=== PATIENT | female | born 1955 | race Caucasian/White ===

== ENCOUNTER → 2016-10-26 | Outpatient (CLI) | payer OTHER ==
[~2016-10-26] MED LIST: ESCI1TAB10 PO; SIMV20TA2 PO
[2016-10-26 13:47] LABS: ALB/GLOB RATIO 1.3 (0.9-2); ALKALINE PHOSPHATASE 82 U/L (45-117); ALT/SGPT 29 U/L (12-78); AST/SGOT 13 U/L (15-37); BLOOD UREA NITROGEN 23 mg/dl (7-18); BUN/CREATININE RATIO 22.9 (10-20); CALCIUM 9.2 mg/dl (8.5-10.1); CARBON DIOXIDE 26 mmol/L (21-32); CHLORIDE 105 mmol/L (98-107); CHOLESTEROL 192 mg/dl (0-200); GLUCOSE 91 mg/dl (70-99); POTASSIUM 3.7 mmol/L (3.5-5.1); SODIUM 140 mmol/L (136-145); TRIGLYCERIDES 151 mg/dl (0-150); VERY LOW DENSITY LIPOPROT CALC 30 mg/dl
[2016-10-26 13:55] LABS: CHOLESTEROL/HDL RATIO 3.9; HDL CHOLESTEROL 49 mg/dl; LDL CHOLESTEROL CALCULATED 113 mg/dl
== END | disposition home or self-care (01) ==
LOC: C.LABPVFM 07:54
PROVIDERS: ATTEND Family Medicine
DX: Z13.21 Encounter for screening for nutritional disorder (principal); I10 Essential (primary) hypertension; E87.6 Hypokalemia; E78.00 Pure hypercholesterolemia, unspecified

== ENCOUNTER → 2017-03-31 | Outpatient (CLI) | payer OTHER ==
[2017-03-31 13:43] LABS: ALKALINE PHOSPHATASE 90 U/L (45-117); ALT/SGPT 42 U/L (12-78); AST/SGOT 23 U/L (15-37); BLOOD UREA NITROGEN 18 mg/dl (7-18); BUN/CREATININE RATIO 18.9 (10-20); CALCIUM 9.5 mg/dl (8.5-10.1); CARBON DIOXIDE 28 mmol/L (21-32); CHLORIDE 103 mmol/L (98-107); CHOLESTEROL 182 mg/dl (0-200); CREATININE 0.95 mg/dl (0.60-1.20); GLUCOSE 76 mg/dl (70-99); HDL CHOLESTEROL 45 mg/dl; LDL CHOLESTEROL CALCULATED 110 mg/dl; POTASSIUM 3.7 mmol/L (3.5-5.1); SODIUM 139 mmol/L (136-145); TRIGLYCERIDES 137 mg/dl (0-150); VERY LOW DENSITY LIPOPROT CALC 27 mg/dl
[2017-03-31 13:44] LABS: ALB/GLOB RATIO 1.3 (0.9-2)
== END | disposition home or self-care (01) ==
LOC: C.LABPVFM 13:32
PROVIDERS: ATTEND Nurse Practitioner Family
DX: E78.00 Pure hypercholesterolemia, unspecified (principal); I10 Essential (primary) hypertension; E87.6 Hypokalemia

== ENCOUNTER 2018-03-14 00:49 | Emergency (ER) | payer OTHER ==
[~2018-03-14] VITALS: Ht 170.2 cm; Wt 93.1 kg
[~2018-03-14 00:49] MED LIST changes: +ACET1TAB84 PO; +CALC-354 PO; +CHOL20007 PO; +FLUTICASONE SPRAY NAE; +HYG25 PO; +POTA10CA28 PO; +SIMV10TA2 PO; -SIMV20TA2 PO
--- NOTE | 2018-03-14 01:17 | EMERGENCY ROOM VISIT NOTE ---
History Report prepared by Torri: Malia Mckeon Under the Supervision of: Sobia TrujilloO. First contact with patient: 01:04 Chief Complaint: ABDOMINAL PAIN Stated Complaint: PAIN IN STOMACH History of Present Illness The patient is a 62 year old female who presents to the Emergency Room with complaints of worsening abdominal pain beginning 4 days ago. She describes the pain as excruciating. The patient states that she was here 4 days ago and had 2 CTs done-one with contrast and one without. She states that she was told that she has a small bowel obstruction and states that her white count was also up. She states that she was placed on Flagyl and was taken off of it 3 nights ago. The patient states that she was fed solid foods before she went home and was discharged 2 days ago at 1100. She states that she could feel her pain worsening with every meal she ate. The patient states that she had diarrhea from the contrast. She states that she had a bowel movement today and that it was not black or bloody. She denies a history of bowel obstructions or abdominal surgeries. The patient reports having fevers and chills when she got home. She does report having nausea but denies vomiting today. The patient also reports feeling bloated and distended. The patient states that she had cooked cereal, a hot dog, cauliflower, broccoli, chicken, and a baked potato. She reports drinking a lot of water and states that this was normal food for her to eat. The patient denies a family history of a cholecystectomy. She states that she has had a colonoscopy that was normal but has never had an endoscopy before. Source of History: patient Onset: 4 days ago Position: abdomen Symptom Intensity: excruciating Timing: worsening Associated Symptoms: + fevers, + chills, + nausea, No vomiting Review of Systems See HPI for pertinent positives & negatives. A total of 10 systems reviewed and were otherwise negative. Past Medical & Surgical Medical Problems: (1) SBO (small bowel obstruction) Family History Patient reports no known family medical history. Social History Smoking Status: Never Smoker Drug Use: none Marital Status: Housing Status: lives with significant other Occupation Status: employed Current/Historical Medications Scheduled Acetaminophen (Tylenol Arthritis Ext Rel), 1,300 MG PO Q12 Calcium Carbonate-Cholecalcife (Caltrate 600+D), 1 TAB PO DAILY Chlorthalidone (Chlorthalidone), 25 MG PO DAILY Cholecalciferol (Vitamin D3), 1 TAB PO DAILY Escitalopram Oxalate (Lexapro), 20 MG PO DAILY Potassium Chloride (Micro-K Ext Rel), 10 MEQ PO DAILY Simvastatin (Zocor), 10 MG PO QPM [Fluticasone [place]], 1 SPRAY HAILEY BID Allergies Coded Allergies: Penicillins (Unverified Allergy, Mild, 03/14/18) Physical Exam Vital Signs Date Time Temp Pulse Resp B/P (MAP) Pulse Ox O2 Delivery O2 Flow Rate FiO2 03/14/18 08:15 68 18 120/70 94 Room Air 03/14/18 07:06 74 18 116/75 91 Room Air 03/14/18 06:37 65 16 122/78 92 Room Air 03/14/18 05:28 61 16 135/61 94 Room Air 03/14/18 03:57 36.5 66 14 120/76 96 Room Air 03/14/18 02:28 66 14 145/82 94 Room Air 03/14/18 01:41 74 03/14/18 00:54 36.5 82 18 149/85 96 Room Air Physical Exam GENERAL: alert, appears mildly uncomfortable, well nourished, no distress, non- toxic EYE EXAM: normal conjunctiva, PERRL and EOM's grossly intact OROPHARYNX: no exudate, no erythema, lips, buccal mucosa, and tongue normal and mucous membranes are moist NECK: supple, no nuchal rigidity, no adenopathy, non-tender LUNGS: Clear to auscultation. Normal chest wall mechanics HEART: no murmurs, S1 normal and S2 normal ABDOMEN: abdomen soft, dull to percussion, pain with palpation of the central abdomen, normo-active bowel sounds, no pulsatile masses, no rebound or guarding. BACK: Back is symmetrical on inspection and there is no deformity, no midline tenderness, no CVA tenderness. SKIN: no rashes and no bruising UPPER EXTREMITIES: upper extremities are grossly normal. LOWER EXTREMITIES: No pitting edema. NEURO EXAM: Normal sensorium, cranial nerves II-XII intact, normal speech, no weakness of arms, no weakness of legs. Medical Decision & Procedures ER Provider Diagnostic Interpretation: Radiology results per my review. Chest X-Ray: No cardiomegaly. No effusion. No wide mediastinum. No consolidation. Abdominal X-Ray: No definite small bowel obstruction. Scattered air. No free air. Laboratory Results 03/14/18 01:43 Red Blood Count 5.16, Mean Corpuscular Volume 84.5, Mean Corpuscular Hemoglobin 27.5, Mean Corpuscular Hemoglobin Concent 32.6, Mean Platelet Volume 9.1, Neutrophils (%) (Auto) 75.7, Lymphocytes (%) (Auto) 15.4, Monocytes (%) (Auto) 6.4, Eosinophils (%) (Auto) 1.5, Basophils (%) (Auto) 0.4, Neutrophils # (Auto) 10.86, Lymphocytes # (Auto) 2.21, Monocytes # (Auto) 0.92, Eosinophils # (Auto) 0.21, Basophils # (Auto) 0.06 03/14/18 01:43 Test 03/14/18 01:43 03/14/18 01:47 03/14/18 04:55 White Blood Count 14.34 K/uL (4.8-10.8) Red Blood Count 5.16 M/uL (4.2-5.4) Hemoglobin 14.2 g/dL (12.0-16.0) Hematocrit 43.6 % (37-47) Mean Corpuscular Volume 84.5 fL (80-100) Mean Corpuscular Hemoglobin 27.5 pg (25-34) Mean Corpuscular Hemoglobin Concent 32.6 g/dl (32-36) Platelet Count 412 K/uL (130-400) Mean Platelet Volume 9.1 fL (7.4-10.4) Neutrophils (%) (Auto) 75.7 % Lymphocytes (%) (Auto) 15.4 % Monocytes (%) (Auto) 6.4 % Eosinophils (%) (Auto) 1.5 % Basophils (%) (Auto) 0.4 % Neutrophils # (Auto) 10.86 K/uL (1.4-6.5) Lymphocytes # (Auto) 2.21 K/uL (1.2-3.4) Monocytes # (Auto) 0.92 K/uL (0.11-0.59) Eosinophils # (Auto) 0.21 K/uL (0-0.5) Basophils # (Auto) 0.06 K/uL (0-0.2) RDW Standard Deviation 41.0 fL (36.4-46.3) RDW Coefficient of Variation 13.4 % (11.5-14.5) Immature Granulocyte % (Auto) 0.6 % Immature Granulocyte # (Auto) 0.08 K/uL (0.00-0.02) Anion Gap 8.0 mmol/L (3-11) Est Creatinine Clear Calc Drug Dose 71.5 ml/min Estimated GFR () 72.7 Estimated GFR (Non- 62.7 BUN/Creatinine Ratio 15.9 (10-20) Calcium Level 9.0 mg/dl (8.5-10.1) Total Bilirubin 0.4 mg/dl (0.2-1) Aspartate Amino Transf (AST/SGOT) 16 U/L (15-37) Alanine Aminotransferase (ALT/SGPT) 39 U/L (12-78) Alkaline Phosphatase 91 U/L (45-117) Troponin I < 0.015 ng/ml (0-0.045) Total Protein 7.1 gm/dl (6.4-8.2) Albumin 3.7 gm/dl (3.4-5.0) Globulin 3.4 gm/dl (2.5-4.0) Albumin/Globulin Ratio 1.1 (0.9-2) Lipase 105 U/L (73-393) Bedside Lactic Acid Venous 1.20 mmol/L (0.90-1.70) Urine Color YELLOW Urine Appearance CLEAR (CLEAR) Urine pH 5.0 (4.5-7.5) Urine Specific [place] 1.015 (1.000-1.030) Urine Protein NEG (NEG) Urine Glucose (UA) NEG (NEG) Urine Ketones NEG (NEG) Urine Occult Blood TRACE (NEG) Urine Nitrite NEG (NEG) Urine Bilirubin NEG (NEG) Urine Urobilinogen NEG (NEG) Urine Leukocyte Esterase LARGE (NEG) Urine WBC (Auto) >30 /hpf (0-5) Urine RBC (Auto) 5-10 /hpf (0-4) Urine Hyaline Casts (Auto) 1-5 /lpf (0-5) Urine Epithelial Cells (Auto) 10-20 /lpf (0-5) Urine Bacteria (Auto) NEG (NEG) Laboratory results per my review. Medications Administered Medications (Trade) Dose Ordered Sig/Yessenia Route Start Time Stop Time Status Last Admin Dose Admin Sodium Chloride 500 ml @ 999 mls/hr Q31M STAT IV 03/14/18 01:22 03/14/18 01:52 DC 03/14/18 01:38 999 MLS/HR Ondansetron HCl (Zofran Inj) 4 mg NOW STAT IV 03/14/18 01:22 03/14/18 01:24 DC 03/14/18 01:38 4 MG Morphine Sulfate (MoRPHine SULFATE INJ) 4 mg NOW STAT IV 03/14/18 01:22 03/14/18 01:24 DC 03/14/18 01:38 4 MG Dicyclomine HCl (Bentyl Cap) 20 mg STK-MED ONCE .ROUTE 03/14/18 02:26 03/14/18 02:27 DC 03/14/18 02:27 20 MG Ketorolac Tromethamine (Toradol Inj) 30 mg NOW STAT IV 03/14/18 03:07 03/14/18 03:09 DC 03/14/18 03:13 30 MG Metoclopramide HCl (Reglan Inj) 10 mg NOW STAT IV 03/14/18 03:36 03/14/18 03:37 DC 03/14/18 03:45 10 MG Diphenhydramine HCl (Benadryl Inj) 12.5 mg NOW STAT IV 03/14/18 03:36 03/14/18 03:37 DC 03/14/18 03:45 12.5 MG Sodium Chloride 500 ml @ 999 mls/hr Q31M STAT IV 03/14/18 05:18 03/14/18 05:48 DC 03/14/18 05:25 999 MLS/HR Ceftriaxone Sodium (Rocephin Inj) 1 gm NOW STAT IV 03/14/18 06:23 03/14/18 06:24 DC 03/14/18 06:30 1 GM Sodium Chloride 1,000 ml @ 100 mls/hr Q10H IV 03/14/18 08:30 04/13/18 08:29 03/14/18 19:29 100 MLS/HR ECG Per My Interpretation Indication: abdominal pain Rate (beats per minute): 67 Rhythm: sinus rhythm Findings: no acute ischemic change, no ectopy, other (normal axis, normal intervals ) ED Course 0109: The patient was evaluated in room C11B. A complete history and physical exam was performed. 0122: Ordered Morphine Sulfate 4 mg IV, Zofran Inj 4 mg IV, Sodium Chloride 500 ml @ 999 mls/hr IV. 0127: Review of EMR showed that 2 CTs scans were performed during the patient's last admission. Bowel obstruction noted. No other acute pathology was found. 0226: Ordered Bentyl Cap 20 mg .ROUTE. 0305: I checked on the patient. She says that she still has pain but not as bad. She reports that she is no longer nauseous. 0307: Ordered Toradol Inj 30 mg IV. 0336: Ordered Benadryl Inj 12.5 mg IV, Reglan Inj 10 mg IV. 0355: I checked on the patient. She is resting and states that her pain is better at a 3/10 now. 0438: I checked on the patient. She states that she does not have any pain and that she is not nauseous. 0454: I reassessed the patient. She is still having pain and is not passing gas. 0517: Per nursing staff, the patient declined the morphine and stated that she does not have any pain. 0518: Ordered Sodium Chloride 500 ml @ 999 mls/hr IV. 0535: I reviewed the patient's case with Rory Atwood PA-C-[facility] who will evaluate the patient. 0615: Rory Atwood PA-C has seen and examined the patient. He discussed the patient's case with Dr. Prajapati. They would like the patient admitted to medicine for conservative management and close observation. Dr. Prajapati will be down to see and examine the patient himself. We agree that the patient does not need an NG tube at this time. 0623: Ordered Rocephin Inj 1 gm IV. Medical Decision Differential diagnosis: Etiologies such as appendicitis, diverticulitis, PUD, biliary pathology, UTI, pancreatitis, obstruction, mesenteric ischemia, aortic pathology, infections, inflammatory bowel disease, renal colic, as well as others were entertained. Patient here presenting with abdominal pain following a recent admission for small bowel obstruction with no prior history of abdominal surgeries. Initially given patient's recent advancement diet thought perhaps symptomatic from initiating high-fiber diet again. Patient's pain was improved but not completely resolved with medications. Nausea improved also although patient with no appetite I do not want to even try ice chips. Patient monitored for several hours as a precaution, allowed to walk around, but again had persistent pain and still denied any flatulence. Patient afebrile. Mild leukocytosis noted again similar to recent admission for small bowel obstruction. Possible UTI noted and patient covered with 1 dose of Rocephin, although patient denies any symptoms. Given patient had 2 CAT scans within the last week, opted for x-rays first and close monitoring and serial abdominal exams. Given patient's description that symptoms and pain were similar to presentation of bowel obstruction patient has not had any flatulence since her bowel movement this morning, I discussed the case with surgery. Patient seen in the emergency room by the surgical PA. I feel patient should be admitted for observation however think she should be admitted to medicine as they do not feel she requires acute surgical intervention. I do not suspect bacteremia/sepsis, or vascular etiology of patient's pain. Patient aware of results and concern given presentation, and is agreeable with plan. Medication Reconcilliation Current Medication List: was personally reviewed by me Blood Pressure Screening Patient's blood pressure: Elevated blood pressure Blood pressure disposition: Elevated BP felt to be situational Consults Time Called: 050 Consulting Physician: Rory Rojas [facility] Returned Call: 05 I reviewed the patient's case with Rory Sutton [facility] who will evaluate the patient. Additional Consults: Time Called: 07 Consulted Physician: [facility] hospitalist Returned Call: 07 Additional Comments: Discussed with Dr. Blanc for additional evaluation and treatment. Impression Primary Impression: Abdominal pain Additional Impressions: Nausea UTI (urinary tract infection) Scribe Attestation The scribe's documentation has been prepared under my direction and personally reviewed by me in its entirety. I confirm that the note above accurately reflects all work, treatment, procedures, and medical decision making performed by me. Departure Information Dispostion Being Evaluated By Hospitalist Referrals Leonela Romo M.D. (PCP) Patient Instructions My [facility] Problem Qualifiers Primary Impression: Abdominal pain Abdominal location: periumbilical Qualified Codes: R10.33 - Periumbilical pain Additional Impressions: UTI (urinary tract infection) Urinary tract infection type: acute cystitis Hematuria presence: without hematuria Qualified Codes: N30.00 - Acute cystitis without hematuria
[2018-03-14] MEDS ORDERED: MoRPHine SULFATE 4 MG/ML 1 ML CARP\\VIAL IV STA ×2 (01:22→05:03)
[2018-03-14] MEDS ORDERED: ONDANSETRON INJ 2 MG/ML 2 ML VIAL IV STA (01:22)
[2018-03-14] MEDS ORDERED: SODIUM CHLORIDE 0.9% 500ML 500 ML IV STA ×2 (01:22→05:18)
[2018-03-14 01:52] LABS: BASO % 0.4 %; BASO ABS # 0.06 K/uL (0-0.2); EOS % 1.5 %; EOS ABS # 0.21 K/uL (0-0.5); HEMATOCRIT 43.6 % (37-47); HEMOGLOBIN 14.2 g/dL (12.0-16.0); IG# 0.08 K/uL (0.00-0.02); LYMPH % 15.4 %; LYMPH ABS # 2.21 K/uL (1.2-3.4); MEAN CELL VOLUME 84.5 fL (80-100); MEAN CORPUSCULAR HEMOGLOBIN 27.5 pg (25-34); MEAN CORPUSCULAR HGB CONC 32.6 g/dl (32-36); MEAN PLATELET VOLUME 9.1 fL (7.4-10.4); MONO % 6.4 %; MONO ABS # 0.92 K/uL (0.11-0.59); NEUT % 75.7 %; NEUT ABS # 10.86 K/uL (1.4-6.5); PLATELET COUNT 412 K/uL (130-400); RED CELL DISTRIBUTION WIDTH CV 13.4 % (11.5-14.5); WHITE BLOOD COUNT 14.34 K/uL (4.8-10.8)
[2018-03-14] MEDS ORDERED: DICYCLOMINE HCL 20 MG TAB PO STA (02:19)
[2018-03-14 02:21] LABS: ALBUMIN 3.7 gm/dl (3.4-5.0); ALKALINE PHOSPHATASE 91 U/L (45-117); ALT/SGPT 39 U/L (12-78); AST/SGOT 16 U/L (15-37); CARBON DIOXIDE 25 mmol/L (21-32); CREATININE 0.98 mg/dl (0.60-1.20); GLUCOSE 105 mg/dl (70-99); LIPASE 105 U/L (73-393); POTASSIUM 3.9 mmol/L (3.5-5.1); SODIUM 140 mmol/L (136-145); TOTAL PROTEIN 7.1 gm/dl (6.4-8.2)
[2018-03-14] MEDS ORDERED: DICYCLOMINE HCL 10 MG CAP ONE (02:26)
[2018-03-14 02:43] LABS: BLOOD UREA NITROGEN 16 mg/dl (7-18)
[2018-03-14] MEDS ORDERED: KETOROLAC TROMETHAMINE 30 MG/ML VIAL IV STA (03:07)
[2018-03-14] MEDS ORDERED: DiphenhydrAMINE HCL 50 MG/ML VIAL IV STA (03:36)
[2018-03-14] MEDS ORDERED: METOCLOPRAMIDE HCL INJ 5 MG/ML 2 ML VIAL IV STA (03:36)
[2018-03-14] MEDS ORDERED: CEFTRIAXONE SOD INJ 1 GM ADDVIAL IV STA (06:23)
--- NOTE | 2018-03-14 06:28 | DIAGNOSTIC IMAGING REPORT ---
ABDOMEN 2VIEW W/PA CHEST RTN CLINICAL HISTORY: abd pain, nausea pain. Nausea. COMPARISON STUDY: None FINDINGS: Several loops of small bowel right flank suggesting a nonspecific ileus. Renal and psoas shows unremarkable. There are no secondary signs of free air. IMPRESSION: Mild ileus. Nonobstructive bowel pattern. Negative chest. The above report was generated using voice recognition software. It may contain grammatical, syntax or spelling errors. Electronically signed by: Nino Neely M.D. 03/14/2018 6:27 AM Dictated Date/Time: 03/14/2018 6:26 AM
--- NOTE | 2018-03-14 06:34 | Surgery Consultation ---
Consultation Date of Consultation: Mar 14, 2018. Attending Physician: Reason for Consultation: abdominal pain History of Present Illness Patient presents to the ED with worsening abdominal pain and nausea x 2 days. She was recently hospitalized for her first SBO and discharged on 03/12/18. She had a repeat CT scan during her previous stay showing resolution of her obstruction. Today she presents with worsening abdominal pain and nausea. Reports her pain is most prominent in the periumbilical region. States "it feels like everytime I eat things dont move through." Reports feeling bloating. Denies any vomiting since her last admission. Last BM yesterday morning which was normal for her. Denies blood in stool. She is urinating without issue. Denies history of previous abdominal surgeries. Patient had a colonoscopy with Dr. Mike in 2013 showing left sided diverticulosis. Denies use of blood thinning or anticoagulant medications. WBC 14.34. Chest and Abdomen X-ray unremarkable. Family History Patient reports no known family medical history. Social History Smoking Status: Never Smoker Drug Use: none Marital Status: Housing Status: lives with significant other Occupation Status: employed Allergies Coded Allergies: Penicillins (Unverified Allergy, Mild, 03/14/18) Home Medications Scheduled Acetaminophen (Tylenol Arthritis Ext Rel), 1,300 MG PO Q12 Calcium Carbonate-Cholecalcife (Caltrate 600+D), 1 TAB PO DAILY Chlorthalidone (Chlorthalidone), 25 MG PO DAILY Cholecalciferol (Vitamin D3), 1 TAB PO DAILY Escitalopram Oxalate (Lexapro), 20 MG PO DAILY Potassium Chloride (Micro-K Ext Rel), 10 MEQ PO DAILY Simvastatin (Zocor), 10 MG PO QPM [Fluticasone [place]], 1 SPRAY HAILEY BID Review of Systems Constitutional: No fever, No chills Respiratory: No shortness of breath Cardiovascular: No chest pain Abdomen: + pain (generalized), + nausea, No vomiting, No diarrhea, No constipation Genitourinary - Female: No dysuria, No hematuria Integumentary: No new/changing skin lesions, No color change Physical Exam Date Time Temp Pulse Resp B/P (MAP) Pulse Ox O2 Delivery O2 Flow Rate FiO2 03/14/18 05:28 61 16 135/61 94 Room Air 03/14/18 03:57 36.5 66 14 120/76 96 Room Air 03/14/18 02:28 66 14 145/82 94 Room Air 03/14/18 01:41 74 03/14/18 00:54 36.5 82 18 149/85 96 Room Air General Appearance: no apparent distress, + obese Head: normocephalic, atraumatic ENT: hearing grossly normal Respiratory/Chest: no respiratory distress Abdomen/GI: soft, no organomegaly, no pulsatile mass, + tenderness (TTP generalized, most prominent in periumbilical area.) Neurologic/Psych: alert, normal mood/affect, oriented x 3 Skin: normal color, warm/dry Laboratory Results Last 24 Hours Test 03/14/18 01:43 03/14/18 01:47 03/14/18 04:55 White Blood Count 14.34 K/uL Red Blood Count 5.16 M/uL Hemoglobin 14.2 g/dL Hematocrit 43.6 % Mean Corpuscular Volume 84.5 fL Mean Corpuscular Hemoglobin 27.5 pg Mean Corpuscular Hemoglobin Concent 32.6 g/dl Platelet Count 412 K/uL Mean Platelet Volume 9.1 fL Neutrophils (%) (Auto) 75.7 % Lymphocytes (%) (Auto) 15.4 % Monocytes (%) (Auto) 6.4 % Eosinophils (%) (Auto) 1.5 % Basophils (%) (Auto) 0.4 % Neutrophils # (Auto) 10.86 K/uL Lymphocytes # (Auto) 2.21 K/uL Monocytes # (Auto) 0.92 K/uL Eosinophils # (Auto) 0.21 K/uL Basophils # (Auto) 0.06 K/uL RDW Standard Deviation 41.0 fL RDW Coefficient of Variation 13.4 % Immature Granulocyte % (Auto) 0.6 % Immature Granulocyte # (Auto) 0.08 K/uL Sodium Level 140 mmol/L Potassium Level 3.9 mmol/L Chloride Level 107 mmol/L Carbon Dioxide Level 25 mmol/L Anion Gap 8.0 mmol/L Blood Urea Nitrogen 16 mg/dl Creatinine 0.98 mg/dl Est Creatinine Clear Calc Drug Dose 71.5 ml/min Estimated GFR () 72.7 Estimated GFR (Non- 62.7 BUN/Creatinine Ratio 15.9 Random Glucose 105 mg/dl Calcium Level 9.0 mg/dl Total Bilirubin 0.4 mg/dl Aspartate Amino Transf (AST/SGOT) 16 U/L Alanine Aminotransferase (ALT/SGPT) 39 U/L Alkaline Phosphatase 91 U/L Troponin I < 0.015 ng/ml Total Protein 7.1 gm/dl Albumin 3.7 gm/dl Globulin 3.4 gm/dl Albumin/Globulin Ratio 1.1 Lipase 105 U/L Bedside Lactic Acid Venous 1.20 mmol/L Urine Color YELLOW Urine Appearance CLEAR Urine pH 5.0 Urine Specific [place] 1.015 Urine Protein NEG Urine Glucose (UA) NEG Urine Ketones NEG Urine Occult Blood TRACE Urine Nitrite NEG Urine Bilirubin NEG Urine Urobilinogen NEG Urine Leukocyte Esterase LARGE Urine WBC (Auto) >30 /hpf Urine RBC (Auto) 5-10 /hpf Urine Hyaline Casts (Auto) 1-5 /lpf Urine Epithelial Cells (Auto) 10-20 /lpf Urine Bacteria (Auto) NEG Assessment & Plan Abdominal pain, nausea, SBO? gastroparesis? Abdomen soft, non-distended, generalized TTP. Pain controlled. no N/V at this time. urinating without issue. stable, afebrile. No acute surgical intervention indicated at this time. May need to consider repeat CT despite recent imaging to further evaluate cause. Will consult GI for further evaluation. Conservative management of now. Admit per medicine service, NPO, IVF, pain medication prn, anti-emetics prn. Can hold on NGT at this time but may need to place if she develops persistent N/V. Findings discussed with Dr. Prajapati, will follow. Please contact with questions or concerns.
--- NOTE | 2018-03-14 06:54 | Surgery Progress Note ---
Surgery Progress Note Date of Service Mar 14, 2018. Subjective See note from Rory Atwood I saw pt in ER and reviewed history recent adm w/ nausea, bloating , abd pain- CT showed mildly dilated small bowel with subsequent re CT w/ contrast- sbo resolved c/o belching, bloating, abd pain- upper abd , bandlike- passing gas, bm yesterday Objective Vital Signs: Date Time Temp Pulse Resp B/P (MAP) Pulse Ox O2 Delivery O2 Flow Rate FiO2 03/14/18 06:37 65 16 122/78 92 Room Air 03/14/18 05:28 61 16 135/61 94 Room Air 03/14/18 03:57 36.5 66 14 120/76 96 Room Air 03/14/18 02:28 66 14 145/82 94 Room Air 03/14/18 01:41 74 03/14/18 00:54 36.5 82 18 149/85 96 Room Air General Appearance: no apparent distress Neck: supple Respiratory/Chest: no respiratory distress Abdomen: normal bowel sounds (has vigorous bowel sounds), non tender (min pain to palpation, no peritoneal irritation), + distended Laboratory Results: Results Past 24 Hours Test 03/14/18 01:43 03/14/18 01:47 03/14/18 04:55 Range/Units White Blood Count 14.34 4.8-10.8 K/uL Red Blood Count 5.16 4.2-5.4 M/uL Hemoglobin 14.2 12.0-16.0 g/dL Hematocrit 43.6 37-47 % Mean Corpuscular Volume 84.5 80-100 fL Mean Corpuscular Hemoglobin 27.5 25-34 pg Mean Corpuscular Hemoglobin Concent 32.6 32-36 g/dl Platelet Count 412 130-400 K/uL Mean Platelet Volume 9.1 7.4-10.4 fL Neutrophils (%) (Auto) 75.7 % Lymphocytes (%) (Auto) 15.4 % Monocytes (%) (Auto) 6.4 % Eosinophils (%) (Auto) 1.5 % Basophils (%) (Auto) 0.4 % Neutrophils # (Auto) 10.86 1.4-6.5 K/uL Lymphocytes # (Auto) 2.21 1.2-3.4 K/uL Monocytes # (Auto) 0.92 0.11-0.59 K/uL Eosinophils # (Auto) 0.21 0-0.5 K/uL Basophils # (Auto) 0.06 0-0.2 K/uL RDW Standard Deviation 41.0 36.4-46.3 fL RDW Coefficient of Variation 13.4 11.5-14.5 % Immature Granulocyte % (Auto) 0.6 % Immature Granulocyte # (Auto) 0.08 0.00-0.02 K/uL Sodium Level 140 136-145 mmol/L Potassium Level 3.9 3.5-5.1 mmol/L Chloride Level 107 98-107 mmol/L Carbon Dioxide Level 25 21-32 mmol/L Anion Gap 8.0 3-11 mmol/L Blood Urea Nitrogen 16 7-18 mg/dl Creatinine 0.98 0.60-1.20 mg/dl Est Creatinine Clear Calc Drug Dose 71.5 ml/min Estimated GFR () 72.7 Estimated GFR (Non- 62.7 BUN/Creatinine Ratio 15.9 10-20 Random Glucose 105 70-99 mg/dl Calcium Level 9.0 8.5-10.1 mg/dl Total Bilirubin 0.4 0.2-1 mg/dl Aspartate Amino Transf (AST/SGOT) 16 15-37 U/L Alanine Aminotransferase (ALT/SGPT) 39 12-78 U/L Alkaline Phosphatase 91 45-117 U/L Troponin I < 0.015 0-0.045 ng/ml Total Protein 7.1 6.4-8.2 gm/dl Albumin 3.7 3.4-5.0 gm/dl Globulin 3.4 2.5-4.0 gm/dl Albumin/Globulin Ratio 1.1 0.9-2 Lipase 105 73-393 U/L Bedside Lactic Acid Venous 1.20 0.90-1.70 mmol/L Urine Color YELLOW Urine Appearance CLEAR CLEAR Urine pH 5.0 4.5-7.5 Urine Specific [place] 1.015 1.000-1.030 Urine Protein NEG NEG Urine Glucose (UA) NEG NEG Urine Ketones NEG NEG Urine Occult Blood TRACE NEG Urine Nitrite NEG NEG Urine Bilirubin NEG NEG Urine Urobilinogen NEG NEG Urine Leukocyte Esterase LARGE NEG Urine WBC (Auto) >30 0-5 /hpf Urine RBC (Auto) 5-10 0-4 /hpf Urine Hyaline Casts (Auto) 1-5 0-5 /lpf Urine Epithelial Cells (Auto) 10-20 0-5 /lpf Urine Bacteria (Auto) NEG NEG Microbiology Results 03/14/18 Urine Culture, Received Pending Assessment & Plan 03/14/18- Nausea, belching, bloating, abd pain- active bowel sounds- not typical of mechanical bowel obstruction- ? enteritis . Will consider small bowel follow through study at some point- would have GI see pt. Order u/s gb to be complete Will follow for now.
[2018-03-14] MEDS ORDERED: ACETAMINOPHEN 325 MG TAB PO PRN (08:30)
[2018-03-14] MEDS ORDERED: ONDANSETRON INJ 2 MG/ML 2 ML VIAL IV PRN (08:30)
[2018-03-14] MEDS ORDERED: SOAP SUDS ENEMA PR ONE (08:45)
[2018-03-14] MEDS ORDERED: IV FLUIDS COMPLETED PRN (09:15)
[2018-03-14] MEDS: SODIUM CHLORIDE 0.9% 1000ML 1,000 ML IV SCH ×2 (09:35→19:29)
[2018-03-14 09:39] VITALS: BP 133/79; PULSE 74; TEMP 36.7; O2SAT 96; Ht 170.2 cm; Wt 93.1 kg
--- NOTE | 2018-03-14 09:49 | History and Physical ---
History & Physical Date & Time of Service: Mar 14, 2018 at 09:10 Chief Complaint: Pain In Stomach Primary Care Physician: Leonela Romo M.D. History of Present Illness pt presents with increased abdominal distension and pain, recently was hospitalized for ileus and resolved symtpoms did see surgery at that time and again this am without concern for an acute abdomen. Pt will be agreeable to observation for enema and cathartic agents Past Medical/Surgical History Medical Problems: (1) SBO (small bowel obstruction) Family History Patient reports no known family medical history. Social History Smoking Status: Never Smoker Drug Use: none Marital Status: Housing status: lives with family Occupational Status: employed Allergies Coded Allergies: Penicillins (Unverified Allergy, Mild, 03/14/18) Home Medications Scheduled Acetaminophen (Tylenol Arthritis Ext Rel), 1,300 MG PO Q12 Calcium Carbonate-Cholecalcife (Caltrate 600+D), 1 TAB PO DAILY Chlorthalidone (Chlorthalidone), 25 MG PO DAILY Cholecalciferol (Vitamin D3), 1 TAB PO DAILY Escitalopram Oxalate (Lexapro), 20 MG PO DAILY Potassium Chloride (Micro-K Ext Rel), 10 MEQ PO DAILY Simvastatin (Zocor), 10 MG PO QPM [Fluticasone [place]], 1 SPRAY HAILEY BID Review of Systems ROS: well nourished well developed. No double vision blurry vision No problems with speech or swallowing No palpitations, chest pain or pressure No Wheezing or breathing issues Diffuse abdominal pain with nausea but no vomiting and although small bowel movements no significant bowel movements No burning urine urine frequency or changes in color No focal joint pain or muscle pain No skin rashes or oral lesions No unusual bruising or bleeding No focused back pain or numbness or loss of strength No changes in memory or confusion Physical Exam Vital Signs Date Time Temp Pulse Resp B/P (MAP) Pulse Ox O2 Delivery O2 Flow Rate FiO2 03/14/18 09:05 60 20 118/67 94 Room Air 03/14/18 08:15 68 18 120/70 94 Room Air 03/14/18 07:06 74 18 116/75 91 Room Air 03/14/18 06:37 65 16 122/78 92 Room Air 03/14/18 05:28 61 16 135/61 94 Room Air 03/14/18 03:57 36.5 66 14 120/76 96 Room Air 03/14/18 02:28 66 14 145/82 94 Room Air 03/14/18 01:41 74 03/14/18 00:54 36.5 82 18 149/85 96 Room Air General Appearance: WD/WN, + mild distress Head: normocephalic, atraumatic Eyes: normal inspection, sclerae normal Neck: supple, no JVD Respiratory/Chest: chest non-tender, lungs clear, normal breath sounds Cardiovascular: regular rate, rhythm, no murmur Abdomen/GI: normal bowel sounds, + distended Back: normal inspection, no CVA tenderness, no muscle spasm Extremities/Musculoskelatal: normal inspection, no pedal edema 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, no motor/sensory deficits, alert, oriented x 3 Skin: normal color, warm/dry Diagnostics Laboratory Results Results Past 24 Hours Test 03/14/18 01:43 03/14/18 01:47 03/14/18 04:55 Range/Units White Blood Count 14.34 4.8-10.8 K/uL Red Blood Count 5.16 4.2-5.4 M/uL Hemoglobin 14.2 12.0-16.0 g/dL Hematocrit 43.6 37-47 % Mean Corpuscular Volume 84.5 80-100 fL Mean Corpuscular Hemoglobin 27.5 25-34 pg Mean Corpuscular Hemoglobin Concent 32.6 32-36 g/dl Platelet Count 412 130-400 K/uL Mean Platelet Volume 9.1 7.4-10.4 fL Neutrophils (%) (Auto) 75.7 % Lymphocytes (%) (Auto) 15.4 % Monocytes (%) (Auto) 6.4 % Eosinophils (%) (Auto) 1.5 % Basophils (%) (Auto) 0.4 % Neutrophils # (Auto) 10.86 1.4-6.5 K/uL Lymphocytes # (Auto) 2.21 1.2-3.4 K/uL Monocytes # (Auto) 0.92 0.11-0.59 K/uL Eosinophils # (Auto) 0.21 0-0.5 K/uL Basophils # (Auto) 0.06 0-0.2 K/uL RDW Standard Deviation 41.0 36.4-46.3 fL RDW Coefficient of Variation 13.4 11.5-14.5 % Immature Granulocyte % (Auto) 0.6 % Immature Granulocyte # (Auto) 0.08 0.00-0.02 K/uL Sodium Level 140 136-145 mmol/L Potassium Level 3.9 3.5-5.1 mmol/L Chloride Level 107 98-107 mmol/L Carbon Dioxide Level 25 21-32 mmol/L Anion Gap 8.0 3-11 mmol/L Blood Urea Nitrogen 16 7-18 mg/dl Creatinine 0.98 0.60-1.20 mg/dl Est Creatinine Clear Calc Drug Dose 71.5 ml/min Estimated GFR () 72.7 Estimated GFR (Non- 62.7 BUN/Creatinine Ratio 15.9 10-20 Random Glucose 105 70-99 mg/dl Calcium Level 9.0 8.5-10.1 mg/dl Total Bilirubin 0.4 0.2-1 mg/dl Aspartate Amino Transf (AST/SGOT) 16 15-37 U/L Alanine Aminotransferase (ALT/SGPT) 39 12-78 U/L Alkaline Phosphatase 91 45-117 U/L Troponin I < 0.015 0-0.045 ng/ml Total Protein 7.1 6.4-8.2 gm/dl Albumin 3.7 3.4-5.0 gm/dl Globulin 3.4 2.5-4.0 gm/dl Albumin/Globulin Ratio 1.1 0.9-2 Lipase 105 73-393 U/L Bedside Lactic Acid Venous 1.20 0.90-1.70 mmol/L Urine Color YELLOW Urine Appearance CLEAR CLEAR Urine pH 5.0 4.5-7.5 Urine Specific [place] 1.015 1.000-1.030 Urine Protein NEG NEG Urine Glucose (UA) NEG NEG Urine Ketones NEG NEG Urine Occult Blood TRACE NEG Urine Nitrite NEG NEG Urine Bilirubin NEG NEG Urine Urobilinogen NEG NEG Urine Leukocyte Esterase LARGE NEG Urine WBC (Auto) >30 0-5 /hpf Urine RBC (Auto) 5-10 0-4 /hpf Urine Hyaline Casts (Auto) 1-5 0-5 /lpf Urine Epithelial Cells (Auto) 10-20 0-5 /lpf Urine Bacteria (Auto) NEG NEG Microbiology Results 03/14/18 Urine Culture, Received Pending Diagnostic Radiology abdominal x ray Mild ileus. Nonobstructive bowel pattern. Negative chest. Impression Assessment and Plan 62 F with recurrent presentation for abdominal pain and distension, concern for possible ileus vs constipation. Did have surgical evaluation in the ER Abdominal pain/Ileus, will have enemas and cathartic agents, reportedly did have colo in last few years by Dr Mike and was unremarkable Hydrate and hold diuretic with recent decrease po intake, Parathyroidectomy, did have supplemental calcium ordered Depression will continue Lexapro has refused dvt prevention in the past, agreeable to scd Resuscitation Status VTE Prophylaxis Will order VTE Prophylaxis: Yes
[2018-03-14 10:00] VITALS: O2SAT 96
[2018-03-14] MEDS: POLYETHYLENE (MIRALAX) 17 GM PACK PO SCH ×2 (10:52→21:16)
[2018-03-14] MEDS: CALCIUM 600MG + VIT D 400 IU TAB PO SCH (10:53)
[2018-03-14] MEDS: ESCITALOPRAM OXALATE 20 MG TAB PO SCH (10:53)
--- NOTE | 2018-03-14 13:02 | Gastrointestinal Consultation ---
Gastrointestinal Consultation Date of Consultation: Mar 14, 2018 Attending Physician: Dr. Blanc Consulting Physician: Dr. Mike/ELISE Portillo Reason for Consultation: abdominal pain, bloating History of Present Illness Patient is a 62 year old female with a history of osteoarthritis, depression, hypercholesterolemia, hypokalemia and hypertension admitted to the hospital today with symptoms of abdominal pain and bloating that has been progressively worsening since discharge two days ago after a hospital admission for a small bowel obstruction. During her prior admission, she did undergo an IV enhanced CT scan of the abdomen and pelvis in the ER which demonstrated a mid to distal ileal small bowel obstruction which was resolved on follow up imaging performed two days later. She states she received oral contrast with the second CT scan although reports of enteric contrast within the rectum was noted on the second CT. She has not had any prior abdominal surgeries but does use daily NSAID therapy with Aleve for hand arthralgias. No tobacco or alcohol. Patient describes the abdominal pain as a periumbilical pain that is a burning and cramping sensation that radiates across her mid abdomen. Pain is associated with bloating and nausea without vomiting. No fevers/chills. Rates the pain as 0 /10 at present after administration of opioid analgesia. Pain is not worsened with eating but states the bloating worsens with eating. Abdominal series on arrival demonstrated "mild ileus" without obstruction or free air. Laboratory testing demonstrated a mild leukocytosis of 14.34. No anemia, liver or renal panel abnormalities. Normal lipase. No family history of Celiac disease or IBD. Son with diverticulosis and recurrent diverticulitis. She remains on a clear liquid diet at present. Has been seen by general surgery. No evidence of mechanical obstruction and therefore no surgical indication. Past Medical/Surgical History Medical Problems: (1) Abdominal pain Status: Acute (2) Nausea Status: Acute (3) UTI (urinary tract infection) Status: Acute Past Medical History: 1. Acute sinusitis 2. Acute URI 3. Depression 4. Hypercholesterolemia 5. Hypokalemia 6. HTN 7. Varicella 8. OA 9. Bronchitis Past Surgical History: 1. Parathyroid surgery 2. Complete colonoscopy Family History Patient reports no known family medical history. see HPI Social History Smoking Status: Never Smoker Alcohol Use: none Drug Use: none Marital Status: Housing Status: lives with significant other Occupation Status: employed Allergies Coded Allergies: Penicillins (Unverified Allergy, Mild, 7/10/18) Current Medications Home Meds and Scripts Medications Dose Route/Sig Max Daily Dose Days Date Category [Fluticasone Ponder] 1 Ponder HAILEY BID 03/09/18 Reported Vitamin D3 (Cholecalciferol) 2,000 Unit Tab 1 Tab PO DAILY 03/09/18 Reported Micro-K Ext Rel (Potassium Chloride) 10 Meq Capcr 10 Meq PO DAILY 03/09/18 Reported Chlorthalidone 25 Mg Tab 25 Mg PO DAILY 03/09/18 Reported Caltrate 600+D (Calcium Carbonate-Cholecalcife) 1 Tab Tab 1 Tab PO DAILY 03/09/18 Reported Zocor (Simvastatin) 10 Mg Tab 10 Mg PO QPM 03/09/18 Reported Tylenol Arthritis Ext Rel (Acetaminophen) 650 Mg Cplt 1,300 Mg PO Q12 03/09/18 Reported Lexapro (Escitalopram Oxalate) 20 Mg Tab 20 Mg PO DAILY 11/02/07 Reported Review of Systems Constitutional: + see HPI Eyes: No eye pain, No redness ENT: No problem reported Respiratory: No cough, No shortness of breath Cardiac: No chest pain, No palpitations Abdomen: + see HPI Musculoskeletal: + see HPI Female : No problem reported Neuro: No problem reported Psych: No problem reported Skin: No problem reported Physical Exam Date Time Temp Pulse Resp B/P (MAP) Pulse Ox O2 Delivery O2 Flow Rate FiO2 03/14/18 10:00 96 Room Air 03/14/18 09:39 36.7 74 18 133/79 96 Room Air 03/14/18 09:05 60 20 118/67 94 Room Air 03/14/18 08:15 68 18 120/70 94 Room Air 03/14/18 07:06 74 18 116/75 91 Room Air 03/14/18 06:37 65 16 122/78 92 Room Air 03/14/18 05:28 61 16 135/61 94 Room Air 03/14/18 03:57 36.5 66 14 120/76 96 Room Air 03/14/18 02:28 66 14 145/82 94 Room Air 03/14/18 01:41 74 03/14/18 00:54 36.5 82 18 149/85 96 Room Air General Appearance: no apparent distress Eyes: EOMI ENT: hearing grossly normal Neck: supple Respiratory/Chest: lungs clear, normal breath sounds, no respiratory distress Cardiovascular: regular rate, rhythm, no gallop, no murmur Abdomen: non tender, soft, + pertinent finding (hypoactive) Extremities: normal range of motion, no pedal edema Neurologic/Psych: alert, normal mood/affect, oriented x 3 Skin: warm/dry Laboratory Results Last 24 Hours Test 03/14/18 01:43 03/14/18 01:47 03/14/18 04:55 White Blood Count 14.34 K/uL Red Blood Count 5.16 M/uL Hemoglobin 14.2 g/dL Hematocrit 43.6 % Mean Corpuscular Volume 84.5 fL Mean Corpuscular Hemoglobin 27.5 pg Mean Corpuscular Hemoglobin Concent 32.6 g/dl Platelet Count 412 K/uL Mean Platelet Volume 9.1 fL Neutrophils (%) (Auto) 75.7 % Lymphocytes (%) (Auto) 15.4 % Monocytes (%) (Auto) 6.4 % Eosinophils (%) (Auto) 1.5 % Basophils (%) (Auto) 0.4 % Neutrophils # (Auto) 10.86 K/uL Lymphocytes # (Auto) 2.21 K/uL Monocytes # (Auto) 0.92 K/uL Eosinophils # (Auto) 0.21 K/uL Basophils # (Auto) 0.06 K/uL RDW Standard Deviation 41.0 fL RDW Coefficient of Variation 13.4 % Immature Granulocyte % (Auto) 0.6 % Immature Granulocyte # (Auto) 0.08 K/uL Sodium Level 140 mmol/L Potassium Level 3.9 mmol/L Chloride Level 107 mmol/L Carbon Dioxide Level 25 mmol/L Anion Gap 8.0 mmol/L Blood Urea Nitrogen 16 mg/dl Creatinine 0.98 mg/dl Est Creatinine Clear Calc Drug Dose 71.5 ml/min Estimated GFR () 72.7 Estimated GFR (Non- 62.7 BUN/Creatinine Ratio 15.9 Random Glucose 105 mg/dl Calcium Level 9.0 mg/dl Total Bilirubin 0.4 mg/dl Aspartate Amino Transf (AST/SGOT) 16 U/L Alanine Aminotransferase (ALT/SGPT) 39 U/L Alkaline Phosphatase 91 U/L Troponin I < 0.015 ng/ml Total Protein 7.1 gm/dl Albumin 3.7 gm/dl Globulin 3.4 gm/dl Albumin/Globulin Ratio 1.1 Lipase 105 U/L Bedside Lactic Acid Venous 1.20 mmol/L Urine Color YELLOW Urine Appearance CLEAR Urine pH 5.0 Urine Specific [place] 1.015 Urine Protein NEG Urine Glucose (UA) NEG Urine Ketones NEG Urine Occult Blood TRACE Urine Nitrite NEG Urine Bilirubin NEG Urine Urobilinogen NEG Urine Leukocyte Esterase LARGE Urine WBC (Auto) >30 /hpf Urine RBC (Auto) 5-10 /hpf Urine Hyaline Casts (Auto) 1-5 /lpf Urine Epithelial Cells (Auto) 10-20 /lpf Urine Bacteria (Auto) NEG Impression Patient is a 62 year old female with a history of recent SBO admitted with periumbilical pain, bloating and abnormal x ray imaging suggestive of an ileus. Diff dx: malabsorption vs constipation vs IBD vs NSAID enteritis vs infection vs other. Plan 1. Clear liquid diet today. 2. NPO after midnight. 3. UGI/small bowel follow through in the morning. 4. Celiac profile. 5. Supportive medical management per primary team. 6. Additional recommendations pending results of testing. Thank you for allowing us to participate in the care of this pleasant patient. If you have any questions or concerns, please do not hesitate to contact us. Agree with ELISE Portillo as above Abd: Soft, Tender RLQ, ND, +BS Continue current therapy UGI with SBFT in AM
--- NOTE | 2018-03-14 14:40 | Medical Student: [facility] ---
Med Student History & Physical Date & Time of Service: Mar 14, 2018 at 14:28 Chief Complaint: Abdominal Pain Primary Care Physician: Leonela Romo M.D. History of Present Illness Source: patient, hospital records Pt presents with about 4 day onset of abdominal pain and nausea. She was recently discharged from [facility] on 03/12 for small bowel obstruction. She did not feel that she ever got back to baseline after her hospitalization. At the time of this exam, she had received morphine in ED, and no longer had abdominal pain, but she described the previous pain as "excruciating" 10/10 in severity. She also complained of nausea. Last bowel movement was yesterday morning, and was normal and no blood present. Denies any urinary sx. Notes appetite is ok, just the pain prevents her from eating. Last meal was in the evening last night. Past Medical/Surgical History Medical Problems: (1) Abdominal pain Status: Acute (2) Nausea Status: Acute (3) UTI (urinary tract infection) Status: Acute PMHx: -hyperparathyroidism s/p parathyroid removal and chronic hypocalcemia -diverticulosis -depression -cervical dysplasia -prior hx of elevated ALT and AST -fatty liver -HTN -HLD PSH -parathyroid removal -R shoulder replacement -Colonoscopy several years prior Family History No hx of liver or bowel issues, no IBD/IBS. No hx of kidney disease. Social History Smoking Status: Never Smoker Drug Use: none Marital Status: Housing status: lives with family Occupational Status: employed Allergies Coded Allergies: Penicillins (Unverified Allergy, Mild, 03/14/18) Medications Acetaminophen (Tylenol Arthritis Ext Rel), 1,300 MG PO Q12 Calcium Carbonate-Cholecalcife (Caltrate 600+D), 1 TAB PO DAILY Chlorthalidone (Chlorthalidone), 25 MG PO DAILY Cholecalciferol (Vitamin D3), 1 TAB PO DAILY Escitalopram Oxalate (Lexapro), 20 MG PO DAILY Potassium Chloride (Micro-K Ext Rel), 10 MEQ PO DAILY Simvastatin (Zocor), 10 MG PO QPM [Fluticasone [place]], 1 SPRAY [place] BID Review of Systems Constitutional: No fever, No chills Respiratory: No cough, No shortness of breath Cardiovascular: No chest pain Abdomen: + pain, + nausea, No diarrhea, No constipation Genitourinary - Female: No dysuria, No urinary frequency, No urinary urgency Neurologic: No weakness Integumentary: No rash Physical Exam Vital Signs (24 Hours) Date Time Temp Pulse Resp B/P (MAP) Pulse Ox O2 Delivery O2 Flow Rate FiO2 03/14/18 10:00 96 Room Air 03/14/18 09:39 36.7 74 18 133/79 96 Room Air 03/14/18 09:05 60 20 118/67 94 Room Air 03/14/18 08:15 68 18 120/70 94 Room Air 03/14/18 07:06 74 18 116/75 91 Room Air 03/14/18 06:37 65 16 122/78 92 Room Air 03/14/18 05:28 61 16 135/61 94 Room Air 03/14/18 03:57 36.5 66 14 120/76 96 Room Air 03/14/18 02:28 66 14 145/82 94 Room Air 03/14/18 01:41 74 03/14/18 00:54 36.5 82 18 149/85 96 Room Air General Appearance: WD/WN, no apparent distress Head: normocephalic, atraumatic Eyes: normal inspection, PERRL ENT: normal ENT inspection Neck: supple, no adenopathy, no JVD Respiratory/Chest: chest non-tender, lungs clear, normal breath sounds, no respiratory distress, no accessory muscle use Cardiovascular: regular rate, rhythm, no edema, no gallop, no murmur, normal peripheral pulses Abdomen/GI: + tenderness (mild - most pronounced centrally), + distended Back: no CVA tenderness Extremities/Musculoskelatal: no calf tenderness, normal capillary refill, no pedal edema Neurologic/Psych: alert, normal mood/affect, oriented x 3 Skin: normal color, warm/dry, no rash Diagnostics Laboratory Results Results Past 24 Hours Test 03/14/18 01:43 03/14/18 01:47 03/14/18 04:55 Range/Units White Blood Count 14.34 4.8-10.8 K/uL Red Blood Count 5.16 4.2-5.4 M/uL Hemoglobin 14.2 12.0-16.0 g/dL Hematocrit 43.6 37-47 % Mean Corpuscular Volume 84.5 80-100 fL Mean Corpuscular Hemoglobin 27.5 25-34 pg Mean Corpuscular Hemoglobin Concent 32.6 32-36 g/dl Platelet Count 412 130-400 K/uL Mean Platelet Volume 9.1 7.4-10.4 fL Neutrophils (%) (Auto) 75.7 % Lymphocytes (%) (Auto) 15.4 % Monocytes (%) (Auto) 6.4 % Eosinophils (%) (Auto) 1.5 % Basophils (%) (Auto) 0.4 % Neutrophils # (Auto) 10.86 1.4-6.5 K/uL Lymphocytes # (Auto) 2.21 1.2-3.4 K/uL Monocytes # (Auto) 0.92 0.11-0.59 K/uL Eosinophils # (Auto) 0.21 0-0.5 K/uL Basophils # (Auto) 0.06 0-0.2 K/uL RDW Standard Deviation 41.0 36.4-46.3 fL RDW Coefficient of Variation 13.4 11.5-14.5 % Immature Granulocyte % (Auto) 0.6 % Immature Granulocyte # (Auto) 0.08 0.00-0.02 K/uL Sodium Level 140 136-145 mmol/L Potassium Level 3.9 3.5-5.1 mmol/L Chloride Level 107 98-107 mmol/L Carbon Dioxide Level 25 21-32 mmol/L Anion Gap 8.0 3-11 mmol/L Blood Urea Nitrogen 16 7-18 mg/dl Creatinine 0.98 0.60-1.20 mg/dl Est Creatinine Clear Calc Drug Dose 71.5 ml/min Estimated GFR () 72.7 Estimated GFR (Non- 62.7 BUN/Creatinine Ratio 15.9 10-20 Random Glucose 105 70-99 mg/dl Calcium Level 9.0 8.5-10.1 mg/dl Total Bilirubin 0.4 0.2-1 mg/dl Aspartate Amino Transf (AST/SGOT) 16 15-37 U/L Alanine Aminotransferase (ALT/SGPT) 39 12-78 U/L Alkaline Phosphatase 91 45-117 U/L Troponin I < 0.015 0-0.045 ng/ml Total Protein 7.1 6.4-8.2 gm/dl Albumin 3.7 3.4-5.0 gm/dl Globulin 3.4 2.5-4.0 gm/dl Albumin/Globulin Ratio 1.1 0.9-2 Lipase 105 73-393 U/L Bedside Lactic Acid Venous 1.20 0.90-1.70 mmol/L Urine Color YELLOW Urine Appearance CLEAR CLEAR Urine pH 5.0 4.5-7.5 Urine Specific [place] 1.015 1.000-1.030 Urine Protein NEG NEG Urine Glucose (UA) NEG NEG Urine Ketones NEG NEG Urine Occult Blood TRACE NEG Urine Nitrite NEG NEG Urine Bilirubin NEG NEG Urine Urobilinogen NEG NEG Urine Leukocyte Esterase LARGE NEG Urine WBC (Auto) >30 0-5 /hpf Urine RBC (Auto) 5-10 0-4 /hpf Urine Hyaline Casts (Auto) 1-5 0-5 /lpf Urine Epithelial Cells (Auto) 10-20 0-5 /lpf Urine Bacteria (Auto) NEG NEG Microbiology Results 03/14/18 Urine Culture, Received Pending Impression Assessment and Plan Pt is a 62F with recent SBO discharged on 03/12/18 who presents with severe abdominal pain and bloating. PMHx significant for diverticulitis. Abdominal Pain - DDx: constipation, IBD, malabsorption, celiac disease -abdominal XR showed mild ileus with nonobstructive bowel pattern. Appears to have fair amount of stool throughout the large and small intestines -surgery consult -do not feel surgery is indicated at this time -GI consult -plan to do UGI/small bowel follow in morning - pt to be NPO after midnight -celiac profile Abnormal UA -pt denies any urinary sx -UCx currently pending Depression - continue Escitalopram 20 mg PO qd Hyperparathyroidism s/p parathyroid removal and chronic hypocalcemia -Calcium 9.0 (03/14) -continue oral Ca supplement Hx of elevated ALT and AST - stable - AST 16, ALT 39 HTN - mildly elevated at admission, but stable since -continue home chlorthalidone 25 mg qd HLD - per outpatient notes stable -continue simvastatin 10 mg qd Level of Care Med/Surg Advanced Directives Existing Living Will: No Existing Power of Workgroup Leader: No DVT Prophylaxis SCDs, other (early ambulation) Note Total Time: Critical Care 30 - 74 minutes
[2018-03-14 15:27] VITALS: BP 128/73; PULSE 69; TEMP 36.6; O2SAT 95
[2018-03-14 23:15] VITALS: BP 130/69; PULSE 78; TEMP 36.9; O2SAT 97
[2018-03-15] MEDS: SODIUM CHLORIDE 0.9% 1000ML 1,000 ML IV SCH ×2 (05:04→13:57)
--- NOTE | 2018-03-15 06:26 | Surgery Progress Note ---
Surgery Progress Note Date of Service Mar 15, 2018. Subjective seems to have rested well- min pain- no N/V Objective Vital Signs: Date Time Temp Pulse Resp B/P (MAP) Pulse Ox O2 Delivery O2 Flow Rate FiO2 03/14/18 23:15 36.9 78 18 130/69 (89) 97 Room Air 03/14/18 23:15 Room Air 03/14/18 19:30 Room Air 03/14/18 15:27 36.6 69 18 128/73 (91) 95 Room Air 03/14/18 10:00 96 Room Air 03/14/18 09:39 36.7 74 18 133/79 96 Room Air 03/14/18 09:05 60 20 118/67 94 Room Air 03/14/18 08:15 68 18 120/70 94 Room Air 03/14/18 07:06 74 18 116/75 91 Room Air 03/14/18 06:37 65 16 122/78 92 Room Air General Appearance: no apparent distress (sleeping, awakened) Respiratory/Chest: no respiratory distress Abdomen: normal bowel sounds, non tender, soft Laboratory Results: Results Past 24 Hours Test 03/15/18 04:44 Range/Units Assessment & Plan 03/15/18- much less distention, abd soft, normal bowel sounds. GI w/u in progress, for UGI/SBF today. overall stable/improved 03/14/18- Nausea, belching, bloating, abd pain- active bowel sounds- not typical of mechanical bowel obstruction- ? enteritis . Will consider small bowel follow through study at some point- would have GI see pt. Order u/s gb to be complete Will follow for now. 03/14/18- Nausea, belching, bloating, abd pain- active bowel sounds- not typical of mechanical bowel obstruction- ? enteritis . Will consider small bowel follow through study at some point- would have GI see pt. Order u/s gb to be complete Will follow for now.
[2018-03-15 06:59] VITALS: BP 145/86; PULSE 68; TEMP 36.6; O2SAT 96
[2018-03-15] MEDS: ESCITALOPRAM OXALATE 20 MG TAB PO SCH (07:05)
[2018-03-15] MEDS: CALCIUM 600MG + VIT D 400 IU TAB PO SCH (07:05)
[2018-03-15] MEDS: POLYETHYLENE (MIRALAX) 17 GM PACK PO SCH (07:06)
[2018-03-15 07:30] LABS: HEMATOCRIT 37.6 % (37-47); HEMOGLOBIN 11.9 g/dL (12.0-16.0); MEAN CELL VOLUME 86.4 fL (80-100); MEAN CORPUSCULAR HEMOGLOBIN 27.4 pg (25-34); MEAN CORPUSCULAR HGB CONC 31.6 g/dl (32-36); MEAN PLATELET VOLUME 9.2 fL (7.4-10.4); PLATELET COUNT 344 K/uL (130-400); RED CELL DISTRIBUTION WIDTH CV 13.4 % (11.5-14.5); RED CELL DISTRIBUTION WIDTH SD 42.5 fL (36.4-46.3); WHITE BLOOD COUNT 7.23 K/uL (4.8-10.8)
--- NOTE | 2018-03-15 08:04 | DIAGNOSTIC IMAGING REPORT ---
GALLBLADDER-ABD LIMITED HISTORY: 62 years-old Female upper abd pain acute right upper quadrant abdominal pain COMPARISON: CT abdomen and pelvis 03/11/2018 TECHNIQUE: Multiple real-time sonographic images of the abdominal right upper quadrant were obtained assessing grayscale appearance and color flow FINDINGS: Increased echogenicity with through transmission of the liver suggests fatty infiltration. No intrahepatic biliary ductal dilation or focal hepatic mass lesion. Pancreas not diagnostically visualized. Gallbladder is unremarkable without wall thickening, shadowing cholelithiasis or pericholecystic fluid. Common bile duct is normal, 4 mm. Right kidney is unremarkable without hydronephrosis. IMPRESSION: 1. No cholelithiasis or sonographic evidence of acute cholecystitis. 2. Hepatic steatosis. 3. No biliary ductal dilation. The above report was generated using voice recognition software. It may contain grammatical, syntax or spelling errors. Electronically signed by: Shabbir Nunn M.D. 03/15/2018 8:02 AM Dictated Date/Time: 03/15/2018 8:00 AM
[2018-03-15 08:08] LABS: CALCIUM 8.1 mg/dl (8.5-10.1); CREATININE 0.82 mg/dl (0.60-1.20); POTASSIUM 3.8 mmol/L (3.5-5.1)
--- NOTE | 2018-03-15 09:02 | DIAGNOSTIC IMAGING REPORT ---
GI SERIES AND SMALL BOWEL CLINICAL HISTORY: hx small bowel obstruction, abdominal pain, bloatingpain. Nausea. COMPARISON STUDY: None FLUOROSCOPY TIME: 3.8 minutes. FINDINGS: Patient initiates swallowing function well. The esophagus is normal in course and caliber. There is a small hiatal hernia. Size and configuration stomach are normal. Duodenal bulb fills well. The duodenal sweep is unremarkable. The mucosal pattern and transit time throughout small bowel are unremarkable. Spot films of the terminal ileum are within normal limits. IMPRESSION: Normal study. Incidental note is made of a very small hiatal hernia. The above report was generated using voice recognition software. It may contain grammatical, syntax or spelling errors. Electronically signed by: Nino Neely M.D. 03/15/2018 9:01 AM Dictated Date/Time: 03/15/2018 8:58 AM
--- NOTE | 2018-03-15 09:54 | Gastroenterology Progress Note ---
Progress Note Date of Service: Mar 15, 2018 Subjective Pt evaluation today including: conversation w/ patient, physical exam, chart review, lab review, review of studies, review of inpatient medication list Patient tolerating diet. No nausea or vomiting. Having some loose stools but not black or bloody stools. Reports minimal pain but states she did have abdominal discomfort after consuming the barium for the small bowel study this morning. Leukocytosis has resolved. UGI with small bowel study was normal. Celiac profile is pending. Review of Systems Constitutional: No fever, No chills Abdomen: + see HPI Medications Current Inpatient Medications Medications (Trade) Dose Ordered Sig/Yessenia Route Start Time Stop Time Status Last Admin Dose Admin Acetaminophen (Tylenol Tab) 650 mg Q4H PRN PO 03/14/18 08:30 04/13/18 08:29 Ondansetron HCl (Zofran Inj) 4 mg Q6H PRN IV 03/14/18 08:30 04/13/18 08:29 Escitalopram Oxalate (Lexapro Tab) 20 mg DAILY PO 03/14/18 10:00 04/13/18 09:59 03/14/18 10:53 20 MG Calcium/Vitamin D (Caltrate Plus Tab) 1 tab DAILY PO 03/14/18 10:00 04/13/18 09:59 03/14/18 10:53 1 TAB Sodium Chloride 1,000 ml @ 100 mls/hr Q10H IV 03/14/18 08:30 04/13/18 08:29 03/15/18 05:04 100 MLS/HR Polyethylene (Miralax Powder Packet) 17 gm BID PO 03/14/18 10:00 04/13/18 09:59 03/14/18 21:16 17 GM Miscellaneous (Iv Fluids Completed) 1 ea PRN PRN N/A 03/14/18 09:15 03/14/19 09:14 Objective Vital Signs Date Time Temp Pulse Resp B/P (MAP) Pulse Ox O2 Delivery O2 Flow Rate FiO2 03/15/18 07:15 Room Air 03/15/18 06:59 36.6 68 18 145/86 (105) 96 Room Air 03/14/18 23:15 36.9 78 18 130/69 (89) 97 Room Air 03/14/18 23:15 Room Air 03/14/18 19:30 Room Air 03/14/18 15:27 36.6 69 18 128/73 (91) 95 Room Air 03/14/18 10:00 96 Room Air Physical Exam General Appearance: no apparent distress Eyes: EOMI ENT: hearing grossly normal Neck: supple Respiratory/Chest: lungs clear, normal breath sounds, no respiratory distress Cardiovascular: regular rate, rhythm Abdomen: normal bowel sounds, soft, + distended, + tenderness (mild periumbilical) Extremities: no pedal edema Neurologic/Psych: alert, normal mood/affect, oriented x 3 Skin: warm/dry Laboratory Results Last 24 Hours Test 03/15/18 06:51 White Blood Count 7.23 K/uL Red Blood Count 4.35 M/uL Hemoglobin 11.9 g/dL Hematocrit 37.6 % Mean Corpuscular Volume 86.4 fL Mean Corpuscular Hemoglobin 27.4 pg Mean Corpuscular Hemoglobin Concent 31.6 g/dl RDW Standard Deviation 42.5 fL RDW Coefficient of Variation 13.4 % Platelet Count 344 K/uL Mean Platelet Volume 9.2 fL Sodium Level 143 mmol/L Potassium Level 3.8 mmol/L Chloride Level 112 mmol/L Carbon Dioxide Level 25 mmol/L Anion Gap 6.0 mmol/L Blood Urea Nitrogen 8 mg/dl Creatinine 0.82 mg/dl Est Creatinine Clear Calc Drug Dose 85.5 ml/min Estimated GFR () 90.1 Estimated GFR (Non- 77.8 BUN/Creatinine Ratio 9.2 Random Glucose 79 mg/dl Calcium Level 8.1 mg/dl Assessment and Plan Patient is a 62 year old female with a history of recent SBO admitted with periumbilical pain, bloating and abnormal x ray imaging suggestive of an ileus with normal small bowel study today. 1. Advance diet to soft, low residue diet as tolerated. 2. Counseled on continued NSAID avoidance. 3. Celiac profile is pending. 4. Recommend outpatient follow up in our office next week. Additional GI work up will be discussed at that time if abdominal pain persists.
--- NOTE | 2018-03-15 14:38 | Medical Student: [facility] ---
Med Student Progress Note Date of Service Mar 15, 2018. Subjective Pt evaluation today including: conversation w/ patient, physical exam, chart review, lab review, review of studies Pain: minor abdominal pain PO Intake: NPO this morning for UGI Voiding: no voiding problems Pt is feeling better with abdominal pain. Continues to have stools (diarrhea). Abdominal pain is less now that she hasn't been eating, but noted increased pain with drinking the barium solution for her UGI. No fever overnight. Still some concern over tolerating solid foods. Review of Systems Constitutional: No fever, No chills Respiratory: No cough, No sputum, No wheezing, No shortness of breath, No dyspnea on exertion Cardiac: No chest pain Abdomen: + pain, + diarrhea, No nausea, No vomiting, No constipation Female : No dysuria Neurologic: No weakness, No numbness/tingling Objective Vital Signs Date Time Temp Pulse Resp B/P (MAP) Pulse Ox O2 Delivery O2 Flow Rate FiO2 03/15/18 07:15 Room Air 03/15/18 06:59 36.6 68 18 145/86 (105) 96 Room Air 03/14/18 23:15 36.9 78 18 130/69 (89) 97 Room Air 03/14/18 23:15 Room Air 03/14/18 19:30 Room Air 03/14/18 15:27 36.6 69 18 128/73 (91) 95 Room Air Physical Exam General Appearance: WD/WN, no apparent distress Eyes: bilateral eyes normal inspection ENT: normal ENT inspection Neck: supple, no adenopathy, no JVD Respiratory/Chest: chest non-tender, lungs clear, normal breath sounds, no respiratory distress, no accessory muscle use Cardiovascular: regular rate, rhythm, no edema, no gallop, no murmur Abdomen: normal bowel sounds, soft, + distended, + tenderness (very mild), + pertinent finding (percussion = tympanic) Extremities: no pedal edema, no calf tenderness Neurologic/Psychiatric: alert, normal mood/affect, oriented x 3 Skin: normal color, warm/dry, no rash Laboratory Results Last 24 Hours Test 03/15/18 06:51 White Blood Count 7.23 K/uL Red Blood Count 4.35 M/uL Hemoglobin 11.9 g/dL Hematocrit 37.6 % Mean Corpuscular Volume 86.4 fL Mean Corpuscular Hemoglobin 27.4 pg Mean Corpuscular Hemoglobin Concent 31.6 g/dl RDW Standard Deviation 42.5 fL RDW Coefficient of Variation 13.4 % Platelet Count 344 K/uL Mean Platelet Volume 9.2 fL Sodium Level 143 mmol/L Potassium Level 3.8 mmol/L Chloride Level 112 mmol/L Carbon Dioxide Level 25 mmol/L Anion Gap 6.0 mmol/L Blood Urea Nitrogen 8 mg/dl Creatinine 0.82 mg/dl Est Creatinine Clear Calc Drug Dose 85.5 ml/min Estimated GFR () 90.1 Estimated GFR (Non- 77.8 BUN/Creatinine Ratio 9.2 Random Glucose 79 mg/dl Calcium Level 8.1 mg/dl Assessment and Plan Assessment and Plan: Pt is a 62F with recent SBO discharged on 03/12/18 who presents with severe abdominal pain and bloating. PMHx significant for diverticulitis. Abdominal Pain - improving - DDx: constipation, IBD, malabsorption, celiac disease -abdominal XR showed mild ileus with nonobstructive bowel pattern. Appears to have fair amount of stool throughout the large and small intestines -GB u/s (03/15) - no cholelithiasis/acute cholecystics. ' -consider HIDA scan outpatient -WBCs WNL from 14.3 -surgery consult -do not feel surgery is indicated at this time -GI consult -UGI (03/15): Normal study. Incidental note is made of a very small hiatal hernia. -celiac profile - pending (03/15) -increase pt's diet to full to see how well the food is tolerated Abnormal UA -pt denies any urinary sx -UCx currently pending (03/15) Depression - stable - continue Escitalopram 20 mg PO qd Hyperparathyroidism s/p parathyroid removal and chronic hypocalcemia - Calcium decreased to 8.1 from 9.0 - likely due to pt being NPO this morning for UGI and not having dose -Continue monitoring -continue oral Ca supplement Hx of elevated ALT and AST - stable - AST 16, ALT 39 HTN - mildly elevated at admission, but stable since -continue home chlorthalidone 25 mg qd HLD - per outpatient notes stable -continue simvastatin 10 mg qd
--- NOTE | 2018-03-15 15:26 | Discharge Instructions ---
Discharge Instructions Date of Service Mar 15, 2018. Admission Reason for Admission: Abdominal Pain Discharge Discharge Diagnosis / Problem: abdominal pain Discharge Goals Goal(s): Diagnostic testing, Therapeutic intervention Activity Recommendations Activity Limitations: as noted below Lifting Limitations: gradually increase as tolerated . Current Hospital Diet Patient's current hospital diet: Regular Diet Discharge Diet Recommended Diet: Gluten Free Diet Pending Studies Studies pending at discharge: no Laboratory Results Hemoglobin A1c Test 03/09/18 09:05 Range/Units Estimated Average Glucose 117 mg/dl Hemoglobin A1c 5.7 H 4.5-5.6 % Medical Emergencies . Who to Call and When: Medical Emergencies: If at any time you feel your situation is an emergency, please call 911 immediately. . Non-Emergent Contact Non-Emergency issues call your: Primary Care Provider Call Non-Emergent contact if: temperature is above 101, your pain is not controlled . . "Provider Documentation" section prepared by Albino Blanc. .
[2018-03-15 15:28] VITALS: BP 155/82; PULSE 76; TEMP 36.8; O2SAT 96
[2018-03-15 16:08] VITALS: BP 155/82; PULSE 76; TEMP 36.8; O2SAT 96
--- NOTE | 2018-03-15 19:16 | Discharge Summary ---
Discharge Summary Date of Service Mar 15, 2018. Discharge Summary Admission Date: Mar 14, 2018 at 08:33 Discharge Date: Mar 15, 2018 Discharge Disposition: Home Principal Diagnosis: abdominal pain, Procedures: small bowel follow thru, negative Discharge Exam Review of Systems: Constitutional: No fever, No chills Respiratory: No cough, No shortness of breath Cardiovascular: No chest pain, No edema Abdomen: + pain (minor), No nausea, No diarrhea Musculoskeletal: + swelling, No joint pain, No muscle pain Physical Exam: General Appearance: WD/WN, no apparent distress Eyes: normal inspection, sclerae normal Neck: supple, no JVD Respiratory/Chest: chest non-tender, lungs clear Cardiovascular: regular rate, rhythm, no murmur Abdomen / GI: normal bowel sounds, soft, + tenderness Neurologic/Psychiatric: alert, oriented x 3 Hospital Course 62 F with recurrent presentation for abdominal pain and distension, concern for possible ileus vs constipation. Did have surgical evaluation in the ER Abdominal pain/Ileus, bowel movements with enemas and cathartic agents, Dr Mike ordered a small bowel follow which was negative and general surgery a GB us which was negative also, recommend gluten free diet as a start to try resume home antihypertensives Parathyroidectomy,supplemental calcium ordered Depression Germaine has refused dvt prevention in the past, agreeable to scd Total Time Spent: Greater than 30 minutes This includes examination of the patient, discharge planning, medication reconciliation, and communication with other providers. Discharge Instructions Please refer to the electronic Patient Visit Report (Discharge Instructions) for additional information.
== END 2018-03-15 16:30 | disposition home or self-care (01) ==
LOC: C.EDB 00:50 → C.MSN 08:33 → ENRESERV 08:57
PROVIDERS: ADMIT Internal Medicine; ATTEND Internal Medicine
DX: R10.9 Unspecified abdominal pain (principal); F32.9 Major depressive disorder, single episode, unspecified; M19.90 Unspecified osteoarthritis, unspecified site; E78.00 Pure hypercholesterolemia, unspecified; I10 Essential (primary) hypertension; E87.6 Hypokalemia; Z88.0 Allergy status to penicillin

== ENCOUNTER → 2018-04-24 | Outpatient (CLI) | payer OTHER ==
--- NOTE | 2018-04-24 12:33 | DIAGNOSTIC IMAGING REPORT ---
THORACIC SPINE 3 VIEWS ROUTINE HISTORY: 62 years-old Female Thoracic spine pain acute upper back pain. COMPARISON: CT abdomen and pelvis 03/11/2018 TECHNIQUE: 3 views of the thoracic spine. FINDINGS: There are 12 rib-bearing thoracic-type vertebral segments present. No acute fracture or subluxation. Multilevel spondylitic spurring with mild intervertebral disc space narrowing. Degenerative changes of the imaged cervical spine. The heart appears mildly enlarged. Imaged lung bowman appear clear. IMPRESSION: Multilevel spondylitic spurring without acute fracture or subluxation. The above report was generated using voice recognition software. It may contain grammatical, syntax or spelling errors. Electronically signed by: Shabbir Nunn M.D. 04/24/2018 12:31 PM Dictated Date/Time: 04/24/2018 12:30 PM
== END | disposition home or self-care (01) ==
LOC: C.RADPV 12:08
PROVIDERS: ATTEND Nurse Practitioner
DX: M54.6 Pain in thoracic spine (principal); M77.9 Enthesopathy, unspecified

== ENCOUNTER 2019-01-19 06:00 | Inpatient (IN) ==
[2019-01-19 06:29] LABS: Basophils # (auto) 0.04 K/uL (0-0.2); Basophils % (auto) 0.3 %; Eosinophils # (auto) 0.05 K/uL (0-0.5); Eosinophils % (auto) 0.4 %; Hematocrit (blood only) 43.1 % (37-47); Hemoglobin 14.7 g/dL (12.0-16.0); Immature Granulocytes # (auto) 0.06 K/uL (0.00-0.02); Immature Granulocytes % (auto) 0.5 %; Lymphocytes # (auto) 2.34 K/uL (1.2-3.4); Lymphocytes % (auto) 17.9 %; Mean Corpuscular Hgb Conc 34.1 g/dL (32-36); Mean Platelet Volume 8.9 fL (7.4-10.4); Monocytes # (auto) 0.67 K/uL (0.11-0.59); Monocytes % (auto) 5.1 %; Neutrophils # (auto) 9.89 K/uL (1.4-6.5); Neutrophils % (auto) 75.8 %; Platelet Count 443 K/uL (130-400); RDW Coefficient of Variation 13.9 % (11.5-14.5); RDW Standard Deviation 40.1 fL (36.4-46.3); Red Blood Count 5.39 M/uL (4.2-5.4); White Blood Count 13.05 K/uL (4.8-10.8)
[2019-01-19 06:49] LABS: Albumin Level 3.8 gm/dl (3.4-5.0); BUN Creatinine Ratio 17.5 (10-20); Calcium 10.1 mg/dl (8.5-10.1); Creatinine Clr Calc Pharmacy 62.9 ml/min; Est GFR (African American) 63.5; Est GFR (Non-African American) 54.7; Potassium 3.3 mmol/L (3.5-5.1)
[2019-01-19 06:51] LABS: Bilirubin,Total 0.6 mg/dl (0.2-1); Globulin 3.9 gm/dl (2.5-4.0); Total Protein 7.7 gm/dl (6.4-8.2)
[2019-01-19] MEDS ORDERED: ONDANSETRON INJ 2 MG/ML 2 ML VIAL IV STA (06:53)
[2019-01-19] MEDS ORDERED: SODIUM CHLORIDE 0.9% 1000ML 1,000 ML IV STA (06:53)
[2019-01-19] MEDS ORDERED: HYDROmorphone INJ 0.5 MG/0.5 ML SYR IV PRN (06:53)
--- NOTE | 2019-01-19 07:14 | Emergency Department Note ---
Entered by Clarissa Beauchamp acting as a scribe for Joe Crabtree MD ED Provider Note CHIEF COMPLAINT: Abdominal pain HISTORY OF PRESENT ILLNESS: The patient is a 63 year old female who presents to the Emergency Room with complaints of a persistent abdominal pain that began yesterday. The patient reports that the pain is located in her upper abdomen and states she has been evaluated twice for this at this hospital in the past. She notes that she did have CT scans of her abdomen during these visits. She also reports that she had a colonoscopy a week ago and was negative. She rates her current pain a 5/10 but states it does get worse at times. She denies any previous abdominal surgeries. She also notes that she has been nauseous and bloated as well. She reports that she does experience chills and cold sweats at times as well as lightheadedness with severe pain. She states that at times the pain does radiate to her back at times. The patient denies LOC, headache, fevers, chest pain, breathing difficulties, vomiting, melena, hematochezia, urinary symptoms, rash, coughs, leg swelling, or other complaints. REVIEW OF SYSTEMS: See HPI for pertinent positives and negatives. A total of ten systems were reviewed and were otherwise negative. PMHx/PSHx: GERD HTN HLD History of a colonoscopy. History of parathyroidectomy. SOCIAL HISTORY: Patient lives at home. . PHYSICAL EXAM: GENERAL: Awake, alert, mildly uncomfortable appearing, in no distress HENT: Normocephalic, atraumatic. Oropharynx unremarkable. EYES: PERRL. Normal conjunctiva. Sclera non-icteric. NECK: Inspection normal. Non-tender. Supple. No nuchal rigidity. FROM. No masses. RESPIRATORY: Clear to auscultation. No wheezes. No rales. Normal respiratory effort. CARDIAC: Normal rate. Normal rhythm. No murmurs. No rubs. Extremities warm and well perfused. Pulses equal. No JVD. GI: Soft, non-distended. Epigastric tenderness to palpation. No rebound or guarding. No masses. RECTAL: Deferred. MUSCULOSKELETAL: Atraumatic. Chest examination reveals no tenderness. The back is symmetrical on inspection without obvious abnormality. There is no CVA tenderness to palpation. No joint edema. LOWER EXTREMITIES: Calves are equal size bilaterally and non-tender. No edema. No discoloration. NEURO: Normal sensorium. No sensory or motor deficits noted. SKIN: No rash or jaundice noted. EMERGENCY DEPARTMENT COURSE: 0648: The patient was evaluated in room A4B, and a complete history and physical examination were performed. 1055: I updated the patient on her lab and imaging results. 1109: I discussed the patients case with Dr. Machado [facility] Hospitalist. She wi ll evaluate the patient for further management. MEDICAL DECISION MAKING: Prior records/ancillary studies reviewed. Imaging previously noted a SBO which subsequently spontaneously resolved. Triage Nursing notes reviewed and agree them. The patient's history was concerning for abdominal pain. Differential diagnosis: Etiologies such as PUD, biliary pathology, UTI, pancreatitis, appendicitis, diverticulitis, obstruction, mesenteric ischemia, aortic pathology, infe ctions, inflammatory bowel disease, renal colic, as well as others were entertained. Physical examination findings: As above. Epigastric tenderness. ER treatment provided: Normal saline hydration IV Zofran IV Dilaudid On reassessment the patient felt better. Diagnostics interpreted by me: The labs revealed a mild leukocytosis on CBC with left shift on differential. The patient had an unremarkable chemistry panel. LFTs and lipase negative. Imaging studies: CT scan of the abdomen pelvis performed. Patient appears to have inflammation of her terminal ileum and resulting partial small bowel obstruction. Etiology of this is not known at this time but she will need further management in the hospital. Patient was educated. She was in agreement for further management. Consultation: A consultation was placed with the hospitalist service. The case was discussed and diagnostics were reviewed. The patient was evaluated in the ER for further treatment. IMPRESSION: Epigastric abdominal pain SBO Leukocytosis PLAN: Being evaluated by hospitalist. The scribe's documentation has been prepared under my direction and personally reviewed by me in its entirety. I confirm that the note above accurately reflects all work, treatment, procedures, and medical decision making performed by me. Impression & Plan Epigastric abdominal pain, SBO (small bowel obstruction), Leukocytosis Past Med/Surg History Medical History Cervical stenosis of spinal canal Hyperlipidemia Hypertension Depression GERD (gastroesophageal reflux disease) Osteoarthritis Cervical radiculopathy Hiatal hernia History of claustrophobia Osteoarthritis Small bowel obstruction Surgical History History of tooth extraction History of parathyroidectomy PARTIAL History of colonoscopy History of repair of rotator cuff RT Fusion of spine CERVICAL Social History Preferred Language: Czech Communication Ability: Effective Inspector [employer] Required: No Beliefs That Will Affect Care: None Current Living Situation: Spouse Other Information That Helps Us Care for You: No Feels Safe at Home: Yes Safety Concerns: Feels Safe At This Time Smoking Status: Never smoker Do You Dip or Chew Tobacco: No Second Hand Exposure: No Tobacco Cessation Education Requested by Patient: No Hx Alcohol Use: No Hx Substance Use: No Results & Data Vital Signs Vital Signs - 24 hr 01/19/19 06:05 01/19/19 07:02 01/19/19 09:25 Temperature 36.6 C Temperature Source Oral Sepsis Recent Fever Within 48 Hours No Sepsis Action Taken by Nursing No Action Required Pulse Rate 91 H 76 Pulse Rate [Right Finger] 77 Respiratory Rate 20 18 20 Blood Pressure 115/76 Blood Pressure [Right Arm] 177/90 H Blood Pressure Mean 89 Blood Pressure Mean [Right Arm] 119 Blood Pressure Position Sitting Blood Pressure Position [Right Arm] Pulse Oximetry 94 94 97 Oxygen Delivery Method Room Air Room Air 01/19/19 10:31 Temperature Temperature Source Sepsis Recent Fever Within 48 Hours Sepsis Action Taken by Nursing Pulse Rate Pulse Rate [Right Finger] Respiratory Rate Blood Pressure Blood Pressure [Right Arm] 138/77 Blood Pressure Mean Blood Pressure Mean [Right Arm] 97 Blood Pressure Position Blood Pressure Position [Right Arm] Lying Pulse Oximetry Oxygen Delivery Method Home Medications Current Medication List: was personally reviewed by me Laboratory Data Attestation: I reviewed the patient's lab results. Result diagrams: 01/19/19 06:16 01/19/19 06:16 Lab Results 01/19/19 01/19/19 01/19/19 Range/Units 06:16 06:16 07:03 WBC 13.05 H (4.8-10.8) K/uL RBC 5.39 (4.2-5.4) M/uL Hgb 14.7 (12.0-16.0) g/dL Hct 43.1 (37-47) % MCV 80.0 (80-100) fL MCH 27.3 (25-34) pg MCHC 34.1 (32-36) g/dL RDW Std Deviation 40.1 (36.4-46.3) fL RDW Coeff of Shaq 13.9 (11.5-14.5) % Plt Count 443 H (130-400) K/uL MPV 8.9 (7.4-10.4) fL Immature Gran % (Auto) 0.5 % Neut % (Auto) 75.8 % Lymph % (Auto) 17.9 % Traverse % (Auto) 5.1 % Eos % (Auto) 0.4 % Baso % (Auto) 0.3 % Immature Gran # (Auto) 0.06 H (0.00-0.02) K/uL Neut # (Auto) 9.89 H (1.4-6.5) K/uL Lymph # (Auto) 2.34 (1.2-3.4) K/uL Traverse # (Auto) 0.67 H (0.11-0.59) K/uL Eos # (Auto) 0.05 (0-0.5) K/uL Baso # (Auto) 0.04 (0-0.2) K/uL Sodium 135 L (136-145) mmol/L Potassium 3.3 L (3.5-5.1) mmol/L Chloride 99 (98-107) mmol/L Carbon Dioxide 27 (21-32) mmol/L Anion Gap 9.0 (3-11) BUN 19 H (7-18) mg/dl Creatinine 1.09 (0.6-1.2) mg/dl Est Cr Clr Drug Dosing 62.9 ml/min Est GFR ( Amer) 63.5 Est GFR (Non-Af Amer) 54.7 BUN/Creatinine Ratio 17.5 (10-20) Glucose 110 H (70-99) mg/dl Calcium 10.1 (8.5-10.1) mg/dl Total Bilirubin 0.6 (0.2-1) mg/dl AST 25 (15-37) U/L ALT 50 (12-78) U/L Alkaline Phosphatase 115 (45-117) U/L Total Protein 7.7 (6.4-8.2) gm/dl Albumin 3.8 (3.4-5.0) gm/dl Globulin 3.9 (2.5-4.0) gm/dl Albumin/Globulin Ratio 1.0 (0.9-2) Lipase 82 (73-393) U/L Urine Color Yellow Urine Appearance Clear (Clear) Urine pH 7.5 (4.5-7.5) Ur Specific Wolcott 1.015 (1.000-1.030) Urine Protein Trace H (Negative) Urine Glucose (UA) Negative (Negative) Urine Ketones Trace H (Negative) Urine Blood Trace H (Negative) Urine Nitrite Negative (Negative) Urine Bilirubin Negative (Negative) Urine Urobilinogen Negative (Negative) Ur Leukocyte Esterase 2+ H (Negative) Urine WBC (Auto) 10-30 H (0-5) /hpf Urine RBC (Auto) 5-10 H (0-4) /hpf U Hyaline Cast (Auto) 1-5 (0-5) /lpf U Epithel Cells (Auto) >30 H (0-5) /lpf Urine Bacteria (Auto) 1+ H (Negative) Urine RBC Not Reportable Urine WBC Not Reportable Ur Epithelial Cells Not Reportable Urine Bacteria Not Reportable Administered Medications Hydromorphone HCl (Dilaudid) 0.5 mg IV Q15M PRN PRN Reason: Pain Stop: 02/02/19 06:52 Last Admin: 01/19/19 07:01 Dose: 0.5 mg Documented by: [id number] Potassium Chloride/Dextrose/Sod Cl (D5w And 1/2nss + 20meq Kcl) 20 meq in 1,000 mls @ 100 mls/hr IV .Q10H SERAFIN Stop: 02/18/19 14:59 Last Infusion: 01/19/19 16:19 Dose: 0 mls/hr Documented by: [id number] Admin: 01/19/19 14:51 Dose: 100 mls/hr Documented by: [id number] Potassium Chloride (K Grzegorz / Wtr) 10 meq in 100 mls @ 100 mls/hr IV Q1H SERAFIN Stop: 01/19/19 16:59 Last Infusion: 01/19/19 16:19 Dose: 0 mls/hr Documented by: [id number] Admin: 01/19/19 15:53 Dose: 50 mls/hr Documented by: [id number] Ioversol (Optiray 320 100ml) 92 ml IV ONCE PRN PRN Reason: Interaction Checking Stop: 05/21/19 09:18 Last Admin: 01/19/19 09:20 Dose: 92 ml Documented by: [id number] Discontinued Medications Sodium Chloride (Nss 1000ml) 1,000 mls @ 125 mls/hr IV .Q8H STA Stop: 01/19/19 14:52 Last Infusion: 01/19/19 14:39 Dose: 0 mls/hr Documented by: [id number] Admin: 01/19/19 07:01 Dose: 125 mls/hr Documented by: [id number] Ondansetron HCl (Zofran) 4 mg IV NOW STA Stop: 01/19/19 06:54 Last Admin: 01/19/19 07:01 Dose: 4 mg Documented by: [id number] Imaging Data Radiologist's Impression: Radiology results as stated below per my review and the radiologist's interpretation: ADDENDUM Please see corrected impression below: CORRECTED IMPRESSION: 1. Abnormally distended and mildly inflamed appearing distal ileum in the right lower quadrant. A partial low-grade bowel obstruction is suspected at this site, presumably from adhesions or an inflammatory stenosis. The etiology of the apparent inflammation is not clear THOUGH MAY POTENTIALLY BE SECONDARY TO IMPRESSION #2. Ischemia AND INFECTION ARE felt to be unlikely. Associated ascites further suggests inflammation. No evidence of perforation. 2. Focally infiltrated fat in the pelvis associated with the sigmoid colon and adjacent small bowel. This may represent an omental infarct. The appearance is not characteristic of an epiploic appendagitis. 3. Hepatic steatosis. 4. Additional chronic findings as above. Electronically signed by: Angel Baeza M.D. 01/19/2019 9:[address] abd pelvis oral and IV con CLINICAL HISTORY: 63 years-old Female presenting with upper abd pain, elevated WBC. TECHNIQUE: Multidetector CT of the abdomen and pelvis was performed after the administration of oral and intravenous contrast. IV contrast: 92 mL of Optiray 320. One or more dose lowering techniques were used consistent with the principles of ALARA (as low as reasonably achievable), including automatic exposure control, mA or kV adjustment to individual patient size, and/or use of iterative reconstruction. COMPARISON: 03/11/2018. CT DOSE (mGy.cm): The estimated cumulative dose is 1059.46 mGy.cm. 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 Lung bases: Normal heart size. Mitral annular calcification. No pericardial or pleural effusion. Extensive dependent bandlike opacities likely atelectasis. Liver: Normal morphology apart from mild enlargement. The liver measures 19.3 cm in maximal sagittal dimension. Density suggestive of hepatic steatosis. Vague lesion may be present at the inferior aspect of the left hepatic lobe in the medial segment (series 3 image 131), possibly hemangioma but unchanged from prior. Patent hepatic vasculature. Biliary: No intrahepatic or extrahepatic biliary ductal dilatation. Normal gallbladder. Pancreas: Mild parenchymal atrophy. Spleen: Normal. Adrenal glands: 1.1 cm nodule in the left adrenal gland unchanged from prior. This is indeterminate though its stability suggests a benign adenoma. Right adrenal gland normal. Kidneys and ureters: Well-defined hypodense lesion at the upper pole the right kidney likely cyst. No nephrolithiasis or hydronephrosis. Ureters nondistended. Bladder: Normal. Pelvic organs: Uterus and ovaries normal. Bowel: Infiltrated inflamed fat along the course of the mid sigmoid colon (series 3 image 355). Adjacent peritoneal thickening and possible adhesions to regional small bowel (series 3 image 350). Mild wall thickening of small bowel in the distal ileum, which is also distended. Oral contrast has not yet transited to the terminal ileum. Abnormal small bowel is located in the right lower quadrant and has a smooth upstream transition to a normal caliber. A focal downstream transition point is suspected in the right lower quadrant (series 3 image 366). Oral contrast transits beyond this point. The appendix is normal. Peritoneal cavity: Trace interloop fluid within the mesentery of the right lower quadrant small bowel. There is also trace free fluid elsewhere in the right lower quadrant and pelvis. No free intraperitoneal gas. Lymph nodes: No enlarged lymph nodes in the abdomen or pelvis. Vasculature: Aorta and IVC patent and normal in caliber. Abdominal wall: Diastasis of the rectus abdominis in the periumbilical region. Musculoskeletal: Degenerative changes of the spine. IMPRESSION: 1. Abnormally distended and mildly inflamed appearing distal ileum in the right lower quadrant. A partial low-grade bowel obstruction is suspected at this site, presumably from adhesions or an inflammatory stenosis. The etiology of the apparent inflammation is not clear. Ischemia is felt to be unlikely. Associated ascites further suggests inflammation. No evidence of perforation. 2. Focally infiltrated fat in the pelvis associated with the sigmoid colon and adjacent small bowel. This may represent an omental infarct. The appearance is not characteristic of an epiploic appendagitis. 3. Hepatic steatosis. 4. Additional chronic findings as above. Electronically signed by: Angel Baeza M.D. 01/19/2019 9:37 AM Blood Pressure Blood Pressure Findings: Normal blood pressure Blood Pressure Disposition: did not require urgent referral Discharge Plan Visit Data *Final* Discharge Date/Time: 01/19/19 13:05 Chief Complaint: Abdominal Pain Stated Complaint: SEVERE STOMACH PAIN ED Provider: Joe Crabtree Discharge Problem: Epigastric abdominal pain, SBO (small bowel obstruction), Leukocytosis Patient Disposition: Admitted As Inpatient Discharge Instructions Interventions: ED Discharge Assessment Last Done: 01/19/19 13:05 Discharge Problem: Leukocytosis Qualifiers: Leukocytosis type: unspecified Qualified Code(s): D72.829 - Elevated white blood cell count, unspecified The scribe's documentation has been prepared under my direction and personally reviewed by me in its entirety. I confirm that the note above accurately reflects all work, treatment, procedures, and medical decision making performed by me.
[2019-01-19 07:20] LABS: Appearance Urine Clear (Clear); Bilirubin Urine Negative (Negative); Blood Urine Trace (Negative); Color Urine Yellow; Glucose Urine UA Negative (Negative); Ketones Urine Trace (Negative); Leukocyte Esterase Urine 2+ (Negative); Nitrite Urine Negative (Negative); Specific Gravity Urine 1.015 (1.000-1.030); Urobilinogen Urine Negative (Negative); pH Urine 7.5 (4.5-7.5)
[2019-01-19 07:28] LABS: Protein Urine Trace (Negative)
[2019-01-19 07:38] LABS: Epithelial Cell Urine Auto >30 /lpf (0-5)
[2019-01-19 07:42] LABS: Bacteria Urine Automated 1+ (Negative)
[2019-01-19] MEDS ORDERED: IOVERSOL 100ml IV PRN (09:19)
--- NOTE | 2019-01-19 09:39 | CT Scan Report ---
CT abd pelvis oral and IV con CLINICAL HISTORY: 63 years-old Female presenting with upper abd pain, elevated WBC. TECHNIQUE: Multidetector CT of the abdomen and pelvis was performed after the administration of oral and intravenous contrast. IV contrast: 92 mL of Optiray 320. One or more dose lowering techniques wer e used consistent with the principles of ALARA (as low as reasonably achievable), including automatic exposure control, mA or kV adjustment to individual patient size, and/or use of iterative reconstruc tion. COMPARISON: 03/11/2018. CT DOSE (mGy.cm): The estimated cumulative dose is 1059.46 mGy.cm. 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 Lung bases: Normal heart size. Mitral annular calcification. No pericardial or pleural effusion. Exte nsive dependent bandlike opacities likely atelectasis. Liver: Normal morphology apart from mild enlargement. The liver measures 19.3 cm in maximal sagittal dimension. Density suggestive of hepatic steatosis. Vague lesion may be present at the inferior aspec t of the left hepatic lobe in the medial segment (series 3 image 131), possibly hemangioma but unchan ged from prior. Patent hepatic vasculature. Biliary: No intrahepatic or extrahepatic biliary ductal dilatation. Normal gallbladder. Pancreas: Mild parenchymal atrophy. Spleen: Normal. Adrenal glands: 1.1 cm nodule in the left adrenal gland unchanged from prior. This is indeterminate t roseanna its stability suggests a benign adenoma. Right adrenal gland normal. Kidneys and ureters: Well-defined hypodense lesion at the upper pole the right kidney likely cyst. No nephrolithiasis or hydronephrosis. Ureters nondistended. Bladder: Normal. Pelvic organs: Uterus and ovaries normal. Bowel: Infiltrated inflamed fat along the course of the mid sigmoid colon (series 3 image 355). Adjac ent peritoneal thickening and possible adhesions to regional small bowel (series 3 image 350). Mild w all thickening of small bowel in the distal ileum, which is also distended. Oral contrast has not yet transited to the terminal ileum. Abnormal small bowel is located in the right lower quadrant and has a smooth upstream transition to a normal caliber. A focal downstream transition point is suspected i n the right lower quadrant (series 3 image 366). Oral contrast transits beyond this point. The append ix is normal. Peritoneal cavity: Trace interloop fluid within the mesentery of the right lower quadrant small bowel . There is also trace free fluid elsewhere in the right lower quadrant and pelvis. No free intraperit fregoso gas. Lymph nodes: No enlarged lymph nodes in the abdomen or pelvis. Vasculature: Aorta and IVC patent and normal in caliber. Abdominal wall: Diastasis of the rectus abdominis in the periumbilical region. Musculoskeletal: Degenerative changes of the spine. IMPRESSION: 1. Abnormally distended and mildly inflamed appearing distal ileum in the right lower quadrant. A pa rtial low-grade bowel obstruction is suspected at this site, presumably from adhesions or an inflamma tory stenosis. The etiology of the apparent inflammation is not clear. Ischemia is felt to be unlikel y. Associated ascites further suggests inflammation. No evidence of perforation. 2. Focally infiltrated fat in the pelvis associated with the sigmoid colon and adjacent small bowel. This may represent an omental infarct. The appearance is not characteristic of an epiploic appendagi tis. 3. Hepatic steatosis. 4. Additional chronic findings as above. Electronically signed by: Angel Baeza M.D. 01/19/2019 9:37 AM
--- NOTE | 2019-01-19 11:58 | History & Physical Report ---
Date of Service January 19, 2019 Assessment & Plan (1) Epigastric abdominal pain: 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 Gen surg, GI c/s pending NPO Morphine, zofran Possibly worsened with GERD sx (2) SBO (small bowel obstruction): Noted on CT AP Monitor Possible adhesion noted, however pt has no hx of OR As above (3) Abnormal urine: + leuk est, neg nitrite No UTI sx Cx pending Monitor off abx for now (4) Hypokalemia: Replace and monitor (5) Hyperlipidemia: Holding home meds (6) Hypertension: PRN vasotec (7) Depression: continue home meds (8) GERD (gastroesophageal reflux disease): Unable to order protonix due to back order Trial of pepcid (9) DVT prophylaxis: SCDs in case of possible OR History of Present Illness Primary Care Provider: Leonela Romo MD 63 y/o F c/o abd pain. Pt states her first episodes of abd pain were last March. She was hospitalized x2 for SBO that resolved spontaneously. She was doing quite well since that time without any pain or other GI sx. About 2-3 weeks ago, this pain returned. She states it was her entire abd. She had nausea w/o emesis. She was bloated. Pt was seen by Dr. Mike who did a c-scope last week. She reports it was neg. He did tell her to start miralax at that time, which she has been doing. Her sx resolved s/p c-scope, however a few days later, she noted that "it was building". Pt was having intermittent nausea and bloating again. He would have occasional epigastric pain, but not the full abd pain that she had been having prior. She states that yesterday her pain and nausea were much worse. She ate throughout the day and it continued to worsen. She states that she felt her worse s/p dinner. Pt has hx of GERD and hiatal hernia. She states that she does not usually have heartburn sx as long as she takes her medication. She states that yesterday and today she had very intense reflux. She tried to "sleep it off" but her sx continued to worsen so she came to the ED for evaluation. Pt was given zofran and dilaudid in the ED. She denies current abd pain. "I feel great, like I could dance a jig right now." By the end of our conversation, pt states she is becoming nauseated again, but not like prior. Pt denies fever, SOB, chest pain, LE pain or swelling. She has continued to have bowel movements and pass gas over the course of this episode. Denies prior surgical hx. Allergies Allergy/AdvReac Type Severity Reaction Status Date / Time Penicillins Allergy Mild REDNESS ON Verified 01/19/19 06:51 ARMS/LEGS lisinopril AdvReac Unknown Cough Verified 01/19/19 06:51 Home Medications Home Medications Medication Instructions Recorded Confirmed Type calcium carbonate-vitamin D3 1 tab PO QAM 06/26/18 01/19/19 History [Calcium 500 + D] chlorthalidone 25 mg PO QAM 06/26/18 01/19/19 History citalopram 20 mg PO QAM 06/26/18 01/19/19 History omeprazole 20 mg PO QAM 06/26/18 01/19/19 History potassium chloride 10 meq PO QPM 06/26/18 01/19/19 History simvastatin 10 mg PO HS 06/26/18 01/19/19 History cholecalciferol (vitamin D3) 5,000 unit PO QAM 01/05/19 01/19/19 History [Vitamin D3] dicyclomine 10 mg PO TID PRN 01/19/19 01/19/19 History Past Med/Surg History Medical History Cervical stenosis of spinal canal Hyperlipidemia Hypertension Depression GERD (gastroesophageal reflux disease) Osteoarthritis Cervical radiculopathy Hiatal hernia History of claustrophobia Osteoarthritis Small bowel obstruction Surgical History History of tooth extraction History of parathyroidectomy PARTIAL History of colonoscopy History of repair of rotator cuff RT Fusion of spine CERVICAL Social History Preferred Language: Lao Communication Ability: Effective Beliefs That Will Affect Care: None Current Living Situation: Spouse and Family Feels Safe at Home: Yes Smoking Status: Never smoker Second Hand Exposure: No Hx Alcohol Use: No Hx Substance Use: No Review of Systems Review of Systems: Pertinent positives and negatives reviewed in HPI--all others negative Physical Exam Constitutional: WD/WN, vitals as above Eyes: normal visual bowman by confrontation and + anicteric sclerae Neck: normal visual inspection and trachea midline Respiratory: normal respiratory effort, lungs clear to auscultation Cardiovascular: Rate/Rhythm: regular rate and regular rhythm Gastrointestinal (Abdomen): Inspection/Auscultation: + abdomen distended Percussion/Palpation: + abdomen tender (epigastric only) and abdomen soft Musculoskeletal: Head/Neck/Chest: normocephalic and head atraumatic negative for edema, peripheral pulses intact Skin: no rashes, warm and dry Neurologic: awake; not confused Speech / Cognition: normal speech Psychiatric: A+Ox3, euthymic affect Results & Data Vital Signs (Past 12 Hours) Vital Signs Temp Pulse Pulse Resp BP BP Pulse Ox 01/19/19 10:31 138/77 01/19/19 09:25 76 20 97 01/19/19 07:02 77 18 177/90 H 94 01/19/19 06:05 36.6 C 91 H 20 115/76 94 Diagnostic Findings CTAP: 1. Abnormally distended and mildly inflamed appearing distal ileum in the right lower quadrant. A partial low-grade bowel obstruction is suspected at this site, presumably from adhesions or an inflammatory stenosis. The etiology of the apparent inflammation is not clear THOUGH MAY POTENTIALLY BE SECONDARY TO IMPRESSION #2. Ischemia AND INFECTION ARE felt to be unlikely. Associated ascites further suggests inflammation. No evidence of perforation. 2. Focally infiltrated fat in the pelvis associated with the sigmoid colon and adjacent small bowel. This may represent an omental infarct. The appearance is not characteristic of an epiploic appendagitis. 3. Hepatic steatosis. Code Status & VTE Plan Code Status Full code VTE Prophylaxis Plan VTE Prophylaxis will be ordered: Yes
[2019-01-19] MEDS ORDERED: MAGNESIUM HYDROXIDE SUSP 30 ML UDC PO PRN (13:53)
[2019-01-19] MEDS ORDERED: MoRPHine SULFATE 2 MG/ML CARP IV PRN (13:53)
[2019-01-19] MEDS ORDERED: ACETAMINOPHEN 325 MG TAB PO PRN (13:53)
[2019-01-19] MEDS ORDERED: POTASSIUM ACETATE 10 MEQ in 0.9 % SODIUM CHLORIDE 100 ML IV STA (13:53)
[2019-01-19] MEDS ORDERED: ONDANSETRON INJ 2 MG/ML 2 ML VIAL IV PRN (13:53)
[2019-01-19] MEDS: D5W AND 1/2NSS + 20MEQ KCL 20 MEQ/1,000 ML BAG IV SCH ×2 (14:51→23:58)
--- NOTE | 2019-01-19 15:14 | Surgery Consultation ---
Date of Consultation January 19, 2019 pt is a 63 year-old female who was admitted to Hospital for abdominal pain, pt has been abdominal pain since last March, She was hospitalized x2 for SBO that resolved spontaneously. She was doing quite well since that time without any pain or other GI sx. About 2-3 weeks ago, this pain returned. She states it was her entire abd. She had nausea w/o emesis. She was bloated. Pt was seen by Dr. Mike who did a c-scope last week. She reports it was neg. He did tell her to start miralax at that time, which she has been doing. Her sx resolved s/p c- scope, however a few days later, she noted that "it was building". Pt was having intermittent nausea and bloating again. He would have occasional epigastric pain, but not the full abd pain that she had been having prior. She states that yesterday her pain and nausea were much worse. She ate throughout the day and it continued to worsen. She states that she felt her worse s/p dinner. Pt has hx of GERD and hiatal hernia. She states that she does not usually have heartburn sx as long as she takes her medication. She states that yesterday and today she had very intense reflux. She tried to "sleep it off" but her sx continued to worsen so she came to the ED for evaluation. Pt denies fever, SOB, chest pain, LE pain or swelling.last BM today, no diarrhea. I reviewed pt's H/P with pt, now pt has no abdominal pain, no nausea, no vomiting, Assessment & Plan (1) Epigastric abdominal pain: pt is a 63 year-old female who was admitted to hospital for abdominal pain, CT scan possible partial SBO, and Focally infiltrated fat in the pelvis associated with the sigmoid colon and adjacent small bowel. This may represent an omental infarct. IMP: partial SBO, focally omental fat infarct pt has no abdominal pain now, Plan, no surgical indication now, conservative treatment NPO, IV fluid, control pain, lovenox 30 mg SQ q24h repeat lab sin am, add on lactate acid will F/U History of Present Illness Attending Physician: Mimi Machado, Allergies Allergy/AdvReac Type Severity Reaction Status Date / Time Penicillins Allergy Mild REDNESS ON Verified 01/19/19 06:51 ARMS/LEGS lisinopril AdvReac Unknown Cough Verified 01/19/19 06:51 Home Medications Home Medications Medication Instructions Recorded Confirmed Type calcium carbonate-vitamin D3 1 tab PO QAM 06/26/18 01/19/19 History [Calcium 500 + D] chlorthalidone 25 mg PO QAM 06/26/18 01/19/19 History citalopram 20 mg PO QAM 06/26/18 01/19/19 History omeprazole 20 mg PO QAM 06/26/18 01/19/19 History potassium chloride 10 meq PO QPM 06/26/18 01/19/19 History simvastatin 10 mg PO HS 06/26/18 01/19/19 History cholecalciferol (vitamin D3) 5,000 unit PO QAM 01/05/19 01/19/19 History [Vitamin D3] dicyclomine 10 mg PO TID PRN 01/19/19 01/19/19 History Patient History Medical History Cervical stenosis of spinal canal Hyperlipidemia Hypertension Depression GERD (gastroesophageal reflux disease) Osteoarthritis Cervical radiculopathy Hiatal hernia History of claustrophobia Osteoarthritis Small bowel obstruction Surgical History History of tooth extraction History of parathyroidectomy PARTIAL History of colonoscopy History of repair of rotator cuff RT Fusion of spine CERVICAL Social History Preferred Language: Kazakh Communication Ability: Effective Histotechnologist Supervisor Required: No Beliefs That Will Affect Care: None Current Living Situation: Spouse Other Information That Helps Us Care for You: No Feels Safe at Home: Yes Safety Concerns: Feels Safe At This Time Smoking Status: Never smoker Do You Dip or Chew Tobacco: No Second Hand Exposure: No Tobacco Cessation Education Requested by Patient: No Hx Alcohol Use: No Hx Substance Use: No Review of Systems Constitutional: as per Subjective / HPI Ear, Nose, Mouth, Throat: as per Subjective / HPI Respiratory: as per Subjective / HPI Cardiovascular: Additional Comments: HTN, hyperlipidemia Gastrointestinal: + abdominal pain, + bloating and + nausea Genitourinary: as per Subjective / HPI Musculoskeletal: as per Subjective / HPI Neurologic: as per Subjective / HPI Psychiatric: as per Subjective / HPI depression Endocrine: history of parathyroidectomy Hematologic / Lymphatic: as per Subjective / HPI Physical Exam Constitutional: WD/WN, vitals as above well developed and well nourished ENMT: external ear and nose normal, oropharynx normal Neck: trachea midline, no thyromegaly Respiratory: normal respiratory effort, lungs clear to auscultation normal respiratory effort Cardiovascular: RRR, no murmur, no edema Rate/Rhythm: regular rate and regular rhythm Heart Sounds: normal S1 and normal S2 Gastrointestinal (Abdomen): Percussion/Palpation: abdomen soft no tenderness, no distend, BS + Neurologic: patellar DTR's 2+ bilat, sensation intact Psychiatric: A+Ox3, euthymic affect Orientation: alert and oriented x 3 Lymphatic: no cervical or axillary lymphadenopathy Results & Data Vital Signs (Past 12 Hours) Vital Signs Temp Pulse Pulse Pulse Resp BP BP 01/19/19 13:30 36.6 C 79 16 150/82 H 01/19/19 13:05 86 H 127/72 01/19/19 10:31 138/77 01/19/19 09:25 76 20 01/19/19 07:02 77 18 177/90 H 01/19/19 06:05 36.6 C 91 H 20 115/76 Pulse Ox 01/19/19 13:30 96 01/19/19 13:05 01/19/19 10:31 01/19/19 09:25 97 01/19/19 07:02 94 01/19/19 06:05 94 Laboratory Results Abnormal lab results 01/19/19 01/19/19 01/19/19 Range/Units 06:16 06:16 07:03 WBC 13.05 H (4.8-10.8) K/uL Plt Count 443 H (130-400) K/uL Immature Gran # (Auto) 0.06 H (0.00-0.02) K/uL Neut # (Auto) 9.89 H (1.4-6.5) K/uL [place] # (Auto) 0.67 H (0.11-0.59) K/uL Sodium 135 L (136-145) mmol/L Potassium 3.3 L (3.5-5.1) mmol/L BUN 19 H (7-18) mg/dl Glucose 110 H (70-99) mg/dl Urine Protein Trace H (Negative) Urine Ketones Trace H (Negative) Urine Blood Trace H (Negative) Ur Leukocyte Esterase 2+ H (Negative) Urine WBC (Auto) 10-30 H (0-5) /hpf Urine RBC (Auto) 5-10 H (0-4) /hpf U Epithel Cells (Auto) >30 H (0-5) /lpf Urine Bacteria (Auto) 1+ H (Negative) Diagnostic Findings CORRECTED IMPRESSION: 1. Abnormally distended and mildly inflamed appearing distal ileum in the right lower quadrant. A partial low-grade bowel obstruction is suspected at this site, presumably from adhesions or an inflammatory stenosis. The etiology of the apparent inflammation is not clear THOUGH MAY POTENTIALLY BE SECONDARY TO IMPRESSION #2. Ischemia AND INFECTION ARE felt to be unlikely. Associated ascites further suggests inflammation. No evidence of perforation. 2. Focally infiltrated fat in the pelvis associated with the sigmoid colon and adjacent small bowel. This may represent an omental infarct. The appearance is not characteristic of an epiploic appendagitis. 3. Hepatic steatosis. 4. Additional chronic findings as above. Electronically signed by: Angel Baeza M.D. 01/19/2019 9:[address] abd pelvis oral and IV con CLINICAL HISTORY: 63 years-old Female presenting with upper abd pain, elevated WBC. TECHNIQUE: Multidetector CT of the abdomen and pelvis was performed after the administration of oral and intravenous contrast. IV contrast: 92 mL of Optiray 320. One or more dose lowering techniques were used consistent with the principles of ALARA (as low as reasonably achievable), including automatic exposure control, mA or kV adjustment to individual patient size, and/or use of iterative reconstruction. COMPARISON: 03/11/2018. CT DOSE (mGy.cm): The estimated cumulative dose is 1059.46 mGy.cm. FINDINGS: Proj Mgr topogram: Unremarkable. Lung bases: Normal heart size. Mitral annular calcification. No pericardial or pleural effusion. Extensive dependent bandlike opacities likely atelectasis. Liver: Normal morphology apart from mild enlargement. The liver measures 19.3 cm in maximal sagittal dimension. Density suggestive of hepatic steatosis. Vague lesion may be present at the inferior aspect of the left hepatic lobe in the medial segment (series 3 image 131), possibly hemangioma but unchanged from prior. Patent hepatic vasculature. Biliary: No intrahepatic or extrahepatic biliary ductal dilatation. Normal gallbladder. Pancreas: Mild parenchymal atrophy. Spleen: Normal. Adrenal glands: 1.1 cm nodule in the left adrenal gland unchanged from prior. This is indeterminate though its stability suggests a benign adenoma. Right adrenal gland normal. Kidneys and ureters: Well-defined hypodense lesion at the upper pole the right kidney likely cyst. No nephrolithiasis or hydronephrosis. Ureters nondistended. Bladder: Normal. Pelvic organs: Uterus and ovaries normal. Bowel: Infiltrated inflamed fat along the course of the mid sigmoid colon (series 3 image 355). Adjacent peritoneal thickening and possible adhesions to regional small bowel (series 3 image 350). Mild wall thickening of small bowel in the distal ileum, which is also distended. Oral contrast has not yet transited to the terminal ileum. Abnormal small bowel is located in the right lower quadrant and has a smooth upstream transition to a normal caliber. A focal downstream transition point is suspected in the right lower quadrant (series 3 image 366). Oral contrast transits beyond this point. The appendix is normal. Peritoneal cavity: Trace interloop fluid within the mesentery of the right lower quadrant small bowel. There is also trace free fluid elsewhere in the right lower quadrant and pelvis. No free intraperitoneal gas. Lymph nodes: No enlarged lymph nodes in the abdomen or pelvis. Vasculature: Aorta and IVC patent and normal in caliber. Abdominal wall: Diastasis of the rectus abdominis in the periumbilical region. Musculoskeletal: Degenerative changes of the spine. IMPRESSION: 1. Abnormally distended and mildly inflamed appearing distal ileum in the right lower quadrant. A partial low-grade bowel obstruction is suspected at this site, presumably from adhesions or an inflammatory stenosis. The etiology of the apparent inflammation is not clear. Ischemia is felt to be unlikely. Associated ascites further suggests inflammation. No evidence of perforation. 2. Focally infiltrated fat in the pelvis associated with the sigmoid colon and adjacent small bowel. This may represent an omental infarct. The appearance is not characteristic of an epiploic appendagitis. 3. Hepatic steatosis. 4. Additional chronic findings as above.
[2019-01-19] MEDS: POTASSIUM CHLORIDE / WTR 10 MEQ/100 ML PLCT IV SCH ×2 (15:53→18:03)
--- NOTE | 2019-01-19 16:26 | Consultation Report ---
DATE OF CONSULTATION: 01/19/2019 GASTROENTEROLOGY CONSULT ATTENDING PHYSICIAN: Dr. Machado. CONSULTING PHYSICIAN: Simone Mike DO REASON FOR CONSULTATION: Abdominal pain. HISTORY OF PRESENT ILLNESS: The patient is a 63-year-old female who underwent a colonoscopy on 01/12/2019 secondary to abdominal pain. The procedure was unremarkable with only finding showing small diverticula in the sigmoid colon and some nonbleeding internal hemorrhoids, though was complete to the terminal ileum without other findings. She was advised to start MiraLax therapy 17 grams daily in 8 ounce glass of water following her discharge from the endoscopy suite secondary to some complaints of constipation. She returned to the Department of Emergency Medicine on crate builder hours of 01/19/2019 with complaints of abdominal pain which initially was approximately 7/10 in intensity. She stated that it occurred following eating and had worsened, prompting evaluation in the ER. She also noted nausea and bloating, and she subsequently underwent laboratory studies including a white blood cell count of 13.05, platelet count of 443. Her liver panel was unremarkable. She did have a sodium of 135, potassium 3.3, chloride 99, bicarbonate 27, BUN 19, creatinine 1.09, and a blood glucose level of 110. CT scan of her abdomen and pelvis was reviewed with radiology, Dr. Beckham, and there was evidence of abnormally distended and mildly inflamed distal ileum in the right lower quadrant with a partial low-grade bowel obstruction. She also had focally infiltrated pelvis associated with sigmoid colon and adjacent small bowel, possibly representing an omental infarct. She did have a UA done as well, which showed 2+ leukocyte esterase, 1+ bacteria, 10-30 whites, and was seen by Dr. Kaur of surgery. At the time that I saw the patient, her pain had greatly improved. She states that it is approximately 2/10 in intensity at this time. It is located in the bilateral upper quadrants. It is worse with eating. It does improve with narcotic analgesia and with bowel rest. She does state that she is still passing brown semi-solid stools and denies any melena, hematochezia, or hematemesis. She further denies any urinary symptoms or atypical vaginal bleeding and states that she has not been seen by TIME STUDY CLERK in many years. She denies any other complaints. PAST MEDICAL HISTORY: Significant for cervical stenosis, hyperlipidemia, hypertension, depression, GERD, osteoarthritis, claustrophobia, hiatal hernia. PAST SURGICAL HISTORY: Parathyroidectomy, rotator cuff repair, tooth extraction. ALLERGIES: PENICILLINS and LISINOPRIL. MEDICATIONS: At present include Celexa 20 mg p.o. q.a.m., Lovenox 30 mg subcutaneous q.a.m., famotidine 20 mg IV daily, hydromorphone 0.5 mg IV q.15 hours p.r.n. pain, Tylenol 650 mg p.o. q.4 hours p.r.n., morphine 0.5 mg IV q.4 hours p.r.n. pain, Zofran 4 mg IV q.6 hours p.r.n. nausea, milk of magnesia 30 mL p.o. q.6 hours p.r.n. SOCIAL HISTORY: She is . She denies any tobacco, alcohol, or illicit drug use. FAMILY HISTORY: Negative for GI malignancy or inflammatory bowel disease. REVIEW OF SYSTEMS: Negative x12 system review other than pertinent positives in HPI. PHYSICAL EXAMINATION: VITAL SIGNS: Temp 36.6, pulse 79, respirations 16, blood pressure 150/82, pulse ox 96% on room air. GENERAL: She is awake, cooperative, no acute distress. HEAD: Normocephalic, atraumatic. EYES: Pupils equal, round. Extraocular muscles are intact. ENT: External evaluation of ears and nose is normal. Oropharynx is clear. NECK: Soft and supple. There is no JVD or lymphadenopathy. CHEST: Clear to auscultation bilaterally. CARDIOVASCULAR SYSTEM: Regular rate and rhythm. ABDOMEN: Soft, tender in the bilateral upper quadrants, nondistended. Positive bowel sounds. There is no hepatosplenomegaly or stigmata of chronic liver disease. EXTREMITIES: No clubbing, cyanosis, or edema. SKIN: Soft and pink. LABORATORY STUDIES AND RADIOGRAPHIC STUDIES: Reviewed in the HPI. IMPRESSION: A 63-year-old female with abdominal pain and abnormal CT imaging. PLAN: I would recommend that the patient have further testing including a lactic acid level as well as a CEA and CA-125 levels. I would recommend that she undergo repeat imaging with worsening symptoms or in approximately 2 weeks to further evaluate her symptomatology with a repeat CT scan if her symptoms are improving. The colonoscopy performed last week showed no evidence of inflammatory bowel disease. Consideration could be given to performing an upper endoscopy in the next few weeks to evaluate for upper GI symptoms. I would continue H2 receptor antagonist therapy at present. I will make further recommendations following above noted testing. Once again, thanks for allowing me to participate in the care of this patient. If you have any further questions, please do not hesitate in contacting me.
[2019-01-20 07:39] LABS: Basophils # (auto) 0.05 K/uL (0-0.2); Basophils % (auto) 0.7 %; Eosinophils # (auto) 0.17 K/uL (0-0.5); Eosinophils % (auto) 2.5 %; Hematocrit (blood only) 39.7 % (37-47); Hemoglobin 12.9 g/dL (12.0-16.0); Immature Granulocytes # (auto) 0.02 K/uL (0.00-0.02); Immature Granulocytes % (auto) 0.3 %; Lymphocytes # (auto) 2.26 K/uL (1.2-3.4); Lymphocytes % (auto) 33.5 %; Mean Corpuscular Hgb Conc 32.5 g/dL (32-36); Mean Corpuscular Volume 82.2 fL (80-100); Mean Platelet Volume 8.6 fL (7.4-10.4); Monocytes # (auto) 0.52 K/uL (0.11-0.59); Monocytes % (auto) 7.7 %; Neutrophils # (auto) 3.72 K/uL (1.4-6.5); Neutrophils % (auto) 55.3 %; Platelet Count 358 K/uL (130-400); RDW Coefficient of Variation 13.9 % (11.5-14.5); RDW Standard Deviation 41.6 fL (36.4-46.3); Red Blood Count 4.83 M/uL (4.2-5.4); White Blood Count 6.74 K/uL (4.8-10.8)
[2019-01-20 07:51] LABS: Partial Thromboplastin Ratio 1.1; Partial Thromboplastin Time 28.8 Seconds (21.0-31.0); Prothrombin Time 10.3 Seconds (9.0-12.0)
[2019-01-20] MEDS: FAMOTIDINE 20 MG in SYRINGE 3 ML IV SCH (07:55)
[2019-01-20] MEDS: CITALOPRAM 20 MG TAB PO SCH (07:55)
[2019-01-20 08:02] LABS: BUN Creatinine Ratio 10.4 (10-20); Calcium 8.8 mg/dl (8.5-10.1); Creatinine Clr Calc Pharmacy 85.7 ml/min; Est GFR (African American) 92.2; Est GFR (Non-African American) 79.6; Phosphorus 3.2 mg/dl (2.5-4.9); Potassium 3.5 mmol/L (3.5-5.1)
--- NOTE | 2019-01-20 09:33 | Surgery Progress Note ---
Date of Service doing better, no nausea, no vomiting, less abdominal pain, the pain is located radha-umbilical area, January 20, 2019 Assessment & Plan (1) Epigastric abdominal pain: pt is a 63 year-old female who was admitted to hospital for abdominal pain, CT scan possible partial SBO, and Focally infiltrated fat in the pelvis associated with the sigmoid colon and adjacent small bowel. This may represent an omental infarct. IMP: partial SBO, focally omental fat infarct pt has no abdominal pain now, Plan, no surgical indication now, conservative treatment NPO, IV fluid, control pain, lovenox 30 mg SQ q24h repeat lab sin am, add on lactate acid will F/U 01/20/2019 9:30am doing fine, no nausea, no vomiting, less abdominal pain, normal WBC clear diet today, possible D/C home today or tomorrow, if pt tolerated the diet, Physical Exam Constitutional: WD/WN, vitals as above well developed and well nourished ENMT: external ear and nose normal, oropharynx normal Neck: trachea midline, no thyromegaly Respiratory: normal respiratory effort, lungs clear to auscultation normal respiratory effort Cardiovascular: RRR, no murmur, no edema Rate/Rhythm: regular rate and regular rhythm Heart Sounds: normal S1 and normal S2 Gastrointestinal (Abdomen): Percussion/Palpation: abdomen soft umbilical hernia+ , no tenderness, no bulging now, Neurologic: patellar DTR's 2+ bilat, sensation intact Psychiatric: A+Ox3, euthymic affect Orientation: alert and oriented x 3 Lymphatic: no cervical or axillary lymphadenopathy Results & Data Vital Signs (Past 12 Hours) Vital Signs Temp Pulse Pulse Resp BP BP Pulse Ox 01/20/19 07:50 36.6 C 66 14 148/86 H 93 01/19/19 23:06 37 C 76 16 113/64 95
[2019-01-20] MEDS: ENOXAPARIN INJ 30 MG/0.3 ML SYR SQ SCH (09:35)
[2019-01-20] MEDS: D5W AND 1/2NSS + 20MEQ KCL 20 MEQ/1,000 ML BAG IV SCH ×2 (10:04→20:09)
--- NOTE | 2019-01-20 11:52 | Hospitalist Progress Note ---
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 Gen surg planning for trial of clears GI recs for f/u CTAP in 2 weeks, possible EGD Morphine, zofran Possibly worsened with GERD sx Lactic acid, CEA WNL CA-125 pending (2) SBO (small bowel obstruction): Noted on CT AP Monitor Possible adhesions noted, however pt has no hx of OR As above (3) Abnormal urine: + leuk est, neg nitrite No UTI sx Cx noted for pinpoint growth, reincubating Monitor off abx for now (4) Hypokalemia: Replace and monitor (5) Hyperlipidemia: Holding home meds (6) Hypertension: PRN vasotec (7) Depression: continue home meds (8) GERD (gastroesophageal reflux disease): Unable to order protonix due to back order Trial of pepcid (9) DVT prophylaxis: SCDs in case of possible OR Subjective Pt still with epigastric/supraumbilical abd pain, but better than yesterday. Also still with nausea, but also better. She has been tolerating ice chips. She did pass stool that was "liquid" only. Pt denies fever, SOB, chest pain, LE pain or swelling. Surgery has advanced her to clears, but she is still awaiting a tray. Review of Systems Review of Systems: Pertinent positives and negatives reviewed in HPI--all others negative Physical Exam Constitutional: WD/WN, vitals as above Eyes: normal visual bowman by confrontation and + anicteric sclerae Neck: normal visual inspection and trachea midline Respiratory: normal respiratory effort, lungs clear to auscultation Cardiovascular: Rate/Rhythm: regular rate and regular rhythm Gastrointestinal (Abdomen): Inspection/Auscultation: + abdomen distended Percussion/Palpation: + abdomen tender (epigastric only and with deep palpation- improved) and abdomen soft Musculoskeletal: Head/Neck/Chest: normocephalic and head atraumatic Skin: no rashes, warm and dry Neurologic: awake; not confused Speech / Cognition: normal speech Psychiatric: A+Ox3, euthymic affect Results & Data Vital Signs (Past 12 Hours) Vital Signs Temp Pulse Resp BP Pulse Ox 01/20/19 07:50 36.6 C 66 14 148/86 H 93
[2019-01-21] MEDS: D5W AND 1/2NSS + 20MEQ KCL 20 MEQ/1,000 ML BAG IV SCH ×3 (05:46→23:54)
[2019-01-21] MEDS: CITALOPRAM 20 MG TAB PO SCH (08:48)
[2019-01-21] MEDS: FAMOTIDINE 20 MG in SYRINGE 3 ML IV SCH (08:48)
[2019-01-21] MEDS: ENOXAPARIN INJ 30 MG/0.3 ML SYR SQ SCH (08:54)
--- NOTE | 2019-01-21 10:09 | Surgery Progress Note ---
Date of Service pt is doing better, less abdominal pain, no nausea, no vomiting, no diarrhea, January 21, 2019 Assessment & Plan (1) Epigastric abdominal pain: pt is a 63 year-old female who was admitted to hospital for abdominal pain, CT scan possible partial SBO, and Focally infiltrated fat in the pelvis associated with the sigmoid colon and adjacent small bowel. This may represent an omental infarct. IMP: partial SBO, focally omental fat infarct pt has no abdominal pain now, Plan, no surgical indication now, conservative treatment NPO, IV fluid, control pain, lovenox 30 mg SQ q24h repeat lab sin am, add on lactate acid will F/U 01/20/2019 9:30am doing fine, no nausea, no vomiting, less abdominal pain, normal WBC clear diet today, possible D/C home today or tomorrow, if pt tolerated the diet, 01/21/2019 10:11am pt is still have some abdominal pain, U/S study to R/O gallbladder disease pt requests to consult Dr. Gardner for further Dx and treatment, Subjective Pt still with epigastric/supraumbilical abd pain, but better than yesterday. Also still with nausea, but also better. She has been tolerating ice chips. She did pass stool that was "liquid" only. Pt denies fever, SOB, chest pain, LE pain or swelling. Surgery has advanced her to clears, but she is still awaiting a tray. Physical Exam Constitutional: WD/WN, vitals as above well developed and well nourished Neck: trachea midline, no thyromegaly Respiratory: normal respiratory effort, lungs clear to auscultation normal respiratory effort Cardiovascular: RRR, no murmur, no edema Rate/Rhythm: regular rate and regular rhythm Gastrointestinal (Abdomen): Percussion/Palpation: abdomen soft slightly tenderness at RUQ, no rebound pain, BS +, no distend Neurologic: patellar DTR's 2+ bilat, sensation intact awake Psychiatric: Orientation: alert and oriented x 3 Results & Data Vital Signs (Past 12 Hours) Vital Signs Temp Pulse Resp BP BP Pulse Ox 01/21/19 07:51 36.8 C 70 18 150/90 H 94 01/20/19 22:53 36.9 C 68 17 138/80 91
--- NOTE | 2019-01-21 15:47 | Ultrasound Report ---
ABDOMINAL ULTRASOUND, RIGHT UPPER QUADRANT HISTORY: abdominal pain, RUQ, to R/O gallbladder disease. COMPARISON: Abdominal ultrasound 03/15/2018. Abdomen and pelvis CT 01/19/2019. FINDINGS: Pancreas: The pancreatic head and tail are obscured by overlying bowel gas. The remaining portions of the pancreas are within normal limits. Liver: The liver is echogenic consistent with fatty change. Gallbladder: No gallbladder wall thickening. No gallstones. CBD: 4 mm. Right kidney: No hydronephrosis. IMPRESSION: 1. Normal gallbladder. No gallstones. 2. Hepatic steatosis. Electronically signed by: Francis Beckham M.D. 01/21/2019 3:45 PM
--- NOTE | 2019-01-21 17:06 | Hospitalist Progress Note ---
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 Gen surg recs for abd US, shows fatty liver and WNL otherwise Tolerating clears GI recs for f/u CTAP in 2 weeks, possible EGD Morphine, zofran Possibly worsened with GERD sx Lactic acid, CEA WNL CA-125 pending (2) SBO (small bowel obstruction): Noted on CT AP Monitor Possible adhesions noted, however pt has no hx of OR As above (3) Abnormal urine: + leuk est, neg nitrite No UTI sx Cx noted for pinpoint growth, reincubating Monitor off abx for now (4) Hypokalemia: Replace and monitor (5) Hyperlipidemia: Holding home meds (6) Hypertension: PRN vasotec (7) Depression: continue home meds (8) GERD (gastroesophageal reflux disease): Unable to order protonix due to back order Trial of pepcid (9) DVT prophylaxis: SCDs and ambulation Requests d/c of lovenox given her ambulation Subjective "I still do not feel right. Something is wrong in my stomach." Pt continues to have abd pain and bloating. Her nausea is better but only with the zofran use. Pt denies fever, SOB, chest pain, v/c/d, LE pain or swelling. Tolerating clears. She has been ambulating often in the halls. Review of Systems Review of Systems: Pertinent positives and negatives reviewed in HPI--all others negative Physical Exam Constitutional: WD/WN, vitals as above Eyes: normal visual bowman by confrontation and + anicteric sclerae Neck: normal visual inspection and trachea midline Respiratory: normal respiratory effort, lungs clear to auscultation Cardiovascular: Rate/Rhythm: regular rate and regular rhythm Gastrointestinal (Abdomen): Inspection/Auscultation: + abdomen distended Percussion/Palpation: + abdomen tender (epigastric only and with deep palpation- improving) and abdomen soft Musculoskeletal: Head/Neck/Chest: normocephalic and head atraumatic Skin: no rashes, warm and dry Neurologic: awake; not confused Speech / Cognition: normal speech Psychiatric: A+Ox3, euthymic affect Results & Data Vital Signs (Past 12 Hours) Vital Signs Temp Pulse Resp BP BP Pulse Ox 01/21/19 16:48 184/93 H 01/21/19 15:15 36.9 C 68 16 167/99 H 94 01/21/19 07:51 36.8 C 70 18 150/90 H 94
[2019-01-22 05:55] LABS: Hematocrit (blood only) 37.3 % (37-47); Hemoglobin 12.4 g/dL (12.0-16.0); Mean Corpuscular Hgb Conc 33.2 g/dL (32-36); Mean Corpuscular Volume 81.4 fL (80-100); Mean Platelet Volume 8.5 fL (7.4-10.4); Platelet Count 325 K/uL (130-400); RDW Coefficient of Variation 13.7 % (11.5-14.5); RDW Standard Deviation 40.9 fL (36.4-46.3); Red Blood Count 4.58 M/uL (4.2-5.4)
[2019-01-22 06:32] LABS: Creatinine Clr Calc Pharmacy 84.6 ml/min; Est GFR (African American) 90.9; Est GFR (Non-African American) 78.4
[2019-01-22] MEDS: FAMOTIDINE 20 MG in SYRINGE 3 ML IV SCH ×2 (08:25→21:11)
[2019-01-22] MEDS: CITALOPRAM 20 MG TAB PO SCH (08:25)
[2019-01-22 10:24] LABS: BUN Creatinine Ratio 6.8 (10-20); Calcium 8.9 mg/dl (8.5-10.1); Creatinine Clr Calc Pharmacy 81.6 ml/min; Est GFR (African American) 86.9; Potassium 3.9 mmol/L (3.5-5.1)
[2019-01-22] MEDS: D5W AND 1/2NSS + 20MEQ KCL 20 MEQ/1,000 ML BAG IV SCH ×3 (10:53→21:02)
--- NOTE | 2019-01-22 11:54 | Surgery Progress Note ---
Date of Service January 22, 2019 Assessment & Plan (1) SBO (small bowel obstruction): Transition zone in RLQ in March 2018, now with abnormal TI on CT. Colonoscopy last week was negative. Will check SBFT but cannot be done until tomorrow since she had breakfast. Subjective 63 y/o female admitted 3 days ago for nausea, vomiting, bloating. Has had intermittent symptoms over the past year, was admitted in 03/22 for the same. Has occasional discomfort RLQ, always tender there. At times has bloating followed by bowel urgency. Bowels have been loose during admission, has been on clear liquids. 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
--- NOTE | 2019-01-22 17:12 | Hospitalist Progress Note ---
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, with partial SBO This is a recurrence of the SBO for her Gen surg recs for abd US, shows fatty liver and WNL otherwise Tolerating clears, moving bowels -plan now for SBFT tomorrow, NPO after midnight GI recs for f/u CTAP in 2 weeks, possible EGD -Morphine, zofran Lactic acid, CEA WNL CA-125 pending but unclear why ovarian CA suspected as no findings to support this on imaging (2) SBO (small bowel obstruction): Partial SBO Noted on CT AP No h/o adhesions -SBFT in the AM as above -jacque clears, passing flatus and stool -Continue IV fluids (3) Abnormal urine: + leuk est, neg nitrite No UTI sx Urine culture with lactobacillus species, asymptomatic bacteriuria, no need for treatment (4) Hypokalemia: Resolved Follow BMP (5) Hyperlipidemia: Holding home simvastatin (6) Hypertension: Blood pressure is elevated, patient's concern -Restart home chlorthalidone (7) Depression: continue home citalopram (8) GERD (gastroesophageal reflux disease): Increase Pepcid to IV twice daily Restart home omeprazole (9) DVT prophylaxis: SCDs and ambulation Requests d/c of lovenox given her ambulation Disposition-remain on medical floor Subjective Feeling a little better. Pain is now located only in periumbilical region and no longer radiating across to the right and left mid abdomen like before. She is moving her bowels and passing flatus. Is belching. Review of Systems Review of Systems: All systems reviewed & are unremarkable except as noted in HPI & below Physical Exam Constitutional: WD/WN, vitals as above Eyes: PERRL, conjunctivae normal, anicteric sclerae ENMT: external ear and nose normal, oropharynx normal Neck: trachea midline, no thyromegaly Respiratory: normal respiratory effort, lungs clear to auscultation Cardiovascular: RRR, no murmur, no edema Gastrointestinal (Abdomen): Inspection/Auscultation: abdomen normal to inspection and normal bowel sounds; abdomen not distended Percussion/Palpation: + abdomen tender (mild in periumbilical region, no guarding) and abdomen soft; no hepatosplenomegaly, no hernia, no abdominal mass and no pulsatile mass Musculoskeletal: Extremities: extremities normal to inspection; no cyanosis and no clubbing Skin: no rashes, warm and dry Neurologic: moves all extremities and awake; no focal motor deficits Psychiatric: A+Ox3, euthymic affect Results & Data Vital Signs (Past 12 Hours) Vital Signs Temp Pulse Pulse Resp BP BP Pulse Ox 01/22/19 15:18 36.8 C 70 16 151/91 H 95 01/22/19 11:29 36.4 C L 69 14 156/92 H 95 01/22/19 07:47 36.5 C 70 13 151/89 H Laboratory Results 01/22/19 01/22/19 01/22/19 Range/Units 05:39 05:36 05:36 WBC 7.40 (4.8-10.8) K/uL RBC 4.58 (4.2-5.4) M/uL Hgb 12.4 (12.0-16.0) g/dL Hct 37.3 (37-47) % MCV 81.4 (80-100) fL MCH 27.1 (25-34) pg MCHC 33.2 (32-36) g/dL RDW Std Deviation 40.9 (36.4-46.3) fL RDW Coeff of Shaq 13.7 (11.5-14.5) % Plt Count 325 (130-400) K/uL MPV 8.5 (7.4-10.4) fL Sodium 142 (136-145) mmol/L Potassium 3.9 (3.5-5.1) mmol/L Chloride 111 H (98-107) mmol/L Carbon Dioxide 26 (21-32) mmol/L Anion Gap 6.0 (3-11) BUN 6 L (7-18) mg/dl Creatinine 0.84 0.81 (0.6-1.2) mg/dl Est Cr Clr Drug Dosing 81.6 84.6 ml/min Est GFR ( Amer) 86.9 90.9 Est GFR (Non-Af Amer) 75.0 78.4 BUN/Creatinine Ratio 6.8 L (10-20) Glucose 87 (70-99) mg/dl Calcium 8.9 (8.5-10.1) mg/dl
[2019-01-22] MEDS ORDERED: POTASSIUM CHLORIDE 10 MEQ TABCR PO SCH (21:00)
[2019-01-22] MEDS ORDERED: SIMVASTATIN 10 MG TAB PO SCH (21:00)
[2019-01-23] MEDS: D5W AND 1/2NSS + 20MEQ KCL 20 MEQ/1,000 ML BAG IV SCH (06:15)
--- NOTE | 2019-01-23 06:45 | Surgery Progress Note ---
Date of Service up and about no abd pain but she states has not eaten anything January 23, 2019 Assessment & Plan (1) SBO (small bowel obstruction): 01/23/19 recurrent sharp abd pain for 2 years not associated with oral intake or activity no previous abd surgery will await UGI SBFT discussed with pt may need laparoscopy Transition zone in RLQ in March 2018, now with abnormal TI on CT. Colonoscopy last week was negative. Will check SBFT but cannot be done until tomorrow since she had breakfast. Subjective Feeling a little better. Pain is now located only in periumbilical region and no longer radiating across to the right and left mid abdomen like before. She is moving her bowels and passing flatus. Is belching. Review of Systems Review of Systems: up and about feels fine today no abd pain no nausea Results & Data Vital Signs (Past 12 Hours) Vital Signs Temp Pulse Resp BP Pulse Ox 01/22/19 23:12 36.7 C 65 16 129/75 96 UGI with SBFT pending
[2019-01-23 07:55] LABS: Basophils # (auto) 0.06 K/uL (0-0.2); Basophils % (auto) 0.8 %; Eosinophils # (auto) 0.18 K/uL (0-0.5); Eosinophils % (auto) 2.5 %; Hematocrit (blood only) 38.7 % (37-47); Hemoglobin 12.9 g/dL (12.0-16.0); Immature Granulocytes # (auto) 0.02 K/uL (0.00-0.02); Immature Granulocytes % (auto) 0.3 %; Lymphocytes # (auto) 2.02 K/uL (1.2-3.4); Lymphocytes % (auto) 28.3 %; Mean Corpuscular Hgb Conc 33.3 g/dL (32-36); Mean Corpuscular Volume 81.1 fL (80-100); Mean Platelet Volume 8.5 fL (7.4-10.4); Monocytes # (auto) 0.57 K/uL (0.11-0.59); Neutrophils # (auto) 4.29 K/uL (1.4-6.5); Neutrophils % (auto) 60.1 %; Platelet Count 330 K/uL (130-400); RDW Coefficient of Variation 13.7 % (11.5-14.5); RDW Standard Deviation 40.8 fL (36.4-46.3); Red Blood Count 4.77 M/uL (4.2-5.4); White Blood Count 7.14 K/uL (4.8-10.8)
[2019-01-23 08:25] LABS: BUN Creatinine Ratio 5.7 (10-20); Calcium 9.5 mg/dl (8.5-10.1); Creatinine Clr Calc Pharmacy 74.5 ml/min; Est GFR (African American) 77.9; Est GFR (Non-African American) 67.2; Potassium 3.8 mmol/L (3.5-5.1)
[2019-01-23] MEDS ORDERED: PANTOprazole 40 MG TAB PO SCH (09:00)
[2019-01-23] MEDS ORDERED: CHLORTHALIDONE 25 MG TAB PO SCH (09:00)
--- NOTE | 2019-01-23 09:10 | Fluoroscopy Report ---
FL small bowel study CLINICAL HISTORY: Small bowel obstruction. Follow-up. COMPARISON STUDY: Abdomen and pelvis CT 01/19/2019. FLUOROSCOPY TIME: 1.3 minutes. FINDINGS: 14 fluoroscopic spot and overhead images were obtained. The patient swallowed barium withou t difficulty. Contrast reached the cecum at 20 minutes. There are few jejunal diverticula. The small bowel is normal in course and caliber. No evidence for bowel obstruction. The terminal ileum is osmin lly distensible. The appendix is normal in caliber. IMPRESSION: 1. No evidence for small bowel obstruction. 2. A few jejunal diverticula. Electronically signed by: Francis Beckham M.D. 01/23/2019 9:08 AM
[2019-01-23] MEDS: CITALOPRAM 20 MG TAB PO SCH (09:46)
[2019-01-23] MEDS: FAMOTIDINE 20 MG in SYRINGE 3 ML IV SCH (09:47)
--- NOTE | 2019-01-23 13:16 | Surgery Progress Note ---
Date of Service January 23, 2019 Assessment & Plan (1) SBO (small bowel obstruction): Patient completely asymptomatic. UGI SBFT reviewed with Radiology. Diverticula as possible source of abdominal pain (?) Recommendations- if patient has this abdominal pain again will consider laparoscopy. Ok for discharge from surgical perspective. Discharge per primary service. Return precautions reviewed with patient. Subjective Patient sitting up at side of bed- denies abdominal pain. No new concerns or complaints. Results & Data Vital Signs (Past 12 Hours) Vital Signs Temp Pulse Resp BP Pulse Ox 01/23/19 07:08 36.8 C 65 20 156/88 H 97
--- NOTE | 2019-01-23 15:20 | Discharge Summary ---
Date of Service January 23, 2019 Admission HPI Per Admitting Provider 63 y/o F c/o abd pain. Pt states her first episodes of abd pain were last March. She was hospitalized x2 for SBO that resolved spontaneously. She was doing quite well since that time without any pain or other GI sx. About 2-3 weeks ago, this pain returned. She states it was her entire abd. She had nausea w/o emesis. She was bloated. Pt was seen by Dr. Mike who did a c-scope last week. She reports it was neg. He did tell her to start miralax at that time, which she has been doing. Her sx resolved s/p c-scope, however a few days later, she noted that "it was building". Pt was having intermittent nausea and bloating again. He would have occasional epigastric pain, but not the full abd pain that she had been having prior. She states that yesterday her pain and nausea were much worse. She ate throughout the day and it continued to worsen. She states that she felt her worse s/p dinner. Pt has hx of GERD and hiatal hernia. She states that she does not usually have heartburn sx as long as she takes her medication. She states that yesterday and today she had very intense reflux. She tried to "sleep it off" but her sx continued to worsen so she came to the ED for evaluation. Pt was given zofran and dilaudid in the ED. She denies current abd pain. "I feel great, like I could dance a jig right now." By the end of our conversation, pt states she is becoming nauseated again, but not like prior. Pt denies fever, SOB, chest pain, LE pain or swelling. She has continued to have bowel movements and pass gas over the course of this episode. Denies prior surgical hx. Principal Diagnosis Partial SBO, Abdominal pain Discharge Exam Constitutional WD/WN, vitals as above Eyes PERRL, conjunctivae normal, anicteric sclerae Neck trachea midline, no thyromegaly Respiratory normal respiratory effort, lungs clear to auscultation Cardiovascular RRR, no murmur, no edema Gastrointestinal (Abdomen) Inspection/Auscultation: abdomen normal to inspection and normal bowel sounds; abdomen not distended Percussion/Palpation: abdomen soft; abdomen nontender, no hepatosplenomegaly, no hernia, no abdominal mass and no pulsatile mass Musculoskeletal Extremities: extremities normal to inspection; no cyanosis and no clubbing Skin no rashes, warm and dry Neurologic moves all extremities and awake; no focal motor deficits Psychiatric A+Ox3, euthymic affect Discharge Data Allergies Allergy/AdvReac Type Severity Reaction Status Date / Time Penicillins Allergy Mild REDNESS ON Verified 01/19/19 06:51 ARMS/LEGS lisinopril AdvReac Unknown Cough Verified 01/19/19 06:51 Consultations Gastroenterology General Surgery Ordered Studies 01/19/19 06:53 CT abd pelvis oral and IV con Stat 01/21/19 10:10 US abdomen limited Routine 01/23/19 08:15 FL small bowel study Routine Hospital Course (1) Epigastric abdominal pain: 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, with partial SBO at terminal ileum with possible inflammatory stricture This is a recurrence of the SBO for her with the last time being in 03/2018, treated conservatively Abd US, shows fatty liver and WNL otherwise Had colonoscopy that was fairly unremarkable on 01/12 SBFT showed jejunal diverticuli but no obstruction and nothing else abnormal Lactic acid, CEA WNL CA-125 pending but unclear why ovarian CA suspected as no findings to support this on imaging Pain resolved and jacque diet with minimal nausea, passing stool at the time of discharge Surgery consulted and think possibility the jejunal diverticuli could be causing the issue but hard to say. Decided no surgery for now but if has another recurrence in the future, would want to perform exploratory laparoscopy with possible small bowel resection. GI consulted and recommended possible EGD as an outpt if symptoms persist , as well as a repeat CT abd/pel in 2 weeks. Advised patient to f/u with GI Only needs to f/u with Surgery prn (2) SBO (small bowel obstruction): Partial SBO Noted on CT AP No h/o adhesions but adhesions were noted between small bowel and left colon on imaging plan as above-now resolved after treatment with bowel rest initially and IVFs, pain control (3) Abnormal urine: + leuk est, neg nitrite No UTI sx Urine culture with lactobacillus species, asymptomatic bacteriuria, no need for treatment (4) Hypokalemia: Resolved (5) Hyperlipidemia: -continue simvastatin (6) Hypertension: -continue chlorthalidone (7) Depression: continue home citalopram (8) GERD (gastroesophageal reflux disease): -continue omeprazole -was also treated with IV Pepcid while inpatient (9) Fatty liver: with mild hepatomegaly on CT -needs healthy diet and weight loss encouraged as outpt -should follow LFTs as outpt (10) History of parathyroidectomy: continues on Vit D and calcium supplementation (11) DVT prophylaxis: SCDs and ambulation Pt refused Lovenox during hospitalization Disposition-stable for dc to home Total Time Total Time Spent Total Time Spent (In Minutes): >30 min Total Time Includes: Examination of the Patient, Discharge Planning, Medication Reconciliation and Communication With Other Providers (Surgery PA) Discharge Plan Discharge Items Patient Disposition: Home - Self-Care Reason For Visit: ABDOMINAL PAIN Discharge Diagnosis: Partial small bowel obstruction, abdominal pain Condition: Good Discharge Goals: Decrease discomfort, Diagnostic testing, Improve disease control, Learn about illness and Therapeutic intervention Activity: Resume your previous activity Lifting: Gradually increase as tolerated Bathing: No limitations Exercise/Sports: Gradually increase as tolerated Driving/Machine Use: No limitations Non-emergency contact: Primary Care Provider and Surgeon Call non-emergency contact if: you have any medication questions, your symptoms worsen, your pain is not controlled, your pain is worsening, your pain is unusual for you, your pain is concerning for you and your temperature is above 100.5 Follow-up/Referrals: Mauri Marquez MD [Surgeon] - (Follow-up with Dr. Marquez as needed. ) Leonela Romo MD [Primary Care Provider] - 01/26/19 10:00 am (Please, follow up at [facility] with Dr. Romo on TuesdayJanuary 26 at 10:00 am. *If you need to change this appointment, call the office at [phone].) Diet: Low Fiber Diet Comment: low fiber x 2 weeks and then gradually add fiber back into your diet Addtl Provider Instructions: You were admitted with abdominal pain and had a partial small bowel obstruction. This may have been due to a diverticulum in your small intestine seen on an xray test. You had nothing else concerning seen though and your symptoms improved. If your symptoms return, it is recommended at that time that you have a surgery to remove a portion of your small bowel to see if that improves your symptoms. Please follow up with your PCP as scheduled for you. Prescriptions: Continued simvastatin 10 mg Tablet 10 mg PO HS RF: 0 potassium chloride 10 mEq Tablet Extended Release 10 meq PO QPM RF: 0 chlorthalidone 25 mg Tablet 25 mg PO QAM RF: 0 calcium carbonate-vitamin D3 [Calcium 500 + D] 500 mg(1,250mg) -200 unit Tablet 1 tab PO QAM RF: 0 omeprazole 20 mg Tablet,Delayed Release (Dr/Ec) 20 mg PO QAM RF: 0 citalopram 20 mg Tablet 20 mg PO QAM RF: 0 cholecalciferol (vitamin D3) [Vitamin D3] 5,000 unit Tablet 5,000 unit PO QAM RF: 0 Discontinued dicyclomine 10 mg capsule 10 mg PO TID PRN (Reason: stomach spasms) RF: 0 Stand-Alone Forms: Call Back Authorization, [facility] Discharge Orders: Discharge Order (Routine); Ordered 01/23/19 Ordered By: Mary Negron Admission Data Admit Date/Time: 01/19/19 11:50 Attending Provider: Mary Negron Admit Provider: Mimi Machado Primary Care Provider: Leonela Romo Other Providers: Mimi Machado ; Simone Mike ; Mauri Marquez Service: Medical Other Interventions: Discharge Summary Assessment (RN) Last Done: 01/23/19 15:02 Pending Studies at Discharge: No
== END 2019-01-23 16:01 | disposition home or self-care (01) | DRG 394 ==
LOC: ED 06:00 → SUATTDRO 11:50 → 3N 11:50

== ENCOUNTER 2023-10-28 10:45 | Inpatient (IN) ==
--- NOTE | 2023-10-28 11:27 | ED Triage Note ---
Date of Service October 28, 2023 Provider in Triage Author: Marielos Munoz History of Present Illness This patient was briefly evaluated while in triage. An abbreviated physical exam was performed. This patient is a 68-year-old Female who presents to the ED for evaluation of "severe stomach pains, vomiting." Symptoms started 2-3am. Also having lightheadedness. Pain in upper abdomen. Ate steak sandwich and jamaican fries for dinner. No history of abdominal surgery. Physical Exam VITALS: Vitals are noted on the nurse's note and reviewed by myself. GENERAL: This is a 68 year old female, in no acute distress, nondiaphoretic, well-developed well-nourished. SKIN: No obvious rashes, edema, erythema HEAD: Normocephalic atraumatic. EYES: Conjunctivae without injection, sclerae without icterus. NECK: No JVD. LUNGS: No retractions or accessory muscle use. MUSCULOSKELETAL: Normal gait. NEURO: Patient was alert and oriented to person place and time. No focal neurological deficits. Initial orders for labs and / or imaging were placed and patient was placed in the waiting area until a bed is available. Please see further documentation for the full ED course.
[2023-10-28] MEDS: ACETAMINOPHEN 1,000 MG/100 ML VIAL IV STA (11:40)
[2023-10-28] MEDS: ONDANSETRON INJ 2 MG/ML 2 ML VIAL IV STA (11:40)
[2023-10-28] MEDS: SODIUM CHLORIDE 0.9% 1,000 ML IV STA (11:44)
[2023-10-28 12:23] LABS: Basophils % (auto) 0.7 %; Eosinophils # (auto) 0.02 K/uL (0.00-0.50); Eosinophils % (auto) 0.1 %; Hematocrit (blood only) 44.8 % (37.0-47.0); Hemoglobin 14.1 g/dl (12.0-16.0); Immature Granulocytes # (auto) 0.07 K/uL (0.01-0.20); Immature Granulocytes % (auto) 0.5 %; Lymphocytes # (auto) 1.26 K/uL (1.20-3.40); Lymphocytes % (auto) 8.5 %; Mean Corpuscular Hemoglobin 23.4 pg (25.0-34.0); Mean Corpuscular Hgb Conc 31.5 g/dL (32.0-36.0); Mean Corpuscular Volume 74.3 fL (80.0-100.0); Mean Platelet Volume 9.1 fL (9.4-12.4); Monocytes # (auto) 0.74 K/uL (0.11-0.59); Neutrophils # (auto) 12.68 K/uL (1.40-6.50); Neutrophils % (auto) 85.2 %; Platelet Count 579 K/uL (130-400); RDW Coefficient of Variation 14.2 % (11.5-14.5); RDW Standard Deviation 37.3 fL (36.4-46.3); Red Blood Count 6.03 M/uL (4.20-5.40); White Blood Count 14.87 K/ul (4.8-10.8)
[2023-10-28 12:48] LABS: Albumin Globulin Ratio 1.4 (0.9-2); Albumin Level 4.6 gm/dl (3.4-5.0); BUN Creatinine Ratio 17.5 (10-20); Bilirubin,Total 0.7 mg/dl (0.2-1.0); Calcium 10.3 mg/dl (8.6-10.3); Creatinine Clr Calc Pharmacy 64.4 ml/min; Est GFR (African American) 65.6 ml/min; Est GFR (Non-African American) 56.6 ml/min; Globulin 3.2 gm/dl (2.5-4.0); Potassium 3.1 mmol/L (3.5-5.1); Total Protein 7.8 gm/dl (6.0-8.3)
[2023-10-28] MEDS: OPTIRAY 320 500ml IV ONE (13:04)
--- NOTE | 2023-10-28 13:35 | CT Scan Report ---
ABDOMEN AND PELVIS CT WITH IV CONTRAST CT DOSE: 1387.67 mGy.cm HISTORY: Acute generalized abdominal pain with nausea and vomiting abdominal pain, N/V TECHNIQUE: Multiaxial CT images of the abdomen and pelvis were performed following the IV administrat ion of 94 cc of Optiray, A dose lowering technique was utilized adhering to the principles of ALARA. COMPARISON STUDY: CT 08/07/2019 FINDINGS: Clear lung bases with minimal bibasilar atelectasis. No free air. Unremarkable spleen, panc reas and right adrenal gland. Slightly enlarged with a 1.8 cm left adrenal lesion previously diagnose d as an adenoma, now measuring 1.8 cm. Hepatic steatosis. Unremarkable gallbladder. There is patency of the hepatic and portal veins. Unremarkable kidneys. 10 mm cyst of the superior pole right kidney. No hydronephrosis. Decompressed u rinary bladder with mild wall thickening. Unremarkable appearance of the uterus and adnexa. Atheroscl erosis of the aorta without aneurysm. No pathologically enlarged lymph nodes identified. Colonic diverticulosis. Trace pelvic ascites. Small bowel obstruction involving loops of ileum within the central and lower abdomen and pelvis with dilated loops measuring up to 3.8 cm on image 277 seri es 3 just proximal to a transition point on image 309 within the right paracentral pelvis. There is a djacent decompressed loop of ileum demonstrating circumferential wall thickening on image 300. Normal appendix. Tiny fat filled umbilical hernia. No acute fracture. IMPRESSION: 1. High-grade small bowel obstruction with transition point within the right paracentral lower pelvis , possibly on the basis of adhesions. 2. No pneumoperitoneum. 3. Small volume of ascites with interloop edema. 4. Normal appendix. ACT 112: Negative or not required by law. The above report was generated using voice recognition software. It may contain grammatical, syntax o r spelling errors. Electronically signed by: Toy Nunn M.D. 10/28/2023 1:33 PM
--- NOTE | 2023-10-28 14:17 | Emergency Department Note ---
Impression & Plan Small bowel obstruction, Vomiting ED Provider Note NAME: CB MANLEY AGE: 68 SEX: F : 1955 ARRIVES VIA: Walk-In INFORMANT: Patient, ED PROVIDER(S): Sander Pierson DO CHIEF COMPLAINT: Abdominal pain HPI: The patient is a 68-year-old female who presented to the emergency department for abdominal pain nausea vomiting. The patient was seen in triage and had labs and x-rays ordered prior to my evaluation. The patient has a history of partial small bowel obstruction in 2019. She has never had any problems since. She has no previous surgeries on her abdomen. She denies having any chest pain or difficulty breathing. She had significant abdominal distention as well as pain. She had an episode of emesis as well as another episode in the emergency department. She is feeling much better at this time. ROS: See above HPI for pertinent positives & negatives. A total of 10 systems reviewed and were otherwise negative. PAST MEDICAL HISTORY: See Below PAST SURGICAL HISTORY: See Below FAMILY HISTORY: See Below SOCIAL HISTORY: See Below HOME MEDICATIONS: See Below ALLERGIES: See Below VITALS: See Below PHYSICAL EXAMINATION: GENERAL: Patient is awake alert in no acute distress patient is resting comfortably and showing no signs of anxiety EYES: The conjunctivae are clear. The pupils are round and reactive. EARS, NOSE, MOUTH AND THROAT: The nose is without any evidence of any deformity. Mucous membranes are moist. Tongue is midline. NECK: The neck is nontender and supple. RESPIRATORY: Normal respiratory effort is noted there is no evidence of wheezing rhonchi or rales CARDIOVASCULAR: Regular rate and rhythm noted there no murmurs rubs or gallops normal S1 normal S2. GASTROINTESTINAL: The abdomen is soft. There is diffuse tenderness to palpation but no guarding or rigidity. MUSCULOSKELETAL/EXTREMITIES: There is no evidence of gross deformity full range of motion is noted in the hips and shoulders. SKIN: There is no obvious evidence of any rash. There are no petechiae, pallor or cyanosis noted. NEUROLOGIC: Patient is awake alert and oriented x3 MEDICAL DECISION MAKING: The patient is a 68-year-old female who presented to the emergency department for an evaluation of nausea and vomiting. The patient has a history of a partial bowel obstruction from 2019. She did have follow-up appointments with GI after that visit and no definite cause for her obstruction could be found. She has no surgical history on her abdomen but her brother has had a similar episode without having previous surgical history and had a bowel obstruction. The patient was treated with IV fluids in the emergency department. She was reevaluated multiple times. I discussed patient's laboratory and radiographic studies with her. Given her findings on CT I discussed her condition with the on-call general surgical group as well as the on-call [facility] hospitalist group. They have agreed to evaluate the patient in the emergency department for further management and disposition Triage Nursing notes reviewed. Prior medical records reviewed Vital Signs: reviewed and remarkable for no significant abnormalities Differential diagnosis: Gastroenteritis, food borne illness, infections, appendicitis, diverticulitis, inflammatory bowel disease, obstruction, GI bleed, biliary pathology, volvulus, as well as other pathologies. ER treatment provided: See below Diagnostics interpreted by me: ECG: none Cardiac Monitoring: An order was placed for continuous cardiac monitoring. The monitor shows a rate of 72 bpm with sinus rhythm. Laboratory studies: As stated above and show below. Imaging studies: See below. Radiographic imaging was reviewed by myself Consultation(s): I discussed this case with Kayli who is on for general surgery. They will evaluate the patient in the emergency department for further management. I [facility] this [facility] the patient in the emergency department Past Med/Surg History Medical History (Updated 10/28/23 @ 17:23 by Sander Pierson DO) Heart murmur COVID-19 virus infection Tear of medial meniscus of right knee Abnormal abdominal CT scan Small bowel obstruction Hiatal hernia History of claustrophobia Cervical stenosis of spinal canal Osteoarthritis Surgical History History of neck surgery Fusion of spine CERVICAL History of repair of rotator cuff RT History of colonoscopy History of parathyroidectomy PARTIAL History of tooth extraction Family History Mother Hypertension Father Hypertension Aunt Cancer Maternal Aunt, Liver CA Other COPD (chronic obstructive pulmonary disease) Coronary heart disease Depression Dyslipidemia Heart disease Denies family history of Ovarian cancer Breast cancer Colorectal cancer Social History Smoking Status: Never smoker Second Hand Exposure: No; Do You Dip or Chew Tobacco: No; Hx Alcohol Use: Yes Hx Substance Use: No Preferred Language: Tamazight Communication Ability: Effective Visual Impairment: Limited Hearing Ability: Normal Call Center Rn Required: No Beliefs That Will Affect Care: None marital status: Current Living Situation: Spouse current occupational status: retired How many Children do You have: 2 Feels Safe at Home: Yes Childhood Exposure to Second-Hand Smoke: Yes Diet: regular caffeine: Yes Dental Care, Regularly: Yes Physical Activity Frequency: Daily Seatbelt Use: always Sunscreen Use: No Assistive Devices: Glasses Allergies Allergies Allergy/AdvReac Type Severity Reaction Status Date / Time lisinopril AdvReac Unknown Cough Verified 10/28/23 14:55 Home Meds Home Medications Medication Instructions Recorded Confirmed cholecalciferol (vitamin D3) 50 2,000 units PO DAILY 03/16/19 10/28/23 mcg (2,000 unit) capsule polyethylene glycol 3350 17 17 gm PO DAILY 06/05/19 10/28/23 gram/dose oral powder (Miralax) omeprazole 40 mg capsule,delayed 40 mg PO QAM 10/28/23 10/28/23 release Previous Rx's Medication Instructions Recorded calcium carbonate 500 mg-vitamin 1 tab PO QAM #90 tabs 05/20/20 D3 5 mcg (200 unit) tablet (Calcium 500 + D) chlorthalidone 25 mg tablet 25 mg PO QAM #90 tabs 07/13/23 citalopram 20 mg tablet 20 mg PO QAM #90 tabs 07/13/23 simvastatin 10 mg tablet 10 mg PO HS #90 tabs 07/13/23 potassium chloride 10 mEq 10 meq PO TID #270 tabs 08/01/23 tablet,extended release Results & Data (ED) Vital Signs Vital Signs - 24 hr 10/28/23 11:27 10/28/23 14:20 Temperature 36.5 C Temperature Source Temporal Artery Scan Pulse Rate 82 Pulse Rate [Left Finger] 73 Respiratory Rate 16 20 Respiratory Effort / Characteristics Non-Labored Spontaneous Respiratory Depth Normal Blood Pressure 150/96 H Blood Pressure [Left Arm] 156/97 H Blood Pressure Mean 114 Blood Pressure Mean [Left Arm] 116 Blood Pressure Position [Left Arm] Sitting Pulse Oximetry 98 98 Oxygen Delivery Method Room Air Sepsis Recent Fever Within 48 Hours No Sepsis New/Unexplained Change in Mental Status No Sepsis Action Taken by Nursing No Action Required Home Medications Current Medication List: was personally reviewed by me Laboratory Data Attestation: I reviewed the patient's lab results. 10/28/23 11:49 10/28/23 11:49 Lab Results 10/28/23 Range/Units 11:49 WBC 14.87 H (4.8-10.8) K/ul RBC 6.03 H (4.20-5.40) M/uL Hgb 14.1 (12.0-16.0) g/dl Hct 44.8 (37.0-47.0) % MCV 74.3 L (80.0-100.0) fL MCH 23.4 L (25.0-34.0) pg MCHC 31.5 L (32.0-36.0) g/dL RDW Std Deviation 37.3 (36.4-46.3) fL RDW Coeff of Shaq 14.2 (11.5-14.5) % Plt Count 579 H (130-400) K/uL MPV 9.1 L (9.4-12.4) fL Immature Gran % (Auto) 0.5 % Neut % (Auto) 85.2 % Lymph % (Auto) 8.5 % [place] % (Auto) 5.0 % Eos % (Auto) 0.1 % Baso % (Auto) 0.7 % Neut # (Auto) 12.68 H (1.40-6.50) K/uL Lymph # (Auto) 1.26 (1.20-3.40) K/uL [place] # (Auto) 0.74 H (0.11-0.59) K/uL Eos # (Auto) 0.02 (0.00-0.50) K/uL Baso # (Auto) 0.10 (0.00-0.20) K/uL Immature Gran # (Auto) 0.07 (0.01-0.20) K/uL Sodium 135 L (136-145) mmol/L Potassium 3.1 L (3.5-5.1) mmol/L Chloride 96 L (98-107) mmol/L Carbon Dioxide 28 (21-32) mmol/L Anion Gap 11 (3-11) BUN 18 (6-23) mg/dl Creatinine 1.03 (0.6-1.2) mg/dl Est Cr Clr Drug Dosing 64.4 ml/min Est GFR ( Amer) 65.6 ml/min Est GFR (Non-Af Amer) 56.6 ml/min BUN/Creatinine Ratio 17.5 (10-20) Glucose 122 H (70-99(Fasting)) mg/dl Calcium 10.3 (8.6-10.3) mg/dl Magnesium 2.0 (1.7-2.4) mg/dl Total Bilirubin 0.7 (0.2-1.0) mg/dl AST 17 (13-39) U/L ALT 19 (7-52) U/L Alkaline Phosphatase 110 H (34-104) U/L Total Protein 7.8 (6.0-8.3) gm/dl Albumin 4.6 (3.4-5.0) gm/dl Globulin 3.2 (2.5-4.0) gm/dl Albumin/Globulin Ratio 1.4 (0.9-2) Lipase 10 L (11-82) U/L Administered Medications Lactated Ringer's (Lr) 1,000 mls @ 100 mls/hr IV .Q10H SERAFIN Stop: 10/29/23 20:44 Last Admin: 10/28/23 15:23 Dose: 100 mls/hr Documented By: ANU Discontinued Medications Sodium Chloride (Nss) 1,000 mls @ 999 mls/hr IV .Q1H1M STA Stop: 10/28/23 12:27 Last Admin: 10/28/23 11:44 Dose: 999 mls/hr Documented By: TANG Acetaminophen (Ofirmev) 1,000 mg in 100 mls @ 400 mls/hr IV NOW STA Stop: 10/28/23 11:41 Last Infusion: 10/28/23 15:15 Dose: Infused Documented By: Admin: 10/28/23 11:40 Dose: 400 mls/hr Documented By: TANG Potassium Chloride (K Grzegorz / Wtr) 10 meq in 100 mls @ 100 mls/hr IV ONE ONE Stop: 10/28/23 14:57 Last Admin: 10/28/23 14:41 Dose: 100 mls/hr Documented By: NORIS Pantoprazole Sodium 40 mg/ (Syringe) 10 mls @ 5 mls/min IV NOW ONE Stop: 10/28/23 15:01 Last Admin: 10/28/23 15:23 Dose: 5 mls/min Documented By: ANU Lorazepam 0.5 mg/ Syringe 0.5 mls @ 2 mls/min IV NOW STA Stop: 10/28/23 15:04 Last Admin: 10/28/23 15:23 Dose: 2 mls/min Documented By: ANU Ioversol (Optiray 320 500ml) 94 ml IV ONCE ONE Stop: 10/28/23 13:04 Last Admin: 10/28/23 13:04 Dose: 94 ml Documented By: MARIO Ondansetron HCl (Ondansetron Inj 2 Mg/Ml 2 Ml Vial) 4 mg IV NOW STA Stop: 10/28/23 11:28 Last Admin: 10/28/23 11:40 Dose: 4 mg Documented By: TANG Imaging Data Attestation: I personally reviewed and interpreted this imaging study as follows: My Impression: CT of the abdomen and pelvis was obtained in the emergency department. My interpretation is dilated loops of bowel, no free air, final report below. Radiologist's Impression: Abdomen/Pelvis CT 10/28/23 11:[address] WITH IV CONTRAST CT DOSE: 1387.67 mGy.cm HISTORY: Acute generalized abdominal pain with nausea and vomiting abdominal pain, N/V TECHNIQUE: Multiaxial CT images of the abdomen and pelvis were performed following the IV administration of 94 cc of Optiray, A dose lowering technique was utilized adhering to the principles of ALARA. COMPARISON STUDY: CT 08/07/2019 FINDINGS: Clear lung bases with minimal bibasilar atelectasis. No free air. Unremarkable spleen, pancreas and right adrenal gland. Slightly enlarged with a 1.8 cm left adrenal lesion previously diagnosed as an adenoma, now measuring 1.8 cm. Hepatic steatosis. Unremarkable gallbladder. There is patency of the hepatic and portal veins. Unremarkable kidneys. 10 mm cyst of the superior pole right kidney. No hydronephrosis. Decompressed urinary bladder with mild wall thickening. Unremarkable appearance of the uterus and adnexa. Atherosclerosis of the aorta without aneurysm. No pathologically enlarged lymph nodes identified. Colonic diverticulosis. Trace pelvic ascites. Small bowel obstruction involving loops of ileum within the central and lower abdomen and pelvis with dilated loops measuring up to 3.8 cm on image 277 series 3 just proximal to a transition point on image 309 within the right paracentral pelvis. There is adjacent decompressed loop of ileum demonstrating circumferential wall thickening on image 300. Normal appendix. Tiny fat filled umbilical hernia. No acute fracture. IMPRESSION: 1. High-grade small bowel obstruction with transition point within the right paracentral lower pelvis, possibly on the basis of adhesions. 2. No pneumoperitoneum. 3. Small volume of ascites with interloop edema. 4. Normal appendix. ACT 112: Negative or not required by law. The above report was generated using voice recognition software. It may contain grammatical, syntax or spelling errors. Electronically signed by: Toy Nunn M.D. 10/28/2023 1:33 PM Discharge Plan Visit Data Chief Complaint: Illness Stated Complaint: severe stomach pain, vomiting, lethargic, weakness ED Provider: Sander Pierson Discharge Problem: Small bowel obstruction, Vomiting Patient Disposition: Admitted As Inpatient Discharge Instructions Interventions: ED Discharge Assessment Last Done: 10/28/23 15:50 Discharge Problem: Vomiting Qualifiers: Vomiting type: unspecified Nausea presence: with nausea Qualified Code(s): R 11.2 - Nausea with vomiting, unspecified
[2023-10-28] MEDS: POTASSIUM CHLORIDE / WTR 10 MEQ/100 ML PLCT IV ONE (14:41)
--- NOTE | 2023-10-28 15:02 | Surgery Consultation ---
Date of Consultation October 28, 2023 Assessment & Plan (1) Small bowel obstruction: Patient currently has no nausea/vomiting/abdominal pain but has been mediated with antiemetics and analgesics. On Exam abdomen is mildly distended, soft , TTP in RLQ with radiating pain to umbilicus, non-rigid. Vital signs are currently stable. She has elevation of wbc at 14 along with electrolyte abnormalities. A CT scan in the ER is readin. High-grade small bowel obstruction with transition point within the right paracentral lower pelvis, possibly on the basis of adhesions. 2. No pneumoperitoneum. 3. Small volume of ascites with interloop edema. 4. Normal appendix. Place NG tube for bowel decompression Keep NPO IV Fluids for hydration Replace electrolytes IV antiemetic PRN IV antibiotics IV analgesic PRN Discussed case with on-call surgeon Dr Marquez and reviewed imaging Admit to hospitalist service and General surgery will continue to follow along closely. Supervising Physician Co-Signing Physician Notes Patient is well-known to the service we have taken care of her least twice in the past for similar presentation of small bowel obstruction on last admission approximately 2 years ago we went on to performed an upper GI with small bowel follow-through which at that time did not reveal any small bowel intraluminal pathology The patient has never had surgery but one of the previous admissions she may have had a slight enteritis and whether or not this contributed to an adhesive band formation is certainly a consideration but at this point we will continue with conservative therapy since this was a treatment that resolved her previous obstruction The patient is alert coherent NG tube in place she would like the NG tube out is draining some dark yellow nonfecal contents The oropharyngeal area is moist The abdomen is slightly distended but no localized tenderness on palpation Extremity without any pedal edema All her questions were answered History of Present Illness Reason for Consultation: High grade small bowel obstruction Attending Physician: Dr. Pierson History of Present Illness Patient is a pleasant 68 yo F with a PMH of depression, heart murmur, hypokalemia, HLD, HTN, GERD, constipation, SBO, Vit D deficiency, that presented to the [facility] ER today with c/o nausea, vomiting, chills, and abdominal pain that began last night and progressively became worse. Reports pain was a 10/10 when she came in but has no pain after medication administration. Currently has no nausea, but has been mediated with antiemetics and reports that she was vomiting prior to arrival and while in the ER. Her last bowel movement was this AM and reports that it was a normal movement for her. Past surgical history includes multiple orthopedic operations on bilateral knees, ACDF, and a parathyroidectomy for which she takes PO potassium daily for chronic hypokalemia. She denies past abdominal surgeries and use of blood thinners. Allergies Allergy/AdvReac Type Severity Reaction Status Date / Time lisinopril AdvReac Unknown Cough Verified 10/28/23 14:55 Home Medications Medication Instructions Recorded Confirmed Type cholecalciferol (vitamin D3) 50 2,000 units PO DAILY 03/16/19 10/28/23 History mcg (2,000 unit) capsule polyethylene glycol 3350 17 17 gm PO DAILY 06/05/19 10/28/23 History gram/dose oral powder (Miralax) calcium carbonate 500 mg-vitamin 1 tab PO QAM #90 tabs 05/20/20 10/28/23 Rx D3 5 mcg (200 unit) tablet (Calcium 500 + D) chlorthalidone 25 mg tablet 25 mg PO QAM #90 tabs 07/13/23 10/28/23 Rx citalopram 20 mg tablet 20 mg PO QAM #90 tabs 07/13/23 10/28/23 Rx simvastatin 10 mg tablet 10 mg PO HS #90 tabs 07/13/23 10/28/23 Rx potassium chloride 10 mEq 10 meq PO TID #270 tabs 08/01/23 10/28/23 Rx tablet,extended release omeprazole 40 mg capsule,delayed 40 mg PO QAM 10/28/23 10/28/23 History release Patient History Medical History (Updated 10/28/23 @ 17:23 by Sander Pierson DO) Heart murmur COVID-19 virus infection Tear of medial meniscus of right knee Abnormal abdominal CT scan Small bowel obstruction Hiatal hernia History of claustrophobia Cervical stenosis of spinal canal Osteoarthritis Surgical History History of neck surgery Fusion of spine CERVICAL History of repair of rotator cuff RT History of colonoscopy History of parathyroidectomy PARTIAL History of tooth extraction Family History Mother Hypertension Father Hypertension Aunt Cancer Maternal Aunt, Liver CA Other COPD (chronic obstructive pulmonary disease) Coronary heart disease Depression Dyslipidemia Heart disease Denies family history of Ovarian cancer Breast cancer Colorectal cancer Social History Smoking Status: Never smoker Second Hand Exposure: No; Do You Dip or Chew Tobacco: No; Hx Alcohol Use: No Hx Substance Use: No Preferred Language: Angolan Communication Ability: Effective Visual Impairment: Limited Hearing Ability: Normal 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 Required: No Beliefs That Will Affect Care: None marital status: Current Living Situation: Spouse and Family current occupational status: retired How many Children do You have: 2 Feels Safe at Home: Yes Childhood Exposure to Second-Hand Smoke: Yes Diet: regular caffeine: Yes Dental Care, Regularly: Yes Physical Activity Frequency: Daily Seatbelt Use: always Sunscreen Use: No Assistive Devices: Glasses Review of Systems Constitutional: + chills; no fever Respiratory: no dyspnea Cardiovascular: no chest pain Gastrointestinal: + abdominal pain, + belching, + nausea a nd + vomiting; no change in bowel habits Musculoskeletal: no muscle weakness Integumentary: no rash Psychiatric: no confusion Physical Exam Physical Exam: alert oriented, pleasant Constitutional: well developed, cooperative and comfortable; no acute distress Respiratory: normal respiratory effort and able to speak in complete sentences; no respiratory distress Cardiovascular: Rate/Rhythm: regular rate Gastrointestinal (Abdomen): Inspection/Auscultation: + abdomen distended Percussion/Palpation: + abdomen tender (TTP RLQ reports pain in umbilical area) and abdomen soft; abdomen not rigid and abdomen not firm Musculoskeletal: no cyanosis or clubbing, extremities motor strength 5/5 Skin: no rashes, warm and dry Psychiatric: A+Ox3, euthymic affect Results & Data Vital Signs (Past 12 Hours) Vital Signs Temp Pulse Resp BP Pulse Ox O2 Del Method 10/28/23 11:27 97.7 F 82 16 150/96 H 98 Room Air Diagnostic Findings [place], [place] [phone] CT Scan Report Patient: CB MANLEY Admit Date: 10/28/23 MR#: [id number] Address1: [address] [place] [address] Acct ID:[id number] Address2: Date: 1955 [facility] Zip: [place] [address] Age: 68 Location: ED Sex: F Room/Bed: Att Phy: Diagnosis: severe stomach pain, vomiting, lethargic, weakness Estella Phy: Diana Webster CRNP Service Date: 10/28/23 Jorge Phy: Interpreting Phy: Toy NunnAdmit Phy: Ordering Phy: Marielos Munoz PA-C cc: ~ ABDOMEN AND PELVIS CT WITH IV CONTRAST CT DOSE: 1387.67 mGy.cm HISTORY: Acute generalized abdominal pain with nausea and vomiting abdominal pain, N/V TECHNIQUE: Multiaxial CT images of the abdomen and pelvis were performed following the IV administration of 94 cc of Optiray, A dose lowering technique was utilized adhering to the principles of ALARA. COMPARISON STUDY: CT 08/07/2019 FINDINGS: Clear lung bases with minimal bibasilar atelectasis. No free air. Unremarkable spleen, pancreas and right adrenal gland. Slightly enlarged with a 1.8 cm left adrenal lesion previously diagnosed as an adenoma, now measuring 1.8 cm. Hepatic steatosis. Unremarkable gallbladder. There is patency of the hepatic and portal veins. Unremarkable kidneys. 10 mm cyst of the superior pole right kidney. No hydronephrosis. Decompressed urinary bladder with mild wall thickening. Unremarkable appearance of the uterus and adnexa. Atherosclerosis of the aorta without aneurysm. No pathologically enlarged lymph nodes identified. Colonic diverticulosis. Trace pelvic ascites. Small bowel obstruction involving loops of ileum within the central and lower abdomen and pelvis with dilated loops measuring up to 3.8 cm on image 277 series 3 just proximal to a transition point on image 309 within the right paracentral pelvis. There is adjacent decompressed loop of ileum demonstrating circumferential wall thickening on image 300. Normal appendix. Tiny fat filled umbilical hernia. No acute fracture. IMPRESSION: 1. High-grade small bowel obstruction with transition point within the right paracentral lower pelvis, possibly on the basis of adhesions. 2. No pneumoperitoneum. 3. Small volume of ascites with interloop edema. 4. Normal appendix. ACT 112: Negative or not required by law. The above report was generated using voice recognition software. It may contain grammatical, syntax or spelling errors. Electronically signed by: Toy Nunn M.D. 10/28/2023 1:33 PM Dictated: 10/28/23 1328 Transcribed: 10/28/23 1328 Results Complete Blood Count Results: RBC 6.03 M/uL (4.20-5.40) H 10/28/23 WBC 14.87 K/ul (4.8-10.8) H 10/28/23 Hgb 14.1 g/dl (12.0-16.0) 10/28/23 Hct 44.8 % (37.0-47.0) 10/28/23 Plt Count 579 K/uL (130-400) H 10/28/23 Results BMP Results: Sodium 135 mmol/L (136-145) L 10/28/23 Potassium 3.1 mmol/L (3.5-5.1) L 10/28/23 Chloride 100 mmol/L (98-107) 10/28/23 Carbon Dioxide 28 mmol/L (21-32) 10/28/23 Anion Gap 7 (3-11) 10/28/23 BUN 15 mg/dl (6-23) 10/28/23 Creatinine 0.90 mg/dl (0.6-1.2) 10/28/23 Glucose 103 mg/dl (70-99(Fasting)) H 10/28/23 PG Care Time/CCT Total # of Minutes Spent Total Time Spent with Patient: Total time spent is greater than 50% in coordination of care (as documented) at patient's floor/unit and/or counseling patient: Coding Level of Care Code 47089 INT INP/OBS CARE 1/40MIN Diagnoses Small bowel obstruction K56.609
--- NOTE | 2023-10-28 15:04 | History & Physical Report ---
Date of Service October 28, 2023 Assessment & Plan (1) Small bowel obstruction: Plan: -Admit ot med/tele -Currently stable with symptoms currently well-controlled -Presented to the ED with acute onset of central abd pain with non-bloody nausea and vomiting -Found to have a high grade SBO -General surgery was consulted and evaluated the patient >Will have NG tube inserted shortly >Strict NPO and bowel rest for now >General Surgery will continue to follow but no urgent needs for OR at this time -Patient has a previous hx of SBO which resolved spontaneously with bowel rest, denies a previous hx of abdominal surgery -S/P 1L NSS in the ED -Will start maintenance LR while NPO -Pain control with IV tylenol and morphine -PRN Zofran for nausea if QTc is WNL on admission ECG -BL LUIS's for DVT PPX -AM CBC, CMP, mag, PT/INR (2) Hypokalemia: Plan: -Noted to be 3.1 on arrival -This is acute on chronic as patient has a hx of hypokalemia and is normally on supplementation at home -Likely exacerbated with recurrent nausea and vomiting -ECG and mag level ordered on admission, will follow when back -S/P 10 meq IV KCL in the ED, will order an additional 3 bags on admission -Will obtain repeat BMP and mag this evening and replete as needed -Continue to monitor on tele (3) Hypertension: Plan: -Stable -Hold antihypertensives for now with NPO status (4) GERD (gastroesophageal reflux disease): Plan: -IV pantoprazole ordered while NPO (5) Depression: Plan: -Resume Citalopram when able Plan The patient was discussed with Dr. Machado at the time of the admission History of Present Illness Chief Complaint: abdominal pain Primary Care Provider: ELISE Esquivel is a 68 year old female with a PMH significant for previous SBO which resolved with bowel rest, HTN, GERD, chronic hypokalemia, and hyperlipidemia who presented to the [facility] ED on 10/28/23 with acute onset of central abdominal pain, nausea, and vomiting. She remained stable in the ED. Labs were significant for a leukocytosis of 14 with neutrophil predominance of 12, MCV of 74, MCHC of 31, platelets of 579, potassium of 3.1. CT of the abd/pelvis w/IV con was read as "1. High-grade small bowel obstruction with transition point within the right paracentral lower pelvis, possibly on the basis of adhesions. 2. No pneumoperitoneum. 3. Small volume of ascites with interloop edema. 4. Normal appendix.". Prior to admission General Surgery evaluated the patient and recommended NG tube placement and bowel rest for now. She was given 1L NSS, 10 meq IV KCL, 4 mg IV zofran, 2 mg IV morphine, and 1gm IV tylenol with improvement in her symptoms prior to admission. At the time of the exam the patient was sitting in bed in no acute distress with her sitting bedside. She was in her normal state of health last night when she went to bed. She had a steak sandwich for dinner and some peanuts for a snack. She was woken from sleep at 0400 with acute onset of central abdominal pain which was described as 10/10, sharp/stabbing. The patient did not radiate anywhere else and was associated with multiple episodes of nausea and non-bloody emesis. She is currently symptom free at the time of my exam. She did not have her am meds prior to ED arrival. She denies recent fever, chills, chest pain, SOB, cough, dysuria, hematuria, melena, diarrhea, LE swelling and recent trauma. He last BM was after ED arrival and was described as normal for her. She is a full code and would want her to make medical decisions for her if she cannot make them herself. Please refer to Dr. Machado's attestation for any changes to the treatment plan Allergies Allergy/AdvReac Type Severity Reaction Status Date / Time lisinopril AdvReac Unknown Cough Verified 10/28/23 14:55 Home Medications Medication Instructions Recorded Confirmed Type cholecalciferol (vitamin D3) 50 2,000 units PO DAILY 03/16/19 10/28/23 History mcg (2,000 unit) capsule polyethylene glycol 3350 17 17 gm PO DAILY 06/05/19 10/28/23 History gram/dose oral powder (Miralax) calcium carbonate 500 mg-vitamin 1 tab PO QAM #90 tabs 05/20/20 10/28/23 Rx D3 5 mcg (200 unit) tablet (Calcium 500 + D) chlorthalidone 25 mg tablet 25 mg PO QAM #90 tabs 07/13/23 10/28/23 Rx citalopram 20 mg tablet 20 mg PO QAM #90 tabs 07/13/23 10/28/23 Rx simvastatin 10 mg tablet 10 mg PO HS #90 tabs 07/13/23 10/28/23 Rx potassium chloride 10 mEq 10 meq PO TID #270 tabs 08/01/23 10/28/23 Rx tablet,extended release omeprazole 40 mg capsule,delayed 40 mg PO QAM 10/28/23 10/28/23 History release Past Med/Surg History Medical History (Updated 10/28/23 @ 14:53 by ELISE Ignacio) Heart murmur COVID-19 virus infection Tear of medial meniscus of right knee Abnormal abdominal CT scan Small bowel obstruction Hiatal hernia History of claustrophobia Cervical stenosis of spinal canal Osteoarthritis Surgical History History of neck surgery Fusion of spine CERVICAL History of repair of rotator cuff RT History of colonoscopy History of parathyroidectomy PARTIAL History of tooth extraction Family History Mother Hypertension Father Hypertension Aunt Cancer Maternal Aunt, Liver CA Other COPD (chronic obstructive pulmonary disease) Coronary heart disease Depression Dyslipidemia Heart disease Denies family history of Ovarian cancer Breast cancer Colorectal cancer Social History Smoking Status: Never smoker Second Hand Exposure: No; Do You Dip or Chew Tobacco: No; Hx Alcohol Use: Yes Hx Substance Use: No Preferred Language: Croatian Communication Ability: Effective Visual Impairment: Limited Hearing Ability: Normal Publicity Person Required: No Beliefs That Will Affect Care: None marital status: Current Living Situation: Spouse current occupational status: retired How many Children do You have: 2 Feels Safe at Home: Yes Childhood Exposure to Second-Hand Smoke: Yes Diet: regular caffeine: Yes Dental Care, Regularly: Yes Physical Activity Frequency: Daily Seatbelt Use: always Sunscreen Use: No Assistive Devices: Glasses Physical Exam Physical Exam: Physical Exam: General: In no acute distress, stated age, well-nourished, good hygiene HEENT: Normocephalic, atraumatic, no scleral icterus, pupils around round, symmetrical, and reactive to light, moist mucus membranes, trachea midline, no thyromegaly Chest/Pulm: No respiratory distress, symmetrical chest expansion, clear breath sounds throughout Cardiac: RRR, no murmurs noted Abdomen: Mildly distended abdomen without signs of bruising, hypoactive bowel sounds, soft, tender to palpation in the epigastric region but otherwise non- tender Musculoskeletal: Symmetrical and without signs of acute trauma, upper and lower extremities with full ROM, no atrophy, spasticity, or flaccidity Extremities: Radial, dorsalis pedis, and posterior tibial pulses are intact and symmetrical, no edema noted in the BL LE's Skin: Warm, dry, no rashes , lesions, or scars noted Neuro: Alert and oriented to person, place, month, year, and president, no focal defects, no tremors noted Psych: No acute distress, calm and cooperative during the exam Results & Data Results & Data Vital Signs (Past 12 Hours) Vital Signs Temp Pulse Resp BP Pulse Ox O2 Del Method 10/28/23 11:27 36.5 C 82 16 150/96 H 98 Room Air Laboratory Results Abnormal lab results 10/28/23 Range/Units 11:49 WBC 14.87 H (4.8-10.8) K/ul RBC 6.03 H (4.20-5.40) M/uL MCV 74.3 L (80.0-100.0) fL MCH 23.4 L (25.0-34.0) pg MCHC 31.5 L (32.0-36.0) g/dL Plt Count 579 H (130-400) K/uL MPV 9.1 L (9.4-12.4) fL Neut # (Auto) 12.68 H (1.40-6.50) K/uL Blair # (Auto) 0.74 H (0.11-0.59) K/uL Sodium 135 L (136-145) mmol/L Potassium 3.1 L (3.5-5.1) mmol/L Chloride 96 L (98-107) mmol/L Glucose 122 H (70-99(Fasting)) mg/dl Alkaline Phosphatase 110 H (34-104) U/L Lipase 10 L (11-82) U/L Diagnostic Findings Abdomen/Pelvis CT 10/28/23 11:[address] WITH IV CONTRAST CT DOSE: 1387.67 mGy.cm HISTORY: Acute generalized abdominal pain with nausea and vomiting abdominal pain, N/V TECHNIQUE: Multiaxial CT images of the abdomen and pelvis were performed following the IV administration of 94 cc of Optiray, A dose lowering technique was utilized adhering to the principles of ALARA. COMPARISON STUDY: CT 08/07/2019 FINDINGS: Clear lung bases with minimal bibasilar atelectasis. No free air. Unremarkable spleen, pancreas and right adrenal gland. Slightly enlarged with a 1.8 cm left adrenal lesion previously diagnosed as an adenoma, now measuring 1.8 cm. Hepatic steatosis. Unremarkable gallbladder. There is patency of the hepatic and portal veins. Unremarkable kidneys. 10 mm cyst of the superior pole right kidney. No hydronephrosis. Decompressed urinary bladder with mild wall thickening. Unremarkable appearance of the uterus and adnexa. Atherosclerosis of the aorta without aneurysm. No pathologically enlarged lymph nodes identified. Colonic diverticulosis. Trace pelvic ascites. Small bowel obstruction involving loops of ileum within the central and lower abdomen and pelvis with dilated loops measuring up to 3.8 cm on image 277 series 3 just proximal to a transition point on image 309 within the right paracentral pelvis. There is adjacent decompressed loop of ileum demonstrating circumferential wall thickening on image 300. Normal appendix. Tiny fat filled umbilical hernia. No acute fracture. IMPRESSION: 1. High-grade small bowel obstruction with transition point within the right paracentral lower pelvis, possibly on the basis of adhesions. 2. No pneumoperitoneum. 3. Small volume of ascites with interloop edema. 4. Normal appendix. ACT 112: Negative or not required by law. The above report was generated using voice recognition software. It may contain grammatical, syntax or spelling errors. Electronically signed by: Toy Nunn M.D. 10/28/2023 1:33 PM ECG Additional Comments: Will obtain at the time of the admission Code Status & VTE Plan Code Status Full code VTE Prophylaxis Plan VTE Prophylaxis will be ordered: Yes Supervising Physician Co-Signing Physician Notes I have personally seen, evaluated and examined the patient. I have also person ally discussed the management of the patient with the resident physician/ALIDA and I agree with the exam findings documented in the history and physical examination and the documented assessment and plan unless otherwise stated below. Brief Exam: In general pleasant 68-year-old female is alert and oriented x 3 at the time my exam. She is in no kannan acute distress but is uncomfortable with her current NG tube in place. HEENT: NG tube placed in the left nares. It is irritating to her oropharynx. She is receiving Ativan at the time my evaluation to try to help calm her. Heart: Regular rate and rhythm no murmur or ectopy or rub. Lungs: Clear bilaterally. Abdomen: Obese it is soft nontender currently I do not appreciate bowel sounds over the low intermittent suction. Extremities: Intact no peripheral cyanosis clubbing or edema. Neurologically: Alert and oriented x 3 with no focal deficit. Assessment/plan: NG tube to low intermittent suction n.p.o. consult surgery etc. all described above. Please refer to orders for further planning. PG Care Time/CCT Total # of Minutes Spent Total Time Spent with Patient: Total time spent is greater than 50% in coordination of care (as documented) at patient's floor/unit and/or counseling patient: Coding [place] [address] INT INP/OBS CARE 3/75MIN Patient Type Established Medical Decision Making High Complexity Diagnoses Small bowel obstruction K56.609 Hypokalemia E87.6 Hypertension I10 GERD (gastroesophageal reflux disease) K21.9 Depression F32.9
[2023-10-28] MEDS: PANTOprazole 40 MG in SYRINGE 0 ML IV ONE (15:23)
[2023-10-28] MEDS: LORazepam 0.5 MG in SYRINGE 0.25 ML IV STA (15:23)
[2023-10-28] MEDS: LACTATED RINGER'S 1,000 ML IV SCH (15:23)
--- NOTE | 2023-10-28 15:36 | XRay Report ---
XR chest 1V portable CLINICAL HISTORY: NG tube placement COMPARISON STUDY: CT of the abdomen and pelvis October 28, 2023. Abdominal series and chest radiogr aph March 14, 2018. FINDINGS: Tip of the nasogastric tube is within the proximal body of the stomach. The tube could be a dvanced an additional 3 cm. Postoperative findings within the spine are incidentally noted. There is no pneumothorax or pleural effusion. Pulmonary vascularity is normal. Cardiac mediastinal silhouette unremarkable. IMPRESSION: 1. Tip of nasogastric tube within the proximal body of the stomach. The tube could be advanced an add itional 3 cm. 2. No acute cardiopulmonary findings. ACT 112: Negative or not required by law. Electronically signed by: Levi Arnold M.D. 10/28/2023 3:35 PM
[2023-10-28] MEDS: ACETAMINOPHEN 1,000 MG/100 ML VIAL IV PRN (17:37)
[2023-10-28] MEDS: POTASSIUM CHLORIDE / WTR 10 MEQ/100 ML PLCT IV SCH (18:02)
[2023-10-28 18:24] LABS: BUN Creatinine Ratio 16.7 (10-20); Calcium 8.9 mg/dl (8.6-10.3); Creatinine Clr Calc Pharmacy 73.6 ml/min; Est GFR (African American) 77.2 ml/min; Est GFR (Non-African American) 66.6 ml/min; Potassium 3.1 mmol/L (3.5-5.1)
[2023-10-29 04:37] LABS: Appearance Urine Clear (Clear); Bilirubin Urine Negative (Negative); Blood Urine Negative (Negative); Color Urine Yellow; Glucose Urine UA Negative (Negative); Ketones Urine Negative (Negative); Leukocyte Esterase Urine Negative (Negative); Nitrite Urine Negative (Negative); Protein Urine Negative (Negative); Specific Gravity Urine 1.012 (1.000-1.030); Urobilinogen Urine Negative (Negative)
[2023-10-29 07:12] LABS: Basophils # (auto) 0.07 K/uL (0.00-0.20); Basophils % (auto) 0.9 %; Eosinophils # (auto) 0.13 K/uL (0.00-0.50); Eosinophils % (auto) 1.6 %; Hematocrit (blood only) 39.5 % (37.0-47.0); Hemoglobin 12.2 g/dl (12.0-16.0); Immature Granulocytes # (auto) 0.04 K/uL (0.01-0.20); Immature Granulocytes % (auto) 0.5 %; Lymphocytes # (auto) 1.69 K/uL (1.20-3.40); Lymphocytes % (auto) 20.7 %; Mean Corpuscular Hemoglobin 23.6 pg (25.0-34.0); Mean Corpuscular Hgb Conc 30.9 g/dL (32.0-36.0); Mean Corpuscular Volume 76.6 fL (80.0-100.0); Mean Platelet Volume 9.1 fL (9.4-12.4); Monocytes # (auto) 0.74 K/uL (0.11-0.59); Neutrophils # (auto) 5.51 K/uL (1.40-6.50); Neutrophils % (auto) 67.3 %; Platelet Count 453 K/uL (130-400); RDW Coefficient of Variation 14.2 % (11.5-14.5); RDW Standard Deviation 38.8 fL (36.4-46.3); Red Blood Count 5.16 M/uL (4.20-5.40); White Blood Count 8.18 K/ul (4.8-10.8)
--- NOTE | 2023-10-29 07:15 | Electrocardiogram Report ---
Test Reason : Blood Pressure : / mmHG Vent. Rate : 076 BPM Atrial Rate : 076 BPM P-R Int : 186 ms QRS Dur : 078 ms QT Int : 362 ms P-R-T Axes : 054 038 075 degrees QTc Int : 407 ms Normal sinus rhythm Nonspecific T wave abnormality Abnormal ECG When compared with ECG of 15-JAN-2022 10:55, No significant change was found Confirmed by Yobani Sorto ([id number]) on 10/29/2023 7:14:51 AM Referred By: REFERRED SELF Confirmed By:Robert Sorto
[2023-10-29 07:27] LABS: Albumin Globulin Ratio 1.4 (0.9-2); Albumin Level 3.7 gm/dl (3.4-5.0); BUN Creatinine Ratio 12.8 (10-20); Bilirubin,Total 0.6 mg/dl (0.2-1.0); Calcium 9.3 mg/dl (8.6-10.3); Creatinine Clr Calc Pharmacy 76.9 ml/min; Est GFR (African American) 81.6 ml/min; Est GFR (Non-African American) 70.4 ml/min; Globulin 2.6 gm/dl (2.5-4.0); Phosphorus 2.9 mg/dl (2.5-4.9); Potassium 2.9 mmol/L (3.5-5.1); Total Protein 6.3 gm/dl (6.0-8.3)
[2023-10-29 07:42] LABS: Prothrombin Time 10.6 Seconds (9.0-12.0)
--- NOTE | 2023-10-29 07:52 | Hospitalist Progress Note ---
Date of Service October 29, 2023 Assessment & Plan (1) Small bowel obstruction: Plan: Currently admitted w/ SBO -- w/ prior admissions for SBO however no prior hx abdominal surgery. Appears SBOs started w/ first episode in February-March 2018 w/ mid-distal ileus SBO at that time. Subsequent admissions for SBO/omental infarct. Does have hx schatzki's rings, has had EGD in past. 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 Reports acute onset central abd pain w/ n&V CTAP w/ high grade SBO w/ transition point within right paracentral lower pelvis. s/p 1L NSS in ER General surgery consulted NGT in place -- to continue for today NPO NO flatus reported, however KUB w/ improvement in SBO findings (notable to advance NGT but draining and ok to continue current placement per discussion w/ surgery) Continue LR @ 100cc/hr Pain control, antiemetics prn WBC now wnl, afebrile --> Had been given IV K replacement in the past, additional ordered on admission however K 2.9 on repeat labs --4 bags KCL ordered, added to IVF as well. Mag wnl. Will repeat labs this afternoon Lactic checked given hx omental infarction, 0.8 Added zofran as needed for nausea/vomiting DVT proph: SCDs ordered Monitor labs on repeat w/ electrolytes for this afternoon and in the morning KUB for f/u in AM ordered (2) Hypokalemia: Plan: Noted to be 3.1 on arrival , acute on chronic issue given 40meq IV on admission, repeat down to 2.9 on am labs --> ordered 4 additional bags IV K replacement, added to IVF and will monitor repeat labs this afternoon/additional replacement if needed Mag wnl 2.0 Of note, is on chlorthalidone at baseline, placed on hold given NPO status HOWEVER suspect NOT best choice for her given low K at baseline/supplementation and significant lows/hypokalemia in the past. -Renin/mynor sent out however if needing medication for diuretic effect would be better served w/ spironolactone/other and avoidance of thiazide/loop diuretics. -If needing for BP control would rec against diuretics unless needed for volume control BMP in AM (3) Hypertension: Plan: Stable at present time, 144/72 Holding home meds (see above under hyperkalemia), can add hydralazine if needed Monitor (4) GERD (gastroesophageal reflux disease): Plan: on omeprazole once daily at baseline --> continues on IV PPI push daily while NPO (5) Depression: Plan: On citalopram at baseline --> holding while npo but would resume as soon as able as patient reports significant issues when without this/crying/etc for over 2 days. currently is stable at present - hopefully if able to take some PO in am can resume (6) Microcytosis: Plan: MCV 76.6, iron panel added to AM labs. Does have elevated plt count as well, ?reactive fecal occult w/ BM for completeness Likely should have further eval of her underlying etiology for recurrent SBOs Plan continued inpatient stay, awaiting return of bowel function continue IVF/pain control/antiemetics/NGT, f/u labs &KUB in AM. appreciate recs'assistance from general surgery given patient w/ recurrent SBOs and no prior abdominal surgery and prior recs for possible ex lap for eval were discussed w/ ALIDA this morning but attempting to manage acute SBO conservatively at this time but will need ongoing f/u care Admission and Anticipated Discharge Date Admission Date: October 28, 2023 Supervising Physician Co-Signing Physician Notes The patient was not seen by me. The chart was reviewed. Case discussed with SEAN Persaud. Agree with assessment and plan Subjective Eval this morning, doing alright. Pain much improved since NGT but having irritation from the NGT and anxious to get this removed. Discussed prior admissions/SBO and no prior abdominal surgery and suspect needing further eval in future given repeated episodes. KUB w/ improvement but noting possible need to advance NGT-- messaged surgery of such given continues w/ drainage from current NGT at present. No fever/chills, chest pain, shortness of breath. No significant LE swelling. Questions/concerns addressed at this time -- of note, she does mention about her depression medication and going without. Can be ok for a day or two but by day three reports she will be crying. Hopeful continued bowel rest w/ improvement/return of bowel function and can resume her citalopram for tomorrow. Physical Exam Physical Exam: General: 68yo female resting in bed, NGT in place/output noted, NAD but uncomfortable from NGT irritation at times HEENT: NGT in place, trachea midline, mmm Resp: even/unlabored, slightly diminished in the bases, no w/c/r, on room air CV: RRR, no significant mrg, no pitting edema/calf tenderness GI: mild distension, +BS/high pitched sounds on RUQ, +BS to L side appreciated but remaining hypoactive. small umbilical hernia w/o strangulation/wamrth, +tenderness umbilical/upper abdominal bowman, no rigidity/guarding MSK/Neuro; nonfocal Psych: AOx3, cooperative with exam m and cooperative during the exam Results & Data Results & Data Vital Signs (Past 12 Hours) Vital Signs Temp Pulse Pulse Resp BP Pulse Ox O2 Del Method 10/29/23 07:33 Room Air 10/29/23 04:21 36.8 C 77 20 129/72 92 Room Air 10/29/23 00:58 Room Air 10/28/23 21:59 85 10/28/23 20:12 36.7 C 74 20 164/89 H 96 Room Air Laboratory Results 10/29/23 10/29/23 10/29/23 Range/Units 08:07 06:35 04:20 WBC 8.18 (4.8-10.8) K/ul RBC 5.16 (4.20-5.40) M/uL Hgb 12.2 (12.0-16.0) g/dl Hct 39.5 (37.0-47.0) % MCV 76.6 L (80.0-100.0) fL MCH 23.6 L (25.0-34.0) pg MCHC 30.9 L (32.0-36.0) g/dL RDW Std Deviation 38.8 (36.4-46.3) fL RDW Coeff of Shaq 14.2 (11.5-14.5) % Plt Count 453 H (130-400) K/uL MPV 9.1 L (9.4-12.4) fL Immature Gran % (Auto) 0.5 % Neut % (Auto) 67.3 % Lymph % (Auto) 20.7 % [place] % (Auto) 9.0 % Eos % (Auto) 1.6 % Baso % (Auto) 0.9 % Neut # (Auto) 5.51 (1.40-6.50) K/uL Lymph # (Auto) 1.69 (1.20-3.40) K/uL [place] # (Auto) 0.74 H (0.11-0.59) K/uL Eos # (Auto) 0.13 (0.00-0.50) K/uL Baso # (Auto) 0.07 (0.00-0.20) K/uL Immature Gran # (Auto) 0.04 (0.01-0.20) K/uL PT 10.6 (9.0-12.0) Seconds INR 1.0 (0.9-1.1) Sodium 140 (136-145) mmol/L Potassium 2.9 L (3.5-5.1) mmol/L Chloride 102 (98-107) mmol/L Carbon Dioxide 32 (21-32) mmol/L Anion Gap 6 (3-11) BUN 11 (6-23) mg/dl Creatinine 0.86 (0.6-1.2) mg/dl Est Cr Clr Drug Dosing 76.9 ml/min Est GFR ( Amer) 81.6 ml/min Est GFR (Non-Af Amer) 70.4 ml/min BUN/Creatinine Ratio 12.8 (10-20) Glucose 91 (70-99(Fasting)) mg/dl Lactate 0.8 (0.4-2.0) mmol/L Calcium 9.3 (8.6-10.3) mg/dl Phosphorus 2.9 (2.5-4.9) mg/dl Magnesium 2.0 (1.7-2.4) mg/dl Iron 39 (35-150) mcg/dl TIBC 327 (250-450) mcg/dl Unsaturated IBC 288 (155-355) mcg/dl Transferrin % Sat 12 L (15-50) % Ferritin 9.0 (8-388) ng/ml Total Bilirubin 0.6 (0.2-1.0) mg/dl AST 13 (13-39) U/L ALT 14 (7-52) U/L Alkaline Phosphatase 82 (34-104) U/L Total Protein 6.3 (6.0-8.3) gm/dl Albumin 3.7 (3.4-5.0) gm/dl Globulin 2.6 (2.5-4.0) gm/dl Albumin/Globulin Ratio 1.4 (0.9-2) Renin Activity Pending Aldosterone Pending 25-OH Vitamin D Total 43.6 (30-100) ng/ml PTH Intact 46.8 (12.0-88.0) pg/ml Urine Color Yellow Urine Appearance Clear (Clear) Urine pH 7.0 (4.5-7.5) Ur Specific [place] 1.012 (1.000-1.030) Urine Protein Negative (Negative) Urine Glucose (UA) Negative (Negative) Urine Ketones Negative (Negative) Urine Blood Negative (Negative) Urine Nitrite Negative (Negative) Urine Bilirubin Negative (Negative) Urine Urobilinogen Negative (Negative) Ur Leukocyte Esterase Negative (Negative) 10/28/23 10/28/23 Range/Units 17:59 11:49 WBC (4.8-10.8) K/ul RBC (4.20-5.40) M/uL Hgb (12.0-16.0) g/dl Hct (37.0-47.0) % MCV (80.0-100.0) fL MCH (25.0-34.0) pg MCHC (32.0-36.0) g/dL RDW Std Deviation (36.4-46.3) fL RDW Coeff of Shaq (11.5-14.5) % Plt Count (130-400) K/uL MPV (9.4-12.4) fL Immature Gran % (Auto) % Neut % (Auto) % Lymph % (Auto) % [place] % (Auto) % Eos % (Auto) % Baso % (Auto) % Neut # (Auto) (1.40-6.50) K/uL Lymph # (Auto) (1.20-3.40) K/uL [place] # (Auto) (0.11-0.59) K/uL Eos # (Auto) (0.00-0.50) K/uL Baso # (Auto) (0.00-0.20) K/uL Immature Gran # (Auto) (0.01-0.20) K/uL PT (9.0-12.0) Seconds INR (0.9-1.1) Sodium 135 L (136-145) mmol/L Potassium 3.1 L (3.5-5.1) mmol/L Chloride 100 (98-107) mmol/L Carbon Dioxide 28 (21-32) mmol/L Anion Gap 7 (3-11) BUN 15 (6-23) mg/dl Creatinine 0.90 (0.6-1.2) mg/dl Est Cr Clr Drug Dosing 73.6 ml/min Est GFR ( Amer) 77.2 ml/min Est GFR (Non-Af Amer) 66.6 ml/min BUN/Creatinine Ratio 16.7 (10-20) Glucose 103 H (70-99(Fasting)) mg/dl Lactate (0.4-2.0) mmol/L Calcium 8.9 (8.6-10.3) mg/dl Phosphorus (2.5-4.9) mg/dl Magnesium 1.8 2.0 (1.7-2.4) mg/dl Iron (35-150) mcg/dl TIBC (250-450) mcg/dl Unsaturated IBC (155-355) mcg/dl Transferrin % Sat (15-50) % Ferritin (8-388) ng/ml Total Bilirubin (0.2-1.0) mg/dl AST (13-39) U/L ALT (7-52) U/L Alkaline Phosphatase (34-104) U/L Total Protein (6.0-8.3) gm/dl Albumin (3.4-5.0) gm/dl Globulin (2.5-4.0) gm/dl Albumin/Globulin Ratio (0.9-2) Renin Activity Aldosterone 25-OH Vitamin D Total (30-100) ng/ml PTH Intact (12.0-88.0) pg/ml Urine Color Urine Appearance (Clear) Urine pH (4.5-7.5) Ur Specific [place] (1.000-1.030) Urine Protein (Negative) Urine Glucose (UA) (Negative) Urine Ketones (Negative) Urine Blood (Negative) Urine Nitrite (Negative) Urine Bilirubin (Negative) Urine Urobilinogen (Negative) Ur Leukocyte Esterase (Negative) Diagnostic Findings Chest X-Ray 10/28/23 14:49 XR chest 1V portable CLINICAL HISTORY: NG tube placement COMPARISON STUDY: CT of the abdomen and pelvis October 28, 2023. Abdominal series and chest radiograph March 14, 2018. FINDINGS: Tip of the nasogastric tube is within the proximal body of the stomach. The tube could be advanced an additional 3 cm. Postoperative findings within the spine are incidentally noted. There is no pneumothorax or pleural effusion. Pulmonary vascularity is normal. Cardiac mediastinal silhouette unremarkable. IMPRESSION: 1. Tip of nasogastric tube within the proximal body of the stomach. The tube could be advanced an additional 3 cm. 2. No acute cardiopulmonary findings. ACT 112: Negative or not required by law. Electronically signed by: Levi Arnold M.D. 10/28/2023 3:35 PM KUB X-Ray 10/29/23 07:00 KUB CLINICAL HISTORY: Small bowel obstruction. FINDINGS: An AP, portable, supine abdominal radiograph is correlated with abdominal CT dated 10/28/2023. An enteric tube is in place. The tip projects at the level of the diaphragm. There is no radiographic evidence of high-grade obstruction. No evidence of intraperitoneal free air is seen on this supine image. There are no abnormal abdominal calcifications. The skeletal structures are osteopenic and appear intact. There is moderate lumbosacral spondylosis. Sclerotic change is noted in the sacroiliac joints. IMPRESSION: 1. An enteric tube is in place. The tip projects at the level of the diaphragm and should be advanced. 2. There is no radiographic evidence of high-grade small bowel obstruction. The obstruction seen by CT is not appreciated on x-ray. Electronically signed by: Perry Bernard M.D. 10/29/2023 9:50 AM PG Care Time/CCT Total # of Minutes Spent Total Time Spent with Patient: Total time spent is greater than 50% in coordination of care (as documented) at patient's floor/unit and/or counseling patient: Coding Level of Care Code 82269 SUB INP/OBS CARE 3/50MIN Diagnoses Small bowel obstruction K56.609 Hypokalemia E87.6 Hypertension I10 GERD (gastroesophageal reflux disease) K21.9 Depression F32.9 Microcytosis R71.8
[2023-10-29] MEDS: POTASSIUM CHLORIDE 20 MEQ in LACTATED RINGER'S 1,000 ML IV SCH (08:50)
[2023-10-29] MEDS: POTASSIUM CHLORIDE / WTR 10 MEQ/100 ML PLCT IV SCH (08:50)
--- NOTE | 2023-10-29 09:49 | Surgery Progress Note ---
Date of Service October 29, 2023 Assessment & Plan (1) Small bowel obstruction: Plan: Jennifer is improved today. Denies nausea. Unfortunately, not passing flatus yet. Recommend that NG tube stays in place for today, will reassess tomorrow. Ambulation was encouraged. No plans for surgical intervention at this time. Admission and Anticipated Discharge Date Admission Date: October 28, 2023 Supervising Physician Co-Signing Physician Notes would like ng tube out no flatus or bm abd softer rec keep ng tube in for today hypokalemia being treated by med service Subjective Patient is sitting up in bed, NG tube in place. She reports that she is feeling better today. Abdominal pain, bloating, nausea are all improved. Review of Systems Constitutional: no fever and no chills Respiratory: no dyspnea Cardiovascular: no chest pain Gastrointestinal: + abdominal pain (improved since admissi on) and + belching; no nausea, no vomiting and no change in bowel habits Musculoskeletal: no muscle weakness Integumentary: no rash Psychiatric: no confusion Physical Exam Physical Exam: alert oriented, pleasant Constitutional: well developed, cooperative and comfortable; no acute distress Respiratory: normal respiratory effort and able to speak in complete sentences; no respiratory distress Cardiovascular: Rate/Rhythm: regular rate Gastrointestinal (Abdomen): Inspection/Auscultation: + abdomen distended Percussion/Palpation: + abdomen tender (TTP RLQ reports pain in umbilical area) and abdomen soft; abdomen not rigid and abdomen not firm Musculoskeletal: no cyanosis or clubbing, extremities motor strength 5/5 Skin: no rashes, warm and dry Psychiatric: A+Ox3, euthymic affect Results & Data Vital Signs (Past 12 Hours) Vital Signs Temp Pulse Pulse Resp BP Pulse Ox O2 Del Method 10/29/23 09:18 77 10/29/23 08:16 36.6 C 90 18 123/74 90 Room Air 10/29/23 07:33 Room Air 10/29/23 04:21 36.8 C 77 20 129/72 92 Room Air 10/29/23 00:58 Room Air 10/28/23 21:59 85 PG Care Time/CCT Total # of Minutes Spent Total Time Spent with Patient: Total time spent is greater than 50% in coordination of care (as documented) at patient's floor/unit and/or counseling patient: Coding Level of Care Code 59646 SUB INP/OBS CARE 1/25MIN Diagnoses Small bowel obstruction K56.606
--- NOTE | 2023-10-29 09:51 | XRay Report ---
KUB CLINICAL HISTORY: Small bowel obstruction. FINDINGS: An AP, portable, supine abdominal radiograph is correlated with abdominal CT dated 4. An enteric tube is in place. The tip projects at the level of the diaphragm. There is no radiograp hic evidence of high-grade obstruction. No evidence of intraperitoneal free air is seen on this supin e image. There are no abnormal abdominal calcifications. The skeletal structures are osteopenic and a ppear intact. There is moderate lumbosacral spondylosis. Sclerotic change is noted in the sacroiliac joints. IMPRESSION: 1. An enteric tube is in place. The tip projects at the level of the diaphragm and should be advanced . 2. There is no radiographic evidence of high-grade small bowel obstruction. The obstruction seen by C T is not appreciated on x-ray. Electronically signed by: Perry Bernard M.D. 10/29/2023 9:50 AM
[2023-10-29] MEDS: PANTOprazole 40 MG in SYRINGE 0 ML IV SCH (12:19)
[2023-10-29] MEDS ORDERED: ONDANSETRON INJ 2 MG/ML 2 ML VIAL IV PRN (14:04)
[2023-10-29] MEDS: MoRPHine SULFATE 2 MG/ML CARP IV PRN (16:28)
[2023-10-29 16:37] LABS: BUN Creatinine Ratio 14.5 (10-20); Calcium 9.5 mg/dl (8.6-10.3); Creatinine Clr Calc Pharmacy 79.7 ml/min; Est GFR (African American) 85.2 ml/min; Est GFR (Non-African American) 73.5 ml/min; Potassium 3.1 mmol/L (3.5-5.1)
[2023-10-29] MEDS: POTASSIUM CHLORIDE CRTAB 20 MEQ TABCR PO STA (22:17)
--- NOTE | 2023-10-30 07:32 | Hospitalist Progress Note ---
Date of Service October 30, 2023 Assessment & Plan (1) Small bowel obstruction: Plan: Currently admitted w/ SBO -- w/ prior admissions for SBO however no prior hx abdominal surgery. Appears SBOs started w/ first episode in February-March 2018 w/ mid-distal ileus SBO at that time. Subsequent admissions for SBO/omental infarct. Does have hx schatzki's rings, has had EGD in past. 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 Her son had ~16inches of bowel resection in his 30s for diverticulitis Her brother w/ SBO/resection w/o prior hx abdominal surgeries as well Reports acute onset central abd pain w/ n&V CTAP w/ high grade SBO w/ transition point within right paracentral lower pelvis. s/p 1L NSS in ER General surgery consulted NGT removed this morning, passing gas. KUB improved/no further obstruction. Ambulation encouraged WBC wnl, afebrile PO K replacement ordered, mag wnl Clear liquid diet ordered for today, ambulation encouraged Antiemetics, pain control as needed DVT proph; SCDs ordered Hopeful for dc tomorrow --> did discuss avoidance of chlorthaidone at dc as outlined below Did message surgery regarding possible ex lap in future given family hx/unclear cause for repeated obstructions Monitor labs in AM 10/30 - NGT removed, KUB improved. Increased BS throughout. Messaging surgery about prior family hx/ex lap in future given such. K replacement PO, mag stable (2) Hypokalemia: Plan: Noted to be 3.1 on arrival , acute on chronic issue given 40meq IV on admission, repeat down to 2.9 on am labs and additional IV ordered but difficulty tolerating and also added to IVF. Mag wnl Notable patient w/ adrenal adenoma on CTAP -> renin/mynor levels sent, pending Of note, is on chlorthalidone at baseline, placed on hold given NPO status HOWEVER suspect NOT best choice for her given low K at baseline/supplementation and significant lows/hypokalemia in the past. --DISCUSSED CHLORTHALIDONE with patient, and she has been taking 3 pills of potassium for supplementation and DOES NOT HAVE LE EDEMA AT BASELINE --> She is wanting to monitor her BPs at home off meds and take log to her PCP rather than starting aldactone in place of her home med while inpatient for HTN but if needing diuretic for BP/edema management would recommend a POTASSIUM SPARING DIURETIC. Otherwise would use alternative class to loop or thiazide if not needing for fluid management Additional 40meq PO x 1 ordered for today, decrease IVF and if keeping up w/ PO intake will discontinued BMP in AM (3) Hypertension: Plan: Stable at present time in hospital setting/pain Holding home meds (see above under hyperkalemia), can add hydralazine if needed but would SWITCH TO ALDACTONE IN F/U IF NEEDING FOR BP and not fluid management as above. No baseline hx CHF Monitor (4) GERD (gastroesophageal reflux disease): Plan: on omeprazole once daily at baseline --> continues on IV PPI push daily while NPO and can convert back to PO in am if continued PO intake/no issues (5) Depression: Plan: Resumed home citalopram now that NGT removed/diet advanced (issues if she misses for >2 days reported) (6) Microcytosis: Plan: MCV 76.6, iron panel added to AM labs. Does have elevated plt count as well, ?reactive -- improving low trans % sat 12%, ferritin of 9 --> will order dose of IV venofer x1 for today, monitor fecal occult w/ next BM Likely should have further eval of her underlying etiology for recurrent SBOs TSH to AM labs for further eval Plan appreciate recs/assistance from general surgery given patient w/ recurrent SBOs and no prior abdominal surgery and prior recs for possible ex lap for eval were discussed w/ ALIDA this morning but attempting to manage acute SBO conservatively at this time but will need ongoing f/u care diet advanced, continued inpatient stay Admission and Anticipated Discharge Date Admission Date: October 28, 2023 Supervising Physician Co-Signing Physician Notes The patient was not seen by me. The chart was reviewed. Case discussed with SEAN Persaud. Agree with assessment and plan Subjective Eval this morning, feeling much better since NGT removed. She notes passing some gas, no BM. KUB w/ improvement and diet ordered by primary and will monitor. Generalized cramping but decreased, tenderness to upper abdominal/central bowman but no guarding/rigidity. Notes faint murmur by PCP, no CP but some SOB w/ exertion reported from being overweight/deconditioned. No lightheaded/dizziness except on occassion at home and possibly from dehydration w/ her chlorthalidone and electrolyte issues. ON potassium 3 tablets daily w/ her chlorthalidone. Discussed NOT best med, does not take for any LE edema. Discussed was had about causes of HTN/salt in diet/etc. She would prefer to monitor salt in diet and avoid starting any meds at present given issues w/ chlorthaidone and monitor and discuss w/ PCP. She notes new PCP Diana Webster in [facility] but possibly wanting to get new PCP. She notes her brother also had hx SBO/resection w/o prior hx and her son w/ diverticulitis in his 30s and required resection ~16cm of small bowel. Physical Exam Physical Exam: General: 68yo female resting in bed, appears MUCH more comfortable since NGT removed HEENT: NGT in place, trachea midline, mm improved Resp: even/unlabored, slightly diminished in the bases, no w/c/r, on room air CV: RRR, faint systolic murmur, no pitting edema/calf tenderness GI: less distended, soft, no overt tenderness but generalized cramping reported to upper abdomen, no ridigity/guarding small umbilical hernia w/o warmth or evidence for strangulation MSK/Neuro; nonfocal Psych: AOx3, cooperative with exam m and cooperative during the exam Results & Data Results & Data Vital Signs (Past 12 Hours) Vital Signs Temp Pulse Pulse Resp BP Pulse Ox O2 Del Method 10/30/23 03:19 36.9 C 76 18 167/84 H 91 Room Air 10/29/23 22:37 36.3 C L 87 20 150/76 H 93 Room Air 10/29/23 22:33 93 H 10/29/23 20:57 Room Air 10/29/23 19:39 37.4 C 82 20 163/84 H 92 Room Air Laboratory Results 10/30/23 10/29/23 Range/Units 07:03 16:05 WBC 10.18 (4.8-10.8) K/ul RBC 4.69 (4.20-5.40) M/uL Hgb 11.2 L (12.0-16.0) g/dl Hct 35.4 L (37.0-47.0) % MCV 75.5 L (80.0-100.0) fL MCH 23.9 L (25.0-34.0) pg MCHC 31.6 L (32.0-36.0) g/dL RDW Std Deviation 38.4 (36.4-46.3) fL RDW Coeff of Shaq 14.3 (11.5-14.5) % Plt Count 409 H (130-400) K/uL MPV 9.1 L (9.4-12.4) fL Immature Gran % (Auto) 0.5 % Neut % (Auto) 64.2 % Lymph % (Auto) 23.7 % [place] % (Auto) 9.2 % Eos % (Auto) 1.6 % Baso % (Auto) 0.8 % Neut # (Auto) 6.54 H (1.40-6.50) K/uL Lymph # (Auto) 2.41 (1.20-3.40) K/uL [place] # (Auto) 0.94 H (0.11-0.59) K/uL Eos # (Auto) 0.16 (0.00-0.50) K/uL Baso # (Auto) 0.08 (0.00-0.20) K/uL Immature Gran # (Auto) 0.05 (0.01-0.20) K/uL Sodium 139 138 (136-145) mmol/L Potassium 3.2 L 3.1 L (3.5-5.1) mmol/L Chloride 101 101 (98-107) mmol/L Carbon Dioxide 33 H 29 (21-32) mmol/L Anion Gap 5 8 (3-11) BUN 13 12 (6-23) mg/dl Creatinine 0.81 0.83 (0.6-1.2) mg/dl Est Cr Clr Drug Dosing 80.9 79.7 ml/min Est GFR ( Amer) 87.7 85.2 ml/min Est GFR (Non-Af Amer) 75.7 73.5 ml/min BUN/Creatinine Ratio 16.0 14.5 (10-20) Glucose 83 90 (70-99(Fasting)) mg/dl Calcium 9.4 9.5 (8.6-10.3) mg/dl Magnesium 1.9 (1.7-2.4) mg/dl Total Bilirubin 0.5 (0.2-1.0) mg/dl AST 11 L (13-39) U/L ALT 12 (7-52) U/L Alkaline Phosphatase 74 (34-104) U/L Total Protein 6.1 (6.0-8.3) gm/dl Albumin 3.6 (3.4-5.0) gm/dl Globulin 2.5 (2.5-4.0) gm/dl Albumin/Globulin Ratio 1.4 (0.9-2) Cortisol AM Sample 10.08 (6.2-22.6) mcg/dl Diagnostic Findings KUB X-Ray 10/30/23 06:30 KUB HISTORY: Follow-up small bowel obstruction. COMPARISON: KUB 10/29/2023. FINDINGS: The bowel gas pattern is unremarkable. There are no dilated loops of small bowel to suggest an obstruction. No renal calculi. No ureteral calculi. No pneumoperitoneum or pneumatosis. Nasogastric tube terminates in the proximal stomach. IMPRESSION: 1. Nonobstructive bowel gas pattern. 2. Nasogastric tube terminates in the proximal stomach. ACT 112: Negative or not required by law. Electronically signed by: Francis Beckham M.D. 10/30/2023 9:15 AM PG Care Time/CCT Total # of Minutes Spent Total Time Spent with Patient: Total time spent is greater than 50% in coordination of care (as documented) at patient's floor/unit and/or counseling patient: Coding Level of Care Code 26967 SUB INP/OBS CARE 3/50MIN Diagnoses Small bowel obstruction K56.609 Hypokalemia E87.6 Hypertension I10 GERD (gastroesophageal reflux disease) K21.9 Depression F32.9 Microcytosis R71.8
[2023-10-30 07:48] LABS: Basophils # (auto) 0.08 K/uL (0.00-0.20); Basophils % (auto) 0.8 %; Eosinophils # (auto) 0.16 K/uL (0.00-0.50); Eosinophils % (auto) 1.6 %; Hematocrit (blood only) 35.4 % (37.0-47.0); Hemoglobin 11.2 g/dl (12.0-16.0); Immature Granulocytes # (auto) 0.05 K/uL (0.01-0.20); Immature Granulocytes % (auto) 0.5 %; Lymphocytes # (auto) 2.41 K/uL (1.20-3.40); Lymphocytes % (auto) 23.7 %; Mean Corpuscular Hemoglobin 23.9 pg (25.0-34.0); Mean Corpuscular Hgb Conc 31.6 g/dL (32.0-36.0); Mean Corpuscular Volume 75.5 fL (80.0-100.0); Mean Platelet Volume 9.1 fL (9.4-12.4); Monocytes # (auto) 0.94 K/uL (0.11-0.59); Monocytes % (auto) 9.2 %; Neutrophils # (auto) 6.54 K/uL (1.40-6.50); Neutrophils % (auto) 64.2 %; Platelet Count 409 K/uL (130-400); RDW Coefficient of Variation 14.3 % (11.5-14.5); RDW Standard Deviation 38.4 fL (36.4-46.3); Red Blood Count 4.69 M/uL (4.20-5.40); White Blood Count 10.18 K/ul (4.8-10.8)
[2023-10-30 08:03] LABS: Albumin Globulin Ratio 1.4 (0.9-2); Albumin Level 3.6 gm/dl (3.4-5.0); Bilirubin,Total 0.5 mg/dl (0.2-1.0); Calcium 9.4 mg/dl (8.6-10.3); Creatinine Clr Calc Pharmacy 80.9 ml/min; Est GFR (African American) 87.7 ml/min; Est GFR (Non-African American) 75.7 ml/min; Globulin 2.5 gm/dl (2.5-4.0); Magnesium 1.9 mg/dl (1.7-2.4); Potassium 3.2 mmol/L (3.5-5.1); Total Protein 6.1 gm/dl (6.0-8.3)
--- NOTE | 2023-10-30 08:38 | Surgery Progress Note ---
Date of Service October 30, 2023 Assessment & Plan (1) Small bowel obstruction: Plan: Jennifer continues to improve. She has now started to pass gas. Order for NG tube placed. Will start on clears, but she was instructed to go slow with her diet. Ambulation was encouraged. Still no plans for surgical intervention at this time. Patient seen and examined with Dr. Marquez. Admission and Anticipated Discharge Date Admission Date: October 28, 2023 Supervising Physician Co-Signing Physician Notes As per Tracey Sosa physician certified physician assistant The patient would like the NG tube out she states she feels little bit better than yesterday passing some flatus but no bowel movement The abdomen is a bit softer but still distended Will obtain a KUB of the abdomen today did mention to the patient that if this persist then she will need exploration although at times past she resolved after a day or 2 of admission with NG decompression Subjective Jennifer is in bed. She states that she is eager to have NG tube removed. She reports that she has been passing gas, but denies BM. She denies nausea and reports that abdomen feels better than yesterday. Review of Systems Constitutional: as per Subjective / HPI; no fever and no chills Gastrointestinal: + abdominal pain (improved); no bloating , no nausea and no vomiting Physical Exam Physical Exam: alert oriented, pleasant Constitutional: well developed, cooperative and comfortable; no acute distress Respiratory: normal respiratory effort and able to speak in complete sentences; no respiratory distress Gastrointestinal (Abdomen): Percussion/Palpation: + abdomen tender (TTP RLQ reports pain in umbilical area, but improved) and abdomen soft; abdomen not rigid and abdomen not firm Musculoskeletal: no cyanosis or clubbing, extremities motor strength 5/5 Skin: no rashes, warm and dry Psychiatric: A+Ox3, euthymic affect Results & Data Vital Signs (Past 12 Hours) Vital Signs Temp Pulse Pulse Resp BP Pulse Ox O2 Del Method 10/30/23 08:05 36.8 C 75 18 146/67 H 90 Room Air 10/30/23 03:19 36.9 C 76 18 167/84 H 91 Room Air 10/29/23 22:37 36.3 C L 87 20 150/76 H 93 Room Air 10/29/23 22:33 93 H 10/29/23 20:57 Room Air PG Care Time/CCT Total # of Minutes Spent Total Time Spent with Patient: Total time spent is greater than 50% in coordination of care (as documented) at patient's floor/unit and/or counseling patient: Coding Level of Care Code 23673 SUB INP/OBS CARE 09/29MIN Diagnoses Small bowel obstruction K56.609
--- NOTE | 2023-10-30 09:17 | XRay Report ---
KUB HISTORY: Follow-up small bowel obstruction. COMPARISON: KUB 10/29/2023. FINDINGS: The bowel gas pattern is unremarkable. There are no dilated loops of small bowel to suggest an obstruction. No renal calculi. No ureteral calculi. No pneumoperitoneum or pneumatosis. Nasogast haresh tube terminates in the proximal stomach. IMPRESSION: 1. Nonobstructive bowel gas pattern. 2. Nasogastric tube terminates in the proximal stomach. ACT 112: Negative or not required by law. Electronically signed by: Francis Beckham M.D. 10/30/2023 9:15 AM
[2023-10-30] MEDS: POTASSIUM CHLORIDE CRTAB 20 MEQ TABCR PO STA (09:23)
[2023-10-30] MEDS: CITALOPRAM 20 MG TAB PO SCH (09:50)
[2023-10-30] MEDS: IRON SUCROSE 300 MG in SODIUM CHLORIDE 0.9% 250 ML IV ONE (13:03)
[2023-10-31 07:17] LABS: Basophils # (auto) 0.09 K/uL (0.00-0.20); Basophils % (auto) 1.1 %; Eosinophils # (auto) 0.39 K/uL (0.00-0.50); Eosinophils % (auto) 4.6 %; Hematocrit (blood only) 36.5 % (37.0-47.0); Hemoglobin 11.4 g/dl (12.0-16.0); Immature Granulocytes # (auto) 0.07 K/uL (0.01-0.20); Immature Granulocytes % (auto) 0.8 %; Lymphocytes # (auto) 2.29 K/uL (1.20-3.40); Lymphocytes % (auto) 27.1 %; Mean Corpuscular Hemoglobin 23.9 pg (25.0-34.0); Mean Corpuscular Hgb Conc 31.2 g/dL (32.0-36.0); Mean Corpuscular Volume 76.5 fL (80.0-100.0); Monocytes # (auto) 0.74 K/uL (0.11-0.59); Monocytes % (auto) 8.7 %; Neutrophils # (auto) 4.88 K/uL (1.40-6.50); Neutrophils % (auto) 57.7 %; Platelet Count 407 K/uL (130-400); RDW Coefficient of Variation 14.2 % (11.5-14.5); RDW Standard Deviation 38.8 fL (36.4-46.3); Red Blood Count 4.77 M/uL (4.20-5.40); White Blood Count 8.46 K/ul (4.8-10.8)
[2023-10-31 07:37] LABS: Albumin Globulin Ratio 1.5 (0.9-2); Albumin Level 3.7 gm/dl (3.4-5.0); BUN Creatinine Ratio 10.8 (10-20); Bilirubin,Total 0.5 mg/dl (0.2-1.0); Calcium 9.6 mg/dl (8.6-10.3); Creatinine Clr Calc Pharmacy 79.8 ml/min; Est GFR (African American) 85.2 ml/min; Est GFR (Non-African American) 73.5 ml/min; Globulin 2.5 gm/dl (2.5-4.0); Magnesium 1.8 mg/dl (1.7-2.4); Potassium 3.7 mmol/L (3.5-5.1); Total Protein 6.2 gm/dl (6.0-8.3)
--- NOTE | 2023-10-31 07:40 | Hospitalist Progress Note ---
Date of Service October 31, 2023 Assessment & Plan (1) Small bowel obstruction: Plan: Currently admitted w/ SBO -- w/ prior admissions for SBO however no prior hx abdominal surgery. Appears SBOs started w/ first episode in February-March 2018 w/ mid-distal ileus SBO at that time. Subsequent admissions for SBO/omental infarct. Does have hx schatzki's rings, has had EGD in past. 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 Her son had ~16inches of bowel resection in his 30s for diverticulitis Her brother w/ SBO/resection w/o prior hx abdominal surgeries as well Reports acute onset central abd pain w/ n&V CTAP w/ high grade SBO w/ transition point within right paracentral lower pelvis. s/p 1L NSS in ER General surgery consulted NGT removed this morning, passing gas. KUB improved/no further obstruction. Ambulation encouraged WBC wnl, afebrile PO K replacement ordered, mag wnl Clear liquid diet ordered for today, ambulation encouraged Antiemetics, pain control as needed DVT proph; SCDs ordered Hopeful for dc tomorrow --> did discuss avoidance of chlorthaidone at dc as outlined below Did message surgery regarding possible ex lap in future given family hx/unclear cause for repeated obstructions Monitor labs in AM 10/30 - NGT removed, KUB improved. Increased BS throughout. Messaging surgery about prior family hx/ex lap in future given such. K replacement PO, mag stable 10/31 - BP elevated, decision to start low dose spironolactone/monitor response (2) Hypokalemia: Plan: Noted to be 3.1 on arrival , acute on chronic issue given 40meq IV on admission, repeat down to 2.9 on am labs and additional IV ordered but difficulty tolerating and also added to IVF. Mag wnl Notable patient w/ adrenal adenoma on CTAP -> renin/mynor levels sent, pending Of note, is on chlorthalidone at baseline, placed on hold given NPO status HOWEVER suspect NOT best choice for her given low K at baseline/supplementation and significant lows/hypokalemia in the past. --DISCUSSED CHLORTHALIDONE with patient, and she has been taking 3 pills of potassium for supplementation and DOES NOT HAVE LE EDEMA AT BASELINE --> She is wanting to monitor her BPs at home off meds and take log to her PCP rather than starting aldactone in place of her home med while inpatient for HTN but if needing diuretic for BP/edema management would recommend a POTASSIUM SPARING DIURETIC. Otherwise would use alternative class to loop or thiazide if not needing for fluid management Additional 40meq PO x 1 ordered for today, decrease IVF and if keeping up w/ PO intake will discontinued BMP in AM (3) Hypertension: Plan: Stable at present time in hospital setting/pain Holding home meds (see above under hyperkalemia), can add hydralazine if needed but would SWITCH TO ALDACTONE IN F/U IF NEEDING FOR BP and not fluid management as above. No baseline hx CHF Monitor (4) GERD (gastroesophageal reflux disease): Plan: on omeprazole once daily at baseline --> continues on IV PPI push daily while NPO and can convert back to PO in am if continued PO intake/no issues (5) Depression: Plan: Resumed home citalopram now that NGT removed/diet advanced (issues if she misses for >2 days reported) (6) Microcytosis: Plan: MCV 76.6, iron panel added to AM labs. Does have elevated plt count as well, ?reactive -- improving. low trans % sat 12%, ferritin of 9. Iron deficiency --> Venofer x 1 on 10/30, repeating dose for today Fecal occult blood NEGATIVE TSH pending Likely should have further eval of her underlying etiology for recurrent SBOs Plan appreciate recs/assistance from general surgery given patient w/ recurrent SBOs and no prior abdominal surgery and prior recs for possible ex lap for eval were discussed w/ ALIDA this morning but attempting to manage acute SBO conservatively at this time but will need ongoing f/u care diet advanced, continued inpatient stay Admission and Anticipated Discharge Date Admission Date: October 28, 2023 Results & Data Results & Data Vital Signs (Past 12 Hours) Vital Signs Temp Pulse Pulse Resp BP BP Pulse Ox 10/31/23 07:35 36.7 C 68 18 191/81 H 94 10/31/23 03:11 36.6 C 78 18 152/90 H 92 10/30/23 23:11 36.5 C 83 18 159/72 H 93 10/30/23 21:58 98 H 10/30/23 19:50 36.7 C 86 20 184/81 H 93 O2 Del Method 10/31/23 07:35 Room Air 10/31/23 03:11 Room Air 10/30/23 23:11 Room Air 10/30/23 21:58 10/30/23 19:50 Room Air PG Care Time/CCT Total # of Minutes Spent Total Time Spent with Patient: Total time spent is greater than 50% in coordination of care (as documented) at patient's floor/unit and/or counseling patient: Coding Diagnoses Small bowel obstruction K56.609 Hypokalemia E87.6 Hypertension I10 GERD (gastroesophageal reflux disease) K21.9 Depression F32.9 Microcytosis R71.8
[2023-10-31 07:51] LABS: Thyroid Stimulating Hormone 4.357 uIu/ml (0.300-4.500)
--- NOTE | 2023-10-31 07:53 | Surgery Progress Note ---
Date of Service October 31, 2023 Assessment & Plan (1) Small bowel obstruction: Plan: Yesterday's KUB showed no evidence of any obstructive pattern Patient clinically is improved suspect the obstruction has resolved at this point we will increase her low fiber diet reevaluate her later today and if she tolerates that without any issues that she can be discharged on a low fiber diet but if the patient has recurrent symptoms that we will, recommend that we p roceed with exploratory laparotomy Plan Increase diet to low fiber tolerates that she can be discharged today on a low fiber diet to follow-up in our office on an as-needed basis but if she should have recurrent symptoms then surgical exploration is warranted Admission and Anticipated Discharge Date Admission Date: October 28, 2023 Subjective Feels much better stating she had a bowel movement this morning Denies any nausea tolerated the liquid diet yesterday Physical Exam Physical Exam: Alert coherent resting comfortably in bed no acute distress The abdomen is benign there is no tenderness no guarding Results & Data Vital Signs (Past 12 Hours) Vital Signs Temp Pulse Pulse Resp BP BP Pulse Ox 10/31/23 07:35 36.7 C 68 18 191/81 H 94 10/31/23 03:11 36.6 C 78 18 152/90 H 92 10/30/23 23:11 36.5 C 83 18 159/72 H 93 10/30/23 21:58 98 H 10/30/23 19:50 36.7 C 86 20 184/81 H 93 O2 Del Method 10/31/23 07:35 Room Air 10/31/23 03:11 Room Air 10/30/23 23:11 Room Air 10/30/23 21:58 10/30/23 19:50 Room Air
[2023-10-31] MEDS: IRON SUCROSE 300 MG in SODIUM CHLORIDE 0.9% 250 ML IV ONE (09:21)
--- NOTE | 2023-10-31 09:34 | XRay Report ---
KUB CLINICAL HISTORY: Follow-up small bowel obstruction. FINDINGS: 2 AP, portable, supine abdominal radiographs are compared to study dated 10/30/2023 and lorena elated with abdominal CT dated 10/28/2023. There is no radiographic evidence of high-grade obstructio n. Mildly distended end gas-filled loops of small bowel in the left mid abdomen measure up to 2.6 cm. No evidence of intraperitoneal free air is seen on these supine images. There are no abnormal abdomi nal calcifications. The skeletal structures are osteopenic and appear intact. There is moderate lumbo sacral spondylosis. Sclerotic change is noted in the sacroiliac joints. IMPRESSION: 1. There is no radiographic evidence of high-grade small bowel obstruction. 2. Mildly distended and gas-filled loops of small bowel in the left mid abdomen may correspond to the bowel obstruction seen by CT. Correlate clinically. Electronically signed by: Perry Bernard M.D. 10/31/2023 9:33 AM
[2023-10-31] MEDS: SPIRONOLACTONE 12.5 MG TAB PO SCH (10:35)
--- NOTE | 2023-10-31 10:56 | Discharge Summary ---
Date of Service October 31, 2023 Admission HPI Per Admitting Provider Jennifer is a 68 year old female with a PMH significant for previous SBO which resolved with bowel rest, HTN, GERD, chronic hypokalemia, and hyperlipidemia who presented to the [facility] ED on 10/28/23 with acute onset of central abdominal pain, nausea, and vomiting. She remained stable in the ED. Labs were significant for a leukocytosis of 14 with neutrophil predominance of 12, MCV of 74, MCHC of 31, platelets of 579, potassium of 3.1. CT of the abd/pelvis w/IV con was read as "1. High-grade small bowel obstruction with transition point within the right paracentral lower pelvis, possibly on the basis of adhesions. 2. No pneumoperitoneum. 3. Small volume of ascites with interloop edema. 4. Normal appendix.". Prior to admission General Surgery evaluated the patient and recommended NG tube placement and bowel rest for now. She was given 1L NSS, 10 meq IV KCL, 4 mg IV zofran, 2 mg IV morphine, and 1gm IV tylenol with improvement in her symptoms prior to admission. At the time of the exam the patient was sitting in bed in no acute distress with her sitting bedside. She was in her normal state of health last night when she went to bed. She had a steak sandwich for dinner and some peanuts for a snack. She was woken from sleep at 0400 with acute onset of central abdominal pain which was described as 10/10, sharp/stabbing. The patient did not radiate anywhere else and was associated with multiple episodes of nausea and non-bloody emesis. She is currently symptom free at the time of my exam. She did not have her am meds prior to ED arrival. She denies recent fever, chills, chest pain, SOB, cough, dysuria, hematuria, melena, diarrhea, LE swelling and recent trauma. He last BM was after ED arrival and was described as normal for her. She is a full code and would want her to make medical decisions for her if she cannot make them herself. Please refer to Dr. Machado's attestation for any changes to the treatment plan Admission Exam Per Admitting Provider Physical Exam: General: In no acute distress, stated age, well-nourished, good hygiene HEENT: Normocephalic, atraumatic, no scleral icterus, pupils around round, symmetrical, and reactive to light, moist mucus membranes, trachea midline, no thyromegaly Chest/Pulm: No respiratory distress, symmetrical chest expansion, clear breath sounds throughout Cardiac: RRR, no murmurs noted Abdomen: Mildly distended abdomen without signs of bruising, hypoactive bowel sounds, soft, tender to palpation in the epigastric region but otherwise non- tender Musculoskeletal: Symmetrical and without signs of acute trauma, upper and lower extremities with full ROM, no atrophy, spasticity, or flaccidity Extremities: Radial, dorsalis pedis, and posterior tibial pulses are intact and symmetrical, no edema noted in the BL LE's Skin: Warm, dry, no rashes , lesions, or scars noted Neuro: Alert and oriented to person, place, month, year, and president, no focal defects, no tremors noted Psych: No acute distress, calm and cooperative during the exam Principal Diagnosis SBO Discharge Exam General: 68yo female resting in bed, appears MUCH more comfortable since NGT removed HEENT: NGT in place, trachea midline, mm improved Resp: even/unlabored, slightly diminished in the bases, no w/c/r, on room air CV: RRR, faint systolic murmur, no pitting edema/calf tenderness GI: less distended, soft, no overt tenderness but generalized cramping reported to upper abdomen, no ridigity/guarding small umbilical hernia w/o warmth or evidence for strangulation MSK/Neuro; nonfocal Psych: AOx3, cooperative with exam m and cooperative during the exam Discharge Data Allergies Allergy/AdvReac Type Severity Reaction Status Date / Time lisinopril AdvReac Unknown Cough Verified 10/28/23 14:55 Consultations 10/28/23 14:16 Consult General Surgery Stat 10/28/23 14:17 ED Decision to Admit Stat Ordered Studies Abdomen/Pelvis CT 10/28/23 11:[address] WITH IV CONTRAST CT DOSE: 1387.67 mGy.cm HISTORY: Acute generalized abdominal pain with nausea and vomiting abdominal pain, N/V TECHNIQUE: Multiaxial CT images of the abdomen and pelvis were performed follow ing the IV administration of 94 cc of Optiray, A dose lowering technique was utilized adhering to the principles of ALARA. COMPARISON STUDY: CT 08/07/2019 FINDINGS: Clear lung bases with minimal bibasilar atelectasis. No free air. Unremarkable spleen, pancreas and right adrenal gland. Slightly enlarged with a 1.8 cm left adrenal lesion previously diagnosed as an adenoma, now measuring 1.8 cm. Hepatic steatosis. Unremarkable gallbladder. There is patency of the hepatic and portal veins. Unremarkable kidneys. 10 mm cyst of the superior pole right kidney. No hydronephrosis. Decompressed urinary bladder with mild wall thickening. Unremarkable appearance of the uterus and adnexa. Atherosclerosis of the aorta without aneurysm. No pathologically enlarged lymph nodes identified. Colonic diverticulosis. Trace pelvic ascites. Small bowel obstruction involving loops of ileum within the central and lower abdomen and pelvis with dilated loops measuring up to 3.8 cm on image 277 series 3 just proximal to a transition point on image 309 within the right paracentral pelvis. There is adjacent decompressed loop of ileum demonstrating circumferential wall thickening on image 300. Normal appendix. Tiny fat filled umbilical hernia. No acute fracture. IMPRESSION: 1. High-grade small bowel obstruction with transition point within the right paracentral lower pelvis, possibly on the basis of adhesions. 2. No pneumoperitoneum. 3. Small volume of ascites with interloop edema. 4. Normal appendix. ACT 112: Negative or not required by law. The above report was generated using voice recognition software. It may contain grammatical, syntax or spelling errors. Electronically signed by: Toy Nunn M.D. 10/28/2023 1:33 PM Chest X-Ray 10/28/23 14:49 XR chest 1V portable CLINICAL HISTORY: NG tube placement COMPARISON STUDY: CT of the abdomen and pelvis October 28, 2023. Abdominal series and chest radiograph March 14, 2018. FINDINGS: Tip of the nasogastric tube is within the proximal body of the stomach. The tube could be advanced an additional 3 cm. Postoperative findings within the spine are incidentally noted. There is no pneumothorax or pleural effusion. Pulmonary vascularity is normal. Cardiac mediastinal silhouette unremarkable. IMPRESSION: 1. Tip of nasogastric tube within the proximal body of the stomach. The tube could be advanced an additional 3 cm. 2. No acute cardiopulmonary findings. ACT 112: Negative or not required by law. Electronically signed by: Levi Arnold M.D. 10/28/2023 3:35 PM KUB X-Ray 10/29/23 07:00 KUB CLINICAL HISTORY: Small bowel obstruction. FINDINGS: An AP, portable, supine abdominal radiograph is correlated with abdominal CT dated 10/28/2023. An enteric tube is in place. The tip projects at the level of the diaphragm. There is no radiographic evidence of high-grade obstruction. No evidence of intraperitoneal free air is seen on this supine image. There are no abnormal abdominal calcifications. The skeletal structures are osteopenic and appear intact. There is moderate lumbosacral spondylosis. Sclerotic change is noted in the sacroiliac joints. IMPRESSION: 1. An enteric tube is in place. The tip projects at the level of the diaphragm and should be advanced. 2. There is no radiographic evidence of high-grade small bowel obstruction. The obstruction seen by CT is not appreciated on x-ray. Electronically signed by: Perry Bernard M.D. 10/29/2023 9:50 AM KUB X-Ray 10/30/23 06:30 KUB HISTORY: Follow-up small bowel obstruction. COMPARISON: KUB 10/29/2023. FINDINGS: The bowel gas pattern is unremarkable. There are no dilated loops of small bowel to suggest an obstruction. No renal calculi. No ureteral calculi. No pneumoperitoneum or pneumatosis. Nasogastric tube terminates in the proximal stomach. IMPRESSION: 1. Nonobstructive bowel gas pattern. 2. Nasogastric tube terminates in the proximal stomach. ACT 112: Negative or not required by law. Electronically signed by: Francis Beckham M.D. 10/30/2023 9:15 AM KUB X-Ray 10/31/23 07:47 KUB CLINICAL HISTORY: Follow-up small bowel obstruction. FINDINGS: 2 AP, portable, supine abdominal radiographs are compared to study dated 10/30/2023 and correlated with abdominal CT dated 10/28/2023. There is no radiographic evidence of high-grade obstruction. Mildly distended end gas-filled loops of small bowel in the left mid abdomen measure up to 2.6 cm. No evidence of intraperitoneal free air is seen on these supine images. There are no abnormal abdominal calcifications. The skeletal structures are osteopenic and appear intact. There is moderate lumbosacral spondylosis. Sclerotic change is noted in the sacroiliac joints. IMPRESSION: 1. There is no radiographic evidence of high-grade small bowel obstruction. 2. Mildly distended and gas-filled loops of small bowel in the left mid abdomen may correspond to the bowel obstruction seen by CT. Correlate clinically. Electronically signed by: Perry Bernard M.D. 10/31/2023 9:33 AM ECHOCARDIOGRAM 10/31/23 LV systolic function is normal. No regional wma. Mild concentric LVH. EF 60-65%. Aortic valve sclerosis mild without significant aortic valvular stenosis. No prior study for comparison. Hospital Course (1) Small bowel obstruction: Admitted w/ SBO Reports acute onset central abd pain w/ n&V CTAP w/ high grade SBO w/ transition point within right paracentral lower pelvis. * w/ prior admissions for SBO however no prior hx abdominal surgery. Appears SBOs started w/ first episode in February-March 2018 w/ mid-distal ileus SBO at that time. Subsequent admissions for SBO/omental infarct. Does have hx schatzki's rings, has had EGD in past. 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 General surgery consulted NGT placed, bowel rest and pain control/antiemetics ordered as needed and patien t w/ +flatus and NGT was removed and ambulation encouraged and continued improvement w/ increase to low fiber diet 10/31 given +BM reported overnight and again this morning despite KUB findings w/ some dilated loops in site of prior SBO site depicted on CTAP on admission however could be lagging behind. Discussed w/ Dr Marquez given patient wanting to go home and +BS throughout, soft abd on exam and ok'd discharge from surgery standpoint however did discuss with patient and general surgery given repeated obstructions w/o clear underlying cause and to continue low fiber diet with daily miralax along with monitoring of any symptoms and if this were to RECUR, STRONGLY SUGGEST PATIENT TO UNDERGO EX LAP for further evaluation given son in 30s w/ resection of bowel for diverticulitis and brother w/ SBO w/ resection without hx of prior abdominal surgeries as well. She did also have iron studies checked which were low and Venofer x 2 provided. Fecal occult negative but should have f/u GI for EGD/c-scope in follow up as well -- asked for [facility] f/u as reports did not want to follow up with Dr Mike/office Ongoing potassium supplementation while inpatient challenging and was in her IVF and additional K riders however further review of home medications w/ chlorthalidone as below w/ chronic lows and did send renin/aldosterone and discussion was had and given elevated BPs (initially she was going to try low salt diet however do suspect needs aspect of volume management at baseline) decision to start low dose spironolactone 12.5mg daily and stop home K supplementation and follow up with labs and PCP later this week to ensure K staying stable. Further monitoring of her BPs at home and titration of medications per PCP in follow up. K 3.7 prior to discharge Also discussed to hold off on her Ca/vitamin d supplementation for now at discharge given borderline Ca on admission and Vit D normal. She is on them for hx parathyroidectomy and should discuss timing/frequency w/ primary care Patient instructed to monitor for any increased abdominal pain/decreased flatus/n/v or concerning symptoms to return to ER. (2) Hypokalemia: CHRONIC ISSUE AT BASELINE, K3.1 on admission down to 2.9 at one point --> HOME MEDS w/ chlorthalidone and supplemental potassium THREE times daily Discussed w/ patient and sent renin/mynor given underlying HTN (concentric LVH on ECHO and BPs in system) decision to SWITCH to spironolactone at discharge as above Incidental adrenal adenoma on CTAP obtained on admission for SBO --> sent renin/mynor given HTN and finding given chronic hypokalemia suspected worsened by such --> will need f/u on such, did mention slightly increased in size Labs for repeat BMP later this week to ensure K staying stable (3) Hypertension: Home meds held as above, hydralazine added prn Further discussion as above regarding chlorthalidone and chronic hypokalemia and decision to switch to spironolactone 12.5mg daily as above which may need further titration outpatient --> Discussed low salt diet at home, monitoring of BPs and keeping log for follow up with PCP but warning signs if/when to return to ER if needed No prior hx CHF, however does have some mild aortic valve sclerosis on echo (checked given murmur on exam/no prior echo in system) (4) GERD (gastroesophageal reflux disease): on omeprazole once daily at baseline --> continued on protonix while inpatient and can resume home meds at dc (5) Depression: Resumed home citalopram now that NGT removed/diet advanced (issues if she misses for >2 days reported) -- mood stable on repeat exam (6) Microcytosis: MCV 76.6, iron panel added to AM labs. Does have elevated plt count as well, ?reactive -- improving. low trans % sat 12%, ferritin of 9 --> Iron deficiency --> Venofer 300mg IV x 2 provided while inpatient. Fecal occult negative TSH borderline 4.357 but wnl Likely should have further eval of her underlying etiology for recurrent SBOs as discussed above (7) Aortic valve sclerosis: + murmur on exam, no prior echo -- completed given LE edema (spironolactone for diuretic effect as above) No significant CHF symptoms however echo noting aortic valve sclerosis without significant aortic valvular stenosis and can f/u with routine monitoring with primary care Plan discharged home on low fiber diet and to return for any worsening symptoms and c onsideration for ex lap in future given no clear underlying etiology. GI/general surgery f/u outpatient Total Time Total Time Spent Total Time Spent (In Minutes): 45 Discharge Plan Discharge Items Patient Disposition: Home - Self-Care Reason For Visit: HIGH GRADE SBO, HYPOKALEMIA Discharge Diagnosis: Small Bowel Obstruction Goals: You have been hospitalized for an acute medical problem. During your stay at [facility], we have made an effort to correct the problem that brought you to the hospital while keeping you as comfortable as possible. Medications were used to bring your condition under control and your discharge instructions will include directions for any medications you should take after leaving the hospital. Please make sure you see your Primary Care Provider as part of your follow up plan. Activity: As commented below Non-emergency contact: Primary Care Provider and Surgeon Call non-emergency contact if: you have any medication questions, your symptoms worsen, your pain is concerning for you and you have a fever Follow-up/Referrals: Mauri Marquez MD, FACS [Surgeon] - Diana Webster CRNP [Primary Care Provider] - 11/10/23 1:30 pm Shyam Chan MD [Physician] - Diet: Low Fiber Diet Comment: low fiber/low residual diet x 2 weeks, then advance as tolerated Ambulatory Orders: Basic Metabolic Panel (Routine) Timeframe: [id number] Location: Determined by Patient Ordered By: Britta Vasqueztl Attending Provider Instructions: You have been hospitalized for a recurrent small bowel obstruction. General surgery was consulted and you were able to be managed conservatively with bowel rest/NG tube and IV fluids. As discussed, you should continue discussions with general surgery in follow up to see about an exploratory laparotomy in the future given recurrance, especially if suspected diverticula are the cause given your family history with your brother and son. Regarding your low potassium, review of your medications shows chlorthalidone which is a common culprit and if making you dehydrated and put you at risk for repeated obstructions however this can also worsen electrolytes and lead to cramping/irregular heart rhythms. We have stopped this on admission and provided IV and oral potassium replacement and have decided to STOP this medication at discharge. As discussed, please continue with a low salt diet at discharge and monitor your blood pressures at home. We have sent out for renin/aldosterone levels given the adrenal adenoma on imaging however this is suspected as benign but should be followed up with the send out labs. We have decided to start low dose spironolactone for blood pressure and volume management to help with potassium levels and this can be increased if needed for better blood pressure control and you should continue to monitor your blood pressures at home and keep a log for follow up with primary care. Please stick with low salt diet to also help. You should hold off your vitamin D/calcium supplementation for now and discuss with primary care about resuming this a couple times a week but your levels were acceptable and we would want to prevent repeat obstructions which can be worsened with elevated calcium levels. You should continue miralax once daily to ensure continuing to move your bowels. Repeat labs this upcoming week to ensure your potassium stays stable. Please continue a low fiber diet at discharge for the next 2 weeks and then advance as tolerated. Please follow up with primary care in the next 7-10 days from discharge to monitor your progress. Please return to the emergency department with any increased pain/nausea/vomiting or inability to keep up with oral intake, or for any other symptoms concerning for you. It has been a pleasure being a part of the medical team providing for you while you have been in the hospital. Take care! Pending Studies at Discharge: Yes (Renin, Aldosterone) Stand-Alone Forms: My [facility], Smoking Cessation Medications and DC Order Prescriptions: New spironolactone 25 mg Tablet 12.5 mg PO DAILY Qty: 30 0RF Continued simvastatin 10 mg tablet 10 mg PO HS Qty: 90 3RF citalopram 20 mg tablet 20 mg PO QAM Qty: 90 3RF polyethylene glycol 3350 [Miralax] 17 gram/dose powder 17 gm PO DAILY omeprazole 40 mg capsule,delayed release(DR/EC) 40 mg PO QAM Rx Instructions: TAKE 1 CAPSULE BY MOUTH DAILY. Held calcium carbonate-vitamin D3 [Calcium 500 + D] 500 mg(1,250mg) -200 unit tablet 1 tab PO QAM Qty: 90 1RF Hold Instructions: Resume on 11/04/23. cholecalciferol (vitamin D3) 2,000 unit capsule 2,000 units PO DAILY Hold Instructions: Resume on 11/04/23. hold until discussed in follow up Discontinued chlorthalidone 25 mg tablet 25 mg PO QAM Qty: 90 3RF potassium chloride 10 mEq tablet extended release 10 meq PO TID Qty: 270 3RF Discharge Orders: Discharge Order (Routine); Ordered 10/31/23 Ordered By: Britta Madrigal/Other Patient Handouts: Low-Fiber Diet Admission Data Admit Date/Time: 10/28/23 14:41 Attending Provider: Harish Bernal Admit Provider: Roger Machado Primary Care Provider: Diana Webster Other Providers: Mauri Marquez; Roger Machado Other Interventions: Discharge Summary Assessment (RN) Last Done: 10/31/23 11:15 Supervising Physician Co-Signing Physician Notes The patient was not seen by me. The chart was reviewed. Case discussed with SEAN Persaud. Agree with assessment and plan. The patient is medically stable for discharge today, October 31 Coding Level of Care Code 69001 INP/OBS DISCH >30 MIN Diagnoses Small bowel obstruction K56.609 Hypokalemia E87.6 Hypertension I10 GERD (gastroesophageal reflux disease) K21.9 Depression F32.9 Microcytosis R71.8 Aortic valve sclerosis I35.8
--- NOTE | 2023-10-31 11:16 | XCELERA ---
[id number]
== END 2023-10-31 15:14 | disposition home or self-care (01) | DRG 390 ==
LOC: ED 10:45 → SUATTDRO 14:41 → EDINP 14:41 → 2N 15:50

== ENCOUNTER 2023-11-16 15:44 | Inpatient (IN) ==
--- NOTE | 2023-11-16 15:52 | History & Physical Report ---
Date of Service November 16, 2023 Assessment & Plan (1) Small bowel obstruction: Plan: This is a 68yF with a PMH of recurring SBO, HTN, HLD, GERD, depression who was referred for admission after evaluation in our outpatient general surgical office this afternoon for abdominal pain. She was recently admitted last month with SBO that was managed conservatively, but she has been dealing with multiple episodes concerning for SBO dating back to 2019. She said since discharge a couple weeks ago she never really felt fully recovered and she's experienced worsening pain and nausea over the last 24 hours. She had an appointment previously scheduled with Dr. Marquez today who is familiar with patient's case. Due to ongoing concern for SBO type picture it was recommended she be directly admitted for management of abdominal pain and consider diagnostic laparoscopy at this point given recurring symptoms. Patient was evaluated in the ER and blood work is ordered and currently pending. On exam patient's abdomen is soft, non distended with discomfort in the central and mid upper abdomen. Vitals are stable outside of some HTN with SBPs in the 160s. Based on her history we will admit patient to the hospital under our service. Keep NPO with IVF and provide prn pain and anti-nausea meds as needed. We will book the patient for the OR tomorrow with Dr. Marquez for a diagnostic laparoscopy, possible ex lap, possible bowel resection, possible ostomy. Patient is agreeable to do what- ever is needed to be done to resolve her pain. History of Present Illness Primary Care Provider: ELISE Esquivel This is a 68yF with a PMH of recurring SBO, HTN, HLD, GERD, depression who was referred for admission after evaluation in our outpatient general surgical office this afternoon. She was recently admitted last month (10/2023)with SBO that was managed conservatively. She said since discharge she never really felt fully recovered. She's been having pain mostly in the mid and upper abdomen that never truly went away. Then last night between the hours of 4p-2am she reports experiencing 10/10 pain that made it difficult for her to get comfortable or sleep. She had an appointment previously scheduled with Dr. Alma rios who is familiar with patient's case. Due to ongoing pain it was recommended she be directly admitted for management of her SBO and consider diagnostic laparoscopy at this point given recurring symptoms. She has been seen by our services back in [address] at that time showed abnormally distended and mildly inflamed appearing distal ileum in the right lower quadrant. A partial low-grade bowel obstruction is suspected at this site, presumably from adhesions or an inflammatory stenosis. Since then she has undergone a colonoscopy that per patient was unremarkable. Between 2019 and last month she said she's experienced many episodes similar to this at home that she should have come in for, but ended up managing on her own. She has not passed much flatus since her discharge a couple weeks ago. She is having small volume BM's, last one was today, but nothing of significance and she has not been regular. She has nausea, but no em esis since last admission. She endorses feeling bloated and burping frequently. Only ate a banana today. She has no abdominal surgical history. Allergies Allergy/AdvReac Type Severity Reaction Status Date / Time lisinopril AdvReac Unknown Cough Verified 11/16/23 15:04 Home Medications Medication Instructions Recorded Confirmed Type cholecalciferol (vitamin D3) 50 2,000 units PO DAILY 03/16/19 11/16/23 History mcg (2,000 unit) capsule polyethylene glycol 3350 17 17 gm PO DAILY 06/05/19 11/16/23 History gram/dose oral powder (Miralax) calcium carbonate 500 mg-vitamin 1 tab PO QAM #90 tabs 05/20/20 11/16/23 Rx D3 5 mcg (200 unit) tablet (Calcium 500 + D) citalopram 20 mg tablet 20 mg PO QAM #90 tabs 07/13/23 11/16/23 Rx simvastatin 10 mg tablet 10 mg PO HS #90 tabs 07/13/23 11/16/23 Rx omeprazole 40 mg capsule,delayed 40 mg PO QAM 10/28/23 11/16/23 History release spironolactone 25 mg tablet 12.5 mg (1/2 x 25 mg) PO DAILY #90 11/01/23 11/16/23 Rx tabs Past Med/Surg History Medical History Heart murmur COVID-19 virus infection Tear of medial meniscus of right knee Abnormal abdominal CT scan Small bowel obstruction Hiatal hernia History of claustrophobia Cervical stenosis of spinal canal Osteoarthritis Surgical History History of neck surgery Fusion of spine CERVICAL History of repair of rotator cuff RT History of colonoscopy History of parathyroidectomy PARTIAL History of tooth extraction Family History Mother Hypertension Father Hypertension Aunt Cancer Maternal Aunt, Liver CA Other COPD (chronic obstructive pulmonary disease) Coronary heart disease Depression Dyslipidemia Heart disease Denies family history of Ovarian cancer Breast cancer Colorectal cancer Social History (Updated 11/16/23 @ 16:37 by Ting Briseno RN) Smoking Status: Never smoker Second Hand Exposure: No; Do You Dip or Chew Tobacco: No; Hx Alcohol Use: No Hx Substance Use: No Preferred Language: Upper Sorbian Communication Ability: Effective Visual Impairment: Limited Hearing Ability: Normal Sales Rep Required: No Beliefs That Will Affect Care: None marital status: Current Living Situation: Spouse and Family current occupational status: retired How many Children do You have: 2 Feels Safe at Home: Yes Childhood Exposure to Second-Hand Smoke: Yes Diet: regular caffeine: Yes during the past year weight has: remained stable Dental Care, Regularly: Yes Physical Activity Frequency: Daily Seatbelt Use: always Sunscreen Use: No Assistive Devices: None Review of Systems Constitutional: no fever and no chills Respiratory: no dyspnea Cardiovascular: no chest pain Gastrointestinal: + abdominal pain, + bloating, + nausea a nd + constipation; no vomiting no flatus Physical Exam Physical Exam: awake/alert, no distress Constitutional: well developed and well nourished; no acute distress Respiratory: normal respiratory effort Gastrointestinal (Abdomen): Inspection/Auscultation: abdomen not distended Percussion/Palpation: + abdomen tender (discomfort to palpation in central abdomen and supra umbilical area) and abdomen soft PG Care Time/CCT Total # of Minutes Spent Total Time Spent with Patient: Total time spent is greater than 50% in coordination of care (as documented) at patient's floor/unit and/or counseling patient: Coding Level of Care Code None Diagnoses Small bowel obstruction K56.609
--- NOTE | 2023-11-16 16:03 | ED Triage Note ---
Date of Service November 16, 2023 Provider in Triage Author: Gliberto Beckford History of Present Illness This patient was briefly evaluated while in triage. An abbreviated physical exam was performed. This patient is a 68-year-old Female who presents to the ED for evaluation of ongoing abdominal pain. The patient was told to come to the emergency department by Dr. Marquez for exploratory surgery, having seen him in the office at approximately 3 PM. The patient rates her discomfort a 3 out of 10. The patient was seen at our facility 3 weeks ago with a diagnosis of small bowel obstruction. The patient does report nausea without vomiting. She currently is not taking any medications for symptomatic relief. Physical Exam CONSTITUTIONAL: Healthy and well nourished. Patient does not appear in any acute distress. HEENT: No scleral icterus or conjunctival injection/pallor. RESPIRATORY: Clear to auscultation bilaterally with no wheezing, crackles, rhonchi or stridor. CARDIOVASCULAR: Regular rate and rhythm with no murmurs, rubs or gallops. GASTROINTESTINAL: Bowel sounds present in all quadrants. Patient has generalized abdominal tenderness to palpation. MUSCULOSKELETAL: Full range of motion of all joints without discomfort. INTEGUMENTARY: No rash or other significant dermatologic conditions noted. HEMATOLOGIC: No ecchymosis or petechiae. PSYCHIATRIC: Positive affect. NEUROLOGIC: No focal neurologic deficits noted. Initial orders for labs and / or imaging were placed and patient was placed in the waiting area until a bed is available. Please see further documentation for the full ED course.
--- NOTE | 2023-11-16 16:12 | Emergency Department Note ---
ED Provider Note History of Present Illness Chief Complaint: GI Assessment Stated Complaint: DOC REF, ADMIT, EXPLORE SURGERY, BOWEL OBSTRUCTION Time Seen by Provider: 11/16/23 16:14 This patient is a 68-year-old Female who presents to the ED for evaluation of ongoing abdominal pain. The patient was told to come to the emergency departm ent by Dr. Marquez for exploratory surgery, having seen him in the office at approximately 3 PM. The patient rates her discomfort a 3 out of 10. The patient was seen at our facility 3 weeks ago with a diagnosis of small bowel obstruction. The patient does report nausea without vomiting. She currently is not taking any medications for symptomatic relief. Home Medications Medication Instructions Recorded Confirmed Type cholecalciferol (vitamin D3) 50 2,000 units PO DAILY 03/16/19 11/16/23 History mcg (2,000 unit) capsule polyethylene glycol 3350 17 17 gm PO DAILY 06/05/19 11/16/23 History gram/dose oral powder (Miralax) calcium carbonate 500 mg-vitamin 1 tab PO QAM #90 tabs 05/20/20 11/16/23 Rx D3 5 mcg (200 unit) tablet (Calcium 500 + D) citalopram 20 mg tablet 20 mg PO QAM #90 tabs 07/13/23 11/16/23 Rx simvastatin 10 mg tablet 10 mg PO HS #90 tabs 07/13/23 11/16/23 Rx omeprazole 40 mg capsule,delayed 40 mg PO QAM 10/28/23 11/16/23 History release spironolactone 25 mg tablet 12.5 mg (1/2 x 25 mg) PO DAILY #90 11/01/23 11/16/23 Rx tabs Allergies Allergy/AdvReac Type Severity Reaction Status Date / Time lisinopril AdvReac Unknown Cough Verified 11/16/23 15:04 Past Med/Surg History Medical History Heart murmur COVID-19 virus infection Tear of medial meniscus of right knee Abnormal abdominal CT scan Small bowel obstruction Hiatal hernia History of claustrophobia Cervical stenosis of spinal canal Osteoarthritis Surgical History History of neck surgery Fusion of spine CERVICAL History of repair of rotator cuff RT History of colonoscopy History of parathyroidectomy PARTIAL History of tooth extraction Family History Mother Hypertension Father Hypertension Aunt Cancer Maternal Aunt, Liver CA Other COPD (chronic obstructive pulmonary disease) Coronary heart disease Depression Dyslipidemia Heart disease Denies family history of Ovarian cancer Breast cancer Colorectal cancer Social History Smoking Status: Never smoker Second Hand Exposure: No; Do You Dip or Chew Tobacco: No; Hx Alcohol Use: No Hx Substance Use: No Preferred Language: Iranian Communication Ability: Effective Visual Impairment: Limited Hearing Ability: Normal Wine And Spirits Clerk Required: No Beliefs That Will Affect Care: None marital status: Current Living Situation: Spouse and Family current occupational status: retired How many Children do You have: 2 Feels Safe at Home: Yes Childhood Exposure to Second-Hand Smoke: Yes Diet: regular caffeine: Yes during the past year weight has: remained stable Dental Care, Regularly: Yes Physical Activity Frequency: Daily Seatbelt Use: always Sunscreen Use: No Assistive Devices: None Physical Exam Vital Signs Vital Signs - 24 hr 11/16/23 15:59 Temperature 36.4 C L Temperature Source Temporal Artery Scan Pulse Rate 85 Respiratory Rate 18 Respiratory Effort / Characteristics Non-Labored Spontaneous Respiratory Depth Normal Respiratory Pattern Regular Blood Pressure 161/87 H Blood Pressure Mean 111 Pulse Oximetry 98 Oxygen Delivery Method Room Air Sepsis Recent Fever Within 48 Hours No Sepsis New/Unexplained Change in Mental Status N/A Sepsis Action Taken by Nursing No Action Required CONSTITUTIONAL: Healthy and well nourished. Patient does not appear in any acute distress. RESPIRATORY: Clear to auscultation bilaterally with no wheezing, crackles, rhonchi or stridor. CARDIOVASCULAR: Regular rate and rhythm with no murmurs, rubs or gallops. GASTROINTESTINAL: Bowel sounds are decreased in all quadrants. Patient has generalized and nonfocal abdominal tenderness to palpation. INTEGUMENTARY: No rash or other significant dermatologic conditions noted. HEMATOLOGIC: No ecchymosis or petechiae. PSYCHIATRIC: Positive affect. NEUROLOGIC: No focal neurologic deficits noted. Course Course Patient history and physical exam were performed. Dr. Marquez's physician guest services assistant did come to the emergency department to evaluate the patient, and indicated that they would be admitting the patient. Please see Dr. Marquez's dictation for further treatment and final disposition. The patient refused any analgesics or antiemetics prior to transfer of care to the surgery service. I did review her labs as well. Medical Decision Making Medical Records Attestation: I reviewed the patient's medical records. Home Medications was personally reviewed by me Laboratory Data Attestation: I reviewed the patient's lab results. MDM Narrative See ED Course section for further details of today's visit. The patient presents for direct admission by Dr. Marquez for exploratory surgery, with recent history of small bowel obstruction. The patient was referred directly from his office. The patient denies any significant discomfort on my exam, and refused any analgesics or antiemetics. Impression Acute generalized abdominal pain, History of small bowel obstruction Discharge Plan Visit Data Chief Complaint: GI Assessment Stated Complaint: DOC REF, ADMIT, EXPLORE SURGERY, BOWEL OBSTRUCTION ED Provider: Mauri Marquez Discharge Problem: Acute generalized abdominal pain, History of small bowel obstruction Forms Stand Alone Forms: My [facility] [place] Prescriptions Prescriptions: No Action calcium carbonate-vitamin D3 [Calcium 500 + D] 500 mg(1,250mg) -200 unit tablet 1 tab PO QAM Qty: 90 1RF Hold Instructions: Resume on 11/04/23. simvastatin 10 mg tablet 10 mg PO HS Qty: 90 3RF citalopram 20 mg tablet 20 mg PO QAM Qty: 90 3RF spironolactone 25 mg tablet 12.5 mg PO DAILY Qty: 90 3RF cholecalciferol (vitamin D3) 2,000 unit capsule 2,000 units PO DAILY Hold Instructions: Resume on 11/04/23. hold until discussed in follow up polyethylene glycol 3350 [Miralax] 17 gram/dose powder 17 gm PO DAILY omeprazole 40 mg capsule,delayed release(DR/EC) 40 mg PO QAM Rx Instructions: TAKE 1 CAPSULE BY MOUTH DAILY. Referrals Referrals: Diana Webster CRNP [Primary Care Provider] -
[2023-11-16] MEDS: SODIUM CHLORIDE 0.9% 1,000 ML IV STA (16:48)
[2023-11-16 16:59] LABS: Basophils # (auto) 0.12 K/uL (0.00-0.20); Basophils % (auto) 1.3 %; Eosinophils # (auto) 0.21 K/uL (0.00-0.50); Eosinophils % (auto) 2.2 %; Hematocrit (blood only) 45.8 % (37.0-47.0); Hemoglobin 14.4 g/dl (12.0-16.0); Immature Granulocytes # (auto) 0.05 K/uL (0.01-0.20); Immature Granulocytes % (auto) 0.5 %; Lymphocytes # (auto) 2.79 K/uL (1.20-3.40); Lymphocytes % (auto) 29.2 %; Mean Corpuscular Hemoglobin 24.3 pg (25.0-34.0); Mean Corpuscular Hgb Conc 31.4 g/dL (32.0-36.0); Mean Corpuscular Volume 77.4 fL (80.0-100.0); Mean Platelet Volume 8.7 fL (9.4-12.4); Monocytes # (auto) 0.76 K/uL (0.11-0.59); Neutrophils # (auto) 5.61 K/uL (1.40-6.50); Neutrophils % (auto) 58.8 %; Platelet Count 479 K/uL (130-400); RDW Coefficient of Variation 17.6 % (11.5-14.5); RDW Standard Deviation 45.5 fL (36.4-46.3); Red Blood Count 5.92 M/uL (4.20-5.40); White Blood Count 9.54 K/ul (4.8-10.8)
[2023-11-16 17:40] LABS: Albumin Globulin Ratio 1.7 (0.9-2); Albumin Level 4.6 gm/dl (3.4-5.0); BUN Creatinine Ratio 14.4 (10-20); Bilirubin,Total 0.7 mg/dl (0.2-1.0); Est GFR (African American) 70.5 ml/min; Est GFR (Non-African American) 60.9 ml/min; Globulin 2.7 gm/dl (2.5-4.0); Potassium 4.1 mmol/L (3.5-5.1); Total Protein 7.3 gm/dl (6.0-8.3)
[2023-11-17] MEDS ORDERED: MoRPHine SULFATE 2 MG/ML CARP IV PRN (01:43)
[2023-11-17] MEDS ORDERED: ONDANSETRON INJ 2 MG/ML 2 ML VIAL IV PRN (01:43)
[2023-11-17] MEDS: SODIUM CHLORIDE 0.9% 1,000 ML IV SCH (01:54)
[2023-11-17 02:08] LABS: Appearance Urine Clear (Clear); Bacteria Urine Automated Negative (Negative); Bilirubin Urine Negative (Negative); Blood Urine Negative (Negative); Cast Urine Automated 0 /lpf (0-5); Color Urine Yellow; Epithelial Cell Urine Auto >30 /lpf (0-5); Glucose Urine UA Negative (Negative); Ketones Urine Negative (Negative); Leukocyte Esterase Urine 1+ (Negative); Nitrite Urine Negative (Negative); Protein Urine Negative (Negative); RBC Urine Automated 0-4 /hpf (0-4); Specific Gravity Urine 1.015 (1.000-1.030); Urobilinogen Urine Negative (Negative); pH Urine 6.5 (4.5-7.5)
--- NOTE | 2023-11-17 06:29 | History & Physical Bridge Note ---
Date of Service November 17, 2023 History & Physical Bridge Note I have examined the patient, reviewed the History & Physical and in the interval since the performance of the History & Physical I have noted the following changes of clinical significance: no changes noted no major issues since last seen no nausea no flatus or bm abd pos guarding no rebound tenderness all question answered will get op permit in preop area
[2023-11-17 07:53] LABS: Basophils % (auto) 1.4 %; Eosinophils % (auto) 2.7 %; Hematocrit (blood only) 39.3 % (37.0-47.0); Hemoglobin 12.5 g/dl (12.0-16.0); Immature Granulocytes # (auto) 0.04 K/uL (0.01-0.20); Immature Granulocytes % (auto) 0.5 %; Lymphocytes # (auto) 2.41 K/uL (1.20-3.40); Lymphocytes % (auto) 32.8 %; Mean Corpuscular Hemoglobin 24.7 pg (25.0-34.0); Mean Corpuscular Hgb Conc 31.8 g/dL (32.0-36.0); Mean Corpuscular Volume 77.5 fL (80.0-100.0); Mean Platelet Volume 8.8 fL (9.4-12.4); Monocytes # (auto) 0.61 K/uL (0.11-0.59); Monocytes % (auto) 8.3 %; Neutrophils # (auto) 3.99 K/uL (1.40-6.50); Neutrophils % (auto) 54.3 %; Platelet Count 392 K/uL (130-400); RDW Coefficient of Variation 16.6 % (11.5-14.5); RDW Standard Deviation 45.9 fL (36.4-46.3); Red Blood Count 5.07 M/uL (4.20-5.40); White Blood Count 7.35 K/ul (4.8-10.8)
[2023-11-17 08:06] LABS: BUN Creatinine Ratio 13.3 (10-20); Creatinine Clr Calc Pharmacy 72.9 ml/min; Est GFR (African American) 77.2 ml/min; Est GFR (Non-African American) 66.6 ml/min; Potassium 3.9 mmol/L (3.5-5.1)
[2023-11-17] MEDS: CITALOPRAM 20 MG TAB PO SCH (08:58)
[2023-11-17 09:31] LABS: Partial Thromboplastin Ratio 1.1; Partial Thromboplastin Time 32 Seconds (21-31); Prothrombin Time 10.7 Seconds (9.0-12.0)
[2023-11-17] MEDS: LACTATED RINGER'S 1,000 ML IV SCH (09:52)
--- NOTE | 2023-11-17 10:01 | Anesthesiology Consultation ---
Date of Service November 17, 2023 Assessment & Plan Chart Review Chart Review: Acceptable Risk for Surgery and Patient NOT seen in Pre Admission Testing Consults Requested none ASA ASA3 Proposed Anesthesia Anesthesia Type: General Risk / Benefits Reviewed With: PT / POA / Parent / Guardian, Accepts Plan and Informed Consent Obtained History Surgery Operation Date: 11/17/23 10:20 Proposed Procedures p Diagnostic Laparoscopy, Possible Bowel Resection, Possible Open - Mauri Marquez MD, FACS Height/Weight Height: 5 ft 7 in Weight: 95.4 kg Allergies Allergy/AdvReac Type Severity Reaction Status Date / Time lisinopril AdvReac Unknown Cough Verified 11/16/23 15:04 Medications Home Medications Medication Instructions Recorded Confirmed Last Taken cholecalciferol (vitamin D3) 50 2,000 units PO DAILY 03/16/19 11/16/23 10/27/23 mcg (2,000 unit) capsule polyethylene glycol 3350 17 17 gm PO DAILY 06/05/19 11/16/23 10/27/23 gram/dose oral powder (Miralax) calcium carbonate 500 mg-vitamin 1 tab PO QAM #90 tabs 05/20/20 11/16/23 10/27/23 D3 5 mcg (200 unit) tablet (Calcium 500 + D) citalopram 20 mg tablet 20 mg PO QAM #90 tabs 07/13/23 11/16/23 10/27/23 simvastatin 10 mg tablet 10 mg PO HS #90 tabs 07/13/23 11/16/23 10/27/23 omeprazole 40 mg capsule,delayed 40 mg PO QAM 10/28/23 11/16/23 10/27/23 release spironolactone 25 mg tablet 12.5 mg (1/2 x 25 mg) PO DAILY #90 11/01/23 11/16/23 Unknown tabs meloxicam 15 mg tablet 15 mg PO DAILY 11/16/23 11/16/23 Unknown Active Medications Generic Name Dose Route Start Last Admin Trade Name Freq PRN Reason Stop Dose Admin Citalopram Hydrobromide 20 mg 11/17/23 09:00 11/17/23 08:58 Citalopram 20 Mg Tab PO 12/17/23 08:59 Not Given QAM SERAFIN Sodium Chloride 1,000 mls @ 100 mls/hr 11/17/23 01:43 11/17/23 01:54 Nss IV 12/17/23 01:42 100 mls/hr .Q10H SERAFIN Administration Lactated Ringer's 1,000 mls @ 15 mls/hr 11/17/23 10:00 11/17/23 09:52 Lr IV 12/17/23 09:59 15 mls/hr .Q24H SERAFIN Administration NPO Date Last Intake of Fluids: 11/16/23 Time Last Intake of Fluids: 11:00 Date Last Intake of Solids: 11/16/23 Time Last Intake of Solids: 11:00 Past Medical History Medical History Heart murmur COVID-19 virus infection Tear of medial meniscus of right knee Abnormal abdominal CT scan Small bowel obstruction Hiatal hernia History of claustrophobia Cervical stenosis of spinal canal Osteoarthritis Exercise / Class Metabolic Activity II 4-5 Yardwork/Stairs/Walk up hill Past Family History Family History Mother Hypertension Father Hypertension Aunt Cancer Maternal Aunt, Liver CA Other COPD (chronic obstructive pulmonary disease) Coronary heart disease Depression Dyslipidemia Heart disease Denies family history of Ovarian cancer Breast cancer Colorectal cancer Past Surgical History Surgical History H/O knee surgery x 2, not replacements History of neck surgery Fusion of spine CERVICAL History of repair of rotator cuff RT History of colonoscopy History of parathyroidectomy PARTIAL History of tooth extraction Past Anesthesia History No Hx of Anesthesia Complications and No Family Hx of Anesthesia Complications History of PONV No Hx of PONV and No Hx of Motion Sickness Social History Smoking Status: Never smoker Do You Dip or Chew Tobacco: No Hx Alcohol Use: No Hx Substance Use: No substance use type: does not use Physical Exam Vital Signs Last Vital Signs Temp 36.8 C 11/17/23 09:39 Pulse 69 11/17/23 09:39 Resp 20 11/17/23 09:39 BP 160/86 H 11/17/23 09:39 Pulse Ox 95 11/17/23 09:39 O2 Del Method Room Air 11/17/23 09:39 Constitutional + obese; no acute distress ENMT Mouth: no dentition abnormality Thyromental Distance: < 3.5 Finger Breadths Mallampati Class: II Neck normal visual inspection and trachea midline; neck extension not limited Respiratory normal respiratory effort Auscultation: lungs clear to auscultation bilaterally Cardiovascular Rate/Rhythm: regular rate and regular rhythm Heart Sounds: no murmur Vessels: no carotid bruit Musculoskeletal Spine: normal cervical ROM and no pain with cervical ROM Extremities: extremities normal to inspection; full ROM of extremities Neurologic moves all extremities Motor/Sensory: no sensory deficit Psychiatric Orientation: alert and oriented x 3 Testing Laboratory Results 11/17/23 07:01 11/17/23 07:01 PT 10.7 Seconds (9.0-12.0) 11/17/23 07:01 INR 1.0 (0.9-1.1) 11/17/23 07:01 APTT 32 Seconds (21-31) H 11/17/23 07:01 Urine Color Yellow 11/17/23 01:50 Urine Appearance Clear (Clear) 11/17/23 01:50 Urine pH 6.5 (4.5-7.5) 11/17/23 01:50 Ur Specific [place] 1.015 (1.000-1.030) 11/17/23 01:50 Urine Protein Negative (Negative) 11/17/23 01:50 Urine Glucose (UA) Negative (Negative) 11/17/23 01:50 Urine Ketones Negative (Negative) 11/17/23 01:50 Urine Nitrite Negative (Negative) 11/17/23 01:50 Ur Leukocyte Esterase 1+ (Negative) H 11/17/23 01:50 Urine WBC (Auto) 1-5 /hpf (0-5) 11/17/23 01:50 Urine RBC (Auto) 0-4 /hpf (0-4) 11/17/23 01:50 U Hyaline Cast (Auto) 0 /lpf (0-5) 11/17/23 01:50 U Epithel Cells (Auto) >30 /lpf (0-5) H 11/17/23 01:50 Urine Bacteria (Auto) Negative (Negative) 11/17/23 01:50 Electrocardiogram Date: 10/28/23 Findings: + NSR @ (@ 73) and + NSST changes Chest X-Ray Date: 10/28/23 Findings: + NAD Echocardiogram Date: 10/31/23 EF: 60% LV Function: normal RWMA: + none Valvular Disease: + no significant valvular disease
[2023-11-17] MEDS ORDERED: FLUMAZENIL 0.1 MG/1 ML 10 ML VIAL IV PRN (10:31)
[2023-11-17] MEDS ORDERED: ePHEDrine sulfate 50 MG/ML AMP IV PRN (10:31)
[2023-11-17] MEDS ORDERED: ATROPINE SULFATE 0.1 MG/ML 10ML SYR IV PRN (10:31)
[2023-11-17] MEDS ORDERED: NALOXONE HCL 0.4 MG/1 ML VIAL/CARP IV PRN (10:31)
[2023-11-17] MEDS ORDERED: LABETALOL HCL IV 5 MG/ML 20ML IV PRN (10:31)
[2023-11-17] MEDS ORDERED: PROMETHAZINE HCL 6.25 MG in SODIUM CHLORIDE 0.9% 50 ML IV PRN (10:31)
[2023-11-17] MEDS ORDERED: PROPOFOL IV EMULSION 10 MG/ML 20 ML VIAL IV ONE (10:36)
[2023-11-17] MEDS ORDERED: fentaNYL citrate PF 100 MCG/2 ML VIAL ONE ×2 (10:38→12:00)
[2023-11-17] MEDS ORDERED: MIDAZOLAM HCL 1 MG/ML 2ML VIAL ONE (10:39)
[2023-11-17] MEDS: cefOXitin 2,000 MG in DEXTROSE 5 % MINI-B 50 ML IV ONE (11:00)
[2023-11-17] MEDS ORDERED: cefOXitin SOD 1,000 MG VIAL ONE (11:02)
[2023-11-17] MEDS ORDERED: CISATRACURIUM BESYLATE IV SOLN 2 MG/ML 10 ML VIAL IV ONE ×2 (11:04→12:34)
[2023-11-17] MEDS ORDERED: SUCCINYLCHOLINE 100MG/5ML SYR IV ONE (11:05)
[2023-11-17] MEDS ORDERED: GLYCOPYRROLATE 0.2 MG/ML VIAL ONE ×2 (11:47→13:24)
[2023-11-17] MEDS ORDERED: NEOSTIGMINE METHYLSULFATE 1 MG/ML 10ML VIAL ONE (11:48)
[2023-11-17] MEDS ORDERED: ePHEDrine sulfate 50 MG/5 ML SYR ONE (12:28)
--- NOTE | 2023-11-17 13:17 | Post Operative Brief Note ---
Immediate Post Op Note v1 Date of Surgery November 17, 2023 Pre & Post Diagnosis Operation Date: 11/17/23 10:20 Pre-Op Diagnosis: Small bowel obstruction I identified the patient and participated in the time-out.: Yes Procedure Operation Date: 11/17/23 10:20 Actual Procedures p Diagnostic Laparoscopy, Converted to Exploratory Laparotomy(Not Applicable) - Mauri Marquez MD, FACS Surgeon Mauri Marquez MD, FACS Developmental Training Counselor Jasmin Sparks Estimated Blood Loss 35 Findings Consistent with Post-Op Diagnosis
[2023-11-17] MEDS: BUPIVACAINE 0.5 % 5 MG/1 ML MPF 30ML VIAL ONE (13:23)
--- NOTE | 2023-11-17 13:33 | Operative Report ---
PG Post Operative Report Pre & Post Diagnosis Operation Date: 11/17/23 10:20 Pre-Op Diagnosis: Small bowel obstruction Post-Op Diagnosis: Small bowel obstruction, Enteritis, possible Crohn's Disease I identified the patient and participated in the time-out.: Yes Procedure Operation Date: 11/17/23 10:20 Actual Procedures p Diagnostic Laparoscopy, Laparotomy, Resection of Terminal Ileum and Cecum(Not Applicable) - Mauri Marquez MD, FACS Indication for surgery recurrent episodes of bowel obstruction since 2019 that was conservatively managed and will recur every couple years with study to her including an upper GI with small bowel follow-through since the patient had not had any previous abdominal surgery and there is seem to be a consistent area in the small bowel towards right lower quadrant that may have been the etiology of the obstruction the patient was here approximately 3 weeks ago treated conservatively again she followed up in our office yesterday complaining of inability to move his bowels nauseated and bloating felt there is drastically something wrong with her therefore we admitted her and recommend that diagnostic laparoscopy possible laparotomy since we had plans in the last admission that if she had any recurrent symptoms we would recommend laparoscopy etc. The patient was brought into the operating theater general trach anesthesia the abdomen was prepped Betadine scrub and solution properly draped systemic antibiotics on board a timeout was had patient identified made a small incision supraumbilically sufficient to accommodate a Veress needle followed by 5 mm trocar point of entry specter no injury identified the previously appreciated and seen the omentum which was pristine there was no evidence of suspicious lesions the peritoneal cavity was free of any fluid there is no fluid appreciated down the pelvis at this point we placed a 5 mm right upper quadrant trocar and a 5 mm left flank trocar to be able to see if we can identify the point of obstruction we started in the right lower quadrant limited alleviating the cecum and working back to terminal ileum appeared free of any distention and as we were continuously backwards with an area of the likely proximal jejunum there was significant hyperemic there was no evidence of any fat engorgement on the antimesenteric surface of the terminal ileum suspicious for an inflammatory bowel disease but as we continued more proximal the bowel was a little bit more distended but no definitive transition point was appreciated there were no adhesions identified there was no evidence of any torsion at this point I elected to converted to an open procedure so we can palpate this small bowel in total which we did by making an incision around the umbilical area sufficient to enter the abdomen and we were able to palpate the from the ligament of Treitz further distally to the area there was quite a hyperemic but there was no evidence of any extraluminal or pathology and there was no evidence of any fat engorgement as we continued down towards the distal jejunum and terminal ileum we found that the tissue there was very friable in fact little traction on the mesentery which causes some a tear the tissue itself was not edematous but stated very friable we did not see any evidence of any Meckel's diverticulum at this point we wanted to check towards the cecal area in the distal terminal ileum and as we were mobilizing this we entered the mesentery approximately 4 inches from the ileocecal valve the opening I tried to repair in order not to devascularize the segment which initially appeared that we were successful at this point I went on proximal to that the name wanting to take a biopsy of the small bowel which we did by using silk sutures elevating the small bowel approximately a foot and a half from the ileocecal valve taking a piece of the small bowel then closed in the enterotomy with interrupted 3-0 silk 2 layers we then went back and looked at the area that we initially had entered the mesenteric and the intestine at that area Compromised bluish in nature therefore elected at this point that probably best avenue would be to resect that area in the cecum since we were close to the ileocecal valve we mobilized the cecum brought up onto the field used a REBEKAH 60 divide the cecum distal to the ileocecal valve for approximately 10 cm then we used another load of REBEKAH to resect the terminal ileum well away from the ileocecal valve probably a foot encompassing areas that likely if anything would have an enteritis although there was very little fat engorgement to be suspicious of acute active Crohn's disease the 2 ends of the stapler were then oversewn with 3-0 interrupted silk sutures the mesentery that had been divided and ligated it was then closed with interrupted 3-0 silk sutures and then we performed a [id number] anastomosis by first and reinforcing the staple line on the cecum and the terminal ileum with 2-0 silk outer layer 3-0 chromic in a layer anastomosis was checked for patency was adequate viable we make sure that the corner stitches were had without any tension the mesentery was closed properly without any deficit the issue tissue was returned to the abdomen and the abdomen was irrigated by first placing the patient in reverse Trendelenburg and suction at the wound was then closed after we then reinspected the abdomen and of note in the left upper quadrant as reinspected the area I elevated the omentum and there seem to be a small opening in the omentum mom not sure if this was a related to anything associated with the pathology that was going on since this particular opening was incised above 2 cm and it was very lateral to the area where the small bowel was suspicious possibility of transition zone but having said we divided the omentum ligated avoiding any further opening the wound was closed with number of 2 previous starting 1 cephalad 1 code at time in the middle quarter inch [place] subcu navin for skin edges dressing was applied procedure was tolerated well by the patient estimate blood loss 35 cc AddendumC.Alisa OLIVARES was present throughout the procedure and helped the retraction exposure wound closure Spoke with [id number] Dominique at [phone] Surgeon Mauri Marquez MD, FACS Studio Assistant Jasmin Sparks Estimated Blood Loss 35 Findings Consistent with Post-Op Diagnosis Distal small bowel terminal ileum hyperemic 1 no kannan fat engorgement in the antimesentery service but the area very friable as far as the mesentery itself Specimens Terminal ileum and cecum Drains Quarter-inch [place] subcu Complications None Indications Recurrent bowel obstruction Description of Procedure nerda I attest to the content of the Intraoperative Record and any orders documented therein. Any exceptions are noted below.
[2023-11-17] MEDS: fentaNYL citrate PF 100 MCG/2 ML VIAL IV PRN (13:38)
[2023-11-17] MEDS: HYDROmorphone INJ 1 MG/ML SYRINGE IV PRN (13:54)
[2023-11-17] MEDS: HYDROmorphone INJ 0.5 MG/0.5 ML SYR IV PRN (14:12)
[2023-11-17] MEDS: KETOROLAC TROMETHAMINE 15 MG/ML VIAL IV ONE (14:14)
[2023-11-17] MEDS: KETOROLAC 30 MG/ML VIAL ONE (14:25)
--- NOTE | 2023-11-17 14:51 | Anesthesiology Progress Note ---
Date of Service November 17, 2023 Anesthesia Post Procedure Vital Signs Vital Signs: Temp Pulse Pulse Pulse Resp BP BP 11/17/23 14:40 75 10 L 118/55 L 11/17/23 14:30 90 17 99/63 L 11/17/23 14:20 70 14 125/56 L 11/17/23 14:10 79 22 131/82 11/17/23 14:00 79 17 116/65 11/17/23 13:50 84 19 148/74 H 11/17/23 13:40 84 20 155/73 H 11/17/23 13:33 36.0 C L 92 H 16 167/87 H 11/17/23 09:39 36.8 C 69 20 160/86 H 11/17/23 08:05 11/17/23 07:37 36.4 C L 67 18 158/72 H 11/17/23 03:13 36.7 C 84 16 157/71 H 11/17/23 01:58 11/17/23 01:57 36.4 C L 80 16 160/92 H 11/16/23 21:54 163/92 H 11/16/23 21:54 75 14 11/16/23 21:04 73 11/16/23 21:00 70 16 11/16/23 20:00 79 15 11/16/23 20:00 169/90 H 11/16/23 19:00 185/88 H 11/16/23 19:00 76 17 11/16/23 18:18 176/96 H 11/16/23 18:18 81 13 11/16/23 17:30 171/105 H 11/16/23 17:30 74 16 11/16/23 17:20 72 11/16/23 17:01 76 17 11/16/23 17:00 168/82 H 11/16/23 15:59 36.4 C L 85 18 161/87 H Pulse Ox O2 Del Method O2 Flow Rate 11/17/23 14:40 95 Nasal Cannula 3 11/17/23 14:30 96 Oxymask 4 11/17/23 14:20 96 Oxymask 4 11/17/23 14:10 96 Oxymask 4 11/17/23 14:00 96 Oxymask 4 11/17/23 13:50 97 Oxymask 4 11/17/23 13:40 96 Oxymask 6 11/17/23 13:33 99 Oxymask 6 11/17/23 09:39 95 Room Air 11/17/23 08:05 Room Air 11/17/23 07:37 94 Room Air 11/17/23 03:13 98 Room Air 11/17/23 01:58 Room Air 11/17/23 01:57 96 Room Air 11/16/23 21:54 11/16/23 21:54 94 11/16/23 21:04 11/16/23 21:00 94 11/16/23 20:00 94 11/16/23 20:00 11/16/23 19:00 11/16/23 19:00 93 11/16/23 18:18 11/16/23 18:18 11/16/23 17:30 11/16/23 17:30 97 11/16/23 17:20 11/16/23 17:01 93 11/16/23 17:00 11/16/23 15:59 98 Room Air Pain Intensity Abdomen: Pain Intensity: 8 Transfer of Care Handoff Completed per policy Notes Mental Status: alert / awake / arousable Patient Amnestic to Procedure: Yes Nausea / Vomiting: adequately controlled Pain: adequately controlled Airway Patency, RR, SpO2: stable & adequate BP & HR: stable & adequate Hydration State: stable & adequate Anesthetic Complications: no major complications apparent
[2023-11-17] MEDS ORDERED: oxyCODONE HCL IR 5 MG TAB (IMMEDIATE RELEASE) PO PRN (15:12)
[2023-11-17] MEDS: HYDROmorphone INJ 1 MG/ML SYRINGE ONE (15:25)
[2023-11-17] MEDS: cefOXitin 2,000 MG in DEXTROSE 5 % MINI-B 50 ML IV SCH (17:31)
[2023-11-17] MEDS: MoRPHine SULFATE 4 MG/ML 1 ML CARP\\VIAL IV PRN (18:37)
[2023-11-17] MEDS: oxyCODONE HCL IR 5 MG TAB (IMMEDIATE RELEASE) PO PRN (19:42)
[2023-11-17] MEDS: ACETAMINOPHEN 1,000 MG/100 ML VIAL IV PRN (22:06)
[2023-11-18 07:01] LABS: Basophils # (auto) 0.07 K/uL (0.00-0.20); Basophils % (auto) 0.5 %; Eosinophils # (auto) 0.03 K/uL (0.00-0.50); Eosinophils % (auto) 0.2 %; Hematocrit (blood only) 37.4 % (37.0-47.0); Hemoglobin 11.8 g/dl (12.0-16.0); Immature Granulocytes # (auto) 0.06 K/uL (0.01-0.20); Immature Granulocytes % (auto) 0.4 %; Lymphocytes # (auto) 1.58 K/uL (1.20-3.40); Lymphocytes % (auto) 10.4 %; Mean Corpuscular Hemoglobin 24.9 pg (25.0-34.0); Mean Corpuscular Hgb Conc 31.6 g/dL (32.0-36.0); Mean Corpuscular Volume 78.9 fL (80.0-100.0); Mean Platelet Volume 9.1 fL (9.4-12.4); Monocytes % (auto) 7.2 %; Neutrophils # (auto) 12.42 K/uL (1.40-6.50); Neutrophils % (auto) 81.3 %; Platelet Count 438 K/uL (130-400); RDW Coefficient of Variation 16.9 % (11.5-14.5); RDW Standard Deviation 47.6 fL (36.4-46.3); Red Blood Count 4.74 M/uL (4.20-5.40); White Blood Count 15.26 K/ul (4.8-10.8)
[2023-11-18 07:21] LABS: BUN Creatinine Ratio 12.6 (10-20); Calcium 9.1 mg/dl (8.6-10.3); Creatinine Clr Calc Pharmacy 69.1 ml/min; Est GFR (African American) 72.3 ml/min; Est GFR (Non-African American) 62.4 ml/min
[2023-11-18] MEDS ORDERED: HYDROmorphone INJ 0.5 MG/0.5 ML SYR IV PRN (07:47)
--- NOTE | 2023-11-18 07:57 | Surgery Progress Note ---
Date of Service November 18, 2023 Assessment & Plan (1) History of small bowel obstruction: Plan: POD 1 Diagnostic Laparoscopy, Laparotomy, and Resection of Terminal Ileum and Cecum with Dr. Marquez Reports cannot take in a deep breath from pain C/o abd pain, changed morphine to Dilaudid , Changed IV Tylenol to Scheduled has been tolerating clears, will keep on until better return of bowel function. encouraged OOB , is walking to toilet for voiding Start incentive spirometry WBC 15 on p/o Mefoxin for 24h will monitor Electrolytes wnl abd dressing CDI try to wean off O2 Admission and Anticipated Discharge Date Admission Date: November 16, 2023 Supervising Physician Co-Signing Physician Notes POD #1 Patient is ambulating from the bathroom to the bed when I walked in feels uncomfortable feeling of abdominal pain in the supine position the pain had subsided the abdomen as expected guarding in the right lower quadrant somewhat distended dressing and the incision was removed Xeroform the incision was intact there is no cellulitis the [place] drain still in the subcu Any nausea as expected has not had any GI function yet Operative findings were discussed the patient including the fact that the only abnormality we saw was some hyperemic change towards the distal small bowel there was no evidence of any Meckel's and that further milking the small bowel there was no evidence of any intraluminal filling defects by palpation no definitive transition stone was appreciated on inspection however attention was turned more towards right lower quadrant and she has significant friability of the mesentery going towards the terminal ileum were just touching at the low pressure it fell apart we tried repairing the defect but eventually with compromise the small bowel distal to it approxi-10 cm from the ileocecal valve for at this point we elected to elevate the cecum and take out part of the cecum along with the appendix part of the small bowel then reconnected at Mention to patient that it may take a few days until she starts having her GI function there will be a surgeon check in on her for the weekend (Dr. Soliz my partner on-call I discussed the case with him) Will add subcu heparin and increase her activity as tolerated Subjective Pt reports abd pain 8/10, not feeling well from pain on Clear liquids tolerating Denies N/V , Fever, chills , flatus OOB to toilet Review of Systems Constitutional: no fever and no chills Ear, Nose, Mouth, Throat: + dry mouth Respiratory: + dyspnea (taking in a deep breath is pa inful to abdomen) Cardiovascular: no chest pain Gastrointestinal: + abdominal pain and + belching; no naus ea and no vomiting Genitourinary: no dysuria Neurologic: no confusion Physical Exam Physical Exam: alert oriented pleasant Constitutional: cooperative and comfortable; no acute distress Respiratory: normal respiratory effort and able to speak in complete sentences; no respiratory distress on 2L NC Cardiovascular: Rate/Rhythm: + tachycardic (95) Gastrointestinal (Abdomen): Inspection/Auscultation: + abdomen distended and + abdominal surgical incision (dressing CDI) Percussion/Palpation: + abdomen tender and abdomen soft Results & Data Vital Signs (Past 12 Hours) Vital Signs Temp Pulse Resp BP Pulse Ox O2 Del Method O2 Flow Rate 11/18/23 03:54 97.9 F 95 H 20 143/81 H 94 Nasal Cannula 3 11/17/23 23:30 97.7 F 107 H 18 155/80 H 93 Nasal Cannula 3 11/17/23 19:52 97.5 F L 101 H 16 135/81 92 Room Air Results Complete Blood Count Results: RBC 4.74 M/uL (4.20-5.40) 11/18/23 WBC 15.26 K/ul (4.8-10.8) H 11/18/23 Hgb 11.8 g/dl (12.0-16.0) L 11/18/23 Hct 37.4 % (37.0-47.0) 11/18/23 Plt Count 438 K/uL (130-400) H 11/18/23 Results CMP Results: Na 136 mmol/L (136-145) 11/18/23 K 4.0 mmol/L (3.5-5.1) 11/18/23 Cl 105 mmol/L (98-107) 11/18/23 CO2 26 mmol/L (21-32) 11/18/23 Anion Gap 5 (3-11) 11/18/23 BUN 12 mg/dl (6-23) 11/18/23 Creatinine 0.95 mg/dl (0.6-1.2) 11/18/23 Estimated GFR ( Amer) 72.3 ml/min 11/18/23 Estimated GFR (Non-Af Amer) 62.4 ml/min 11/18/23 BUN/Creatinine Ratio 12.6 (10-20) 11/18/23 Glu 105 mg/dl (70-99(Fasting)) H 11/18/23 Ca 9.1 mg/dl (8.6-10.3) 11/18/23 Phosphorus Level 2.9 mg/dl (2.5-4.9) 10/29/23 Total Bilirubin 0.7 mg/dl (0.2-1.0) 11/16/23 Direct Bilirubin < 0.1 mg/dl (0-0.2) 03/09/18 AST 16 U/L (13-39) 11/16/23 ALT 23 U/L (7-52) 11/16/23 Alkaline Phosphatase 86 U/L (34-104) 11/16/23 TP 7.3 gm/dl (6.0-8.3) 11/16/23 Albumin 4.6 gm/dl (3.4-5.0) 11/16/23 Globulin 2.7 gm/dl (2.5-4.0) 11/16/23 Albumin/Globulin Ratio 1.7 (0.9-2) 11/16/23 PG Care Time/CCT Total # of Minutes Spent Total Time Spent with Patient: Total time spent is greater than 50% in coordination of care (as documented) at patient's floor/unit and/or counseling patient: Coding Level of Care Code 55475 Post Operative Follow-Up Diagnoses History of small bowel obstruction Z87.19
[2023-11-18] MEDS: HYDROmorphone INJ 1 MG/ML SYRINGE IV PRN (08:34)
[2023-11-18] MEDS: ACETAMINOPHEN 1,000 MG/100 ML VIAL IV SCH (08:34)
[2023-11-18] MEDS: LACTATED RINGER'S 1,000 ML IV SCH (10:37)
[2023-11-18] MEDS: HEPARIN SOD 5,000 UNIT/0.5 ML VIAL SQ SCH (15:26)
[2023-11-19 07:31] LABS: Basophils # (auto) 0.04 K/uL (0.00-0.20); Basophils % (auto) 0.4 %; Eosinophils # (auto) 0.16 K/uL (0.00-0.50); Eosinophils % (auto) 1.4 %; Hematocrit (blood only) 33.6 % (37.0-47.0); Hemoglobin 10.2 g/dl (12.0-16.0); Immature Granulocytes # (auto) 0.04 K/uL (0.01-0.20); Immature Granulocytes % (auto) 0.4 %; Lymphocytes # (auto) 1.17 K/uL (1.20-3.40); Lymphocytes % (auto) 10.4 %; Mean Corpuscular Hemoglobin 24.6 pg (25.0-34.0); Mean Corpuscular Hgb Conc 30.4 g/dL (32.0-36.0); Mean Corpuscular Volume 81.2 fL (80.0-100.0); Monocytes # (auto) 0.78 K/uL (0.11-0.59); Monocytes % (auto) 6.9 %; Neutrophils # (auto) 9.06 K/uL (1.40-6.50); Neutrophils % (auto) 80.5 %; Platelet Count 340 K/uL (130-400); RDW Standard Deviation 49.7 fL (36.4-46.3); Red Blood Count 4.14 M/uL (4.20-5.40); White Blood Count 11.25 K/ul (4.8-10.8)
[2023-11-19 07:50] LABS: BUN Creatinine Ratio 9.2 (10-20); Calcium 8.7 mg/dl (8.6-10.3); Creatinine Clr Calc Pharmacy 75.4 ml/min; Est GFR (African American) 80.5 ml/min; Est GFR (Non-African American) 69.4 ml/min; Potassium 3.8 mmol/L (3.5-5.1)
[2023-11-19] MEDS ORDERED: NALOXONE HCL 0.4 MG/1 ML VIAL/CARP IV PRN (09:25)
--- NOTE | 2023-11-19 09:38 | Surgery Progress Note ---
Date of Service November 19, 2023 Assessment & Plan (1) History of small bowel obstruction: Plan: Postoperative day #2 She is quite anxious. We will give her 1 dose of Toradol and switch her to Dilaudid to SCREENING UNIT REGISTERED NURSE which will help her exert some control. Will also give her small doses of Ativan which may help with anxiety as well as likely muscle spasm from her midline incision. Stay on clear liquids for now Admission and Anticipated Discharge Date Admission Date: November 16, 2023 Subjective Patient seen. Complaining of considerable incisional discomfort. She is stating her current pain regimen is inadequate. She is tolerating clear liquid diet although has no appetite Physical Exam Physical Exam: Alert. In moderate distress secondary to pain Her incision looks great Results & Data Vital Signs (Past 12 Hours) Vital Signs Temp Pulse Resp BP Pulse Ox O2 Del Method O2 Flow Rate 11/19/23 07:16 37.2 C 100 H 16 148/82 H 93 Nasal Cannula 2 PG Care Time/CCT Total # of Minutes Spent Total Time Spent with Patient: Total time spent is greater than 50% in coordination of care (as documented) at patient's floor/unit and/or counseling patient: Coding Level of Care Code 62742 Post Operative Follow-Up Diagnoses History of small bowel obstruction Z87.19
[2023-11-19] MEDS: D5W AND 1/2NSS + 20MEQ KCL 20 MEQ/1,000 ML BAG IV SCH (10:11)
[2023-11-19] MEDS: PANTOprazole 40 MG in SYRINGE 0 ML IV SCH (10:12)
[2023-11-19] MEDS: KETOROLAC TROMETHAMINE 15 MG/ML VIAL IV ONE (10:15)
[2023-11-19] MEDS: HYDROmorphone PCA 30 MG/30 ML IV PRN (12:57)
[2023-11-19] MEDS: SODIUM CHLORIDE 0.9% 1,000 ML IV SCH (13:30)
[2023-11-20] MEDS: LORazepam 0.5 MG in SYRINGE 0.25 ML IV PRN (06:51)
[2023-11-20 07:19] LABS: Basophils # (auto) 0.07 K/uL (0.00-0.20); Basophils % (auto) 0.8 %; Eosinophils # (auto) 0.57 K/uL (0.00-0.50); Eosinophils % (auto) 6.6 %; Hematocrit (blood only) 31.4 % (37.0-47.0); Hemoglobin 9.7 g/dl (12.0-16.0); Immature Granulocytes # (auto) 0.04 K/uL (0.01-0.20); Immature Granulocytes % (auto) 0.5 %; Lymphocytes # (auto) 1.51 K/uL (1.20-3.40); Lymphocytes % (auto) 17.6 %; Mean Corpuscular Hemoglobin 24.8 pg (25.0-34.0); Mean Corpuscular Hgb Conc 30.9 g/dL (32.0-36.0); Mean Corpuscular Volume 80.3 fL (80.0-100.0); Mean Platelet Volume 8.9 fL (9.4-12.4); Monocytes # (auto) 0.81 K/uL (0.11-0.59); Monocytes % (auto) 9.4 %; Neutrophils # (auto) 5.59 K/uL (1.40-6.50); Neutrophils % (auto) 65.1 %; Platelet Count 306 K/uL (130-400); RDW Standard Deviation 49.3 fL (36.4-46.3); Red Blood Count 3.91 M/uL (4.20-5.40); White Blood Count 8.59 K/ul (4.8-10.8)
[2023-11-20 07:36] LABS: BUN Creatinine Ratio 9.8 (10-20); Calcium 8.8 mg/dl (8.6-10.3); Est GFR (African American) 86.4 ml/min; Est GFR (Non-African American) 74.6 ml/min; Potassium 3.8 mmol/L (3.5-5.1)
[2023-11-20] MEDS ORDERED: HYDROmorphone INJ 0.5 MG/0.5 ML SYR IV PRN (08:49)
--- NOTE | 2023-11-20 08:49 | Surgery Progress Note ---
Date of Service November 20, 2023 Assessment & Plan (1) History of small bowel obstruction: Plan POD#3 exploratory laparotomy, small bowel resection WBC 8.5, Hbg 9.7 (10.2), Vitals stable, on supplemental O2 Pain was controlled yesterday after starting VOLUNTEER RECRUITMENT COORDINATOR, but issues overnight with respiration alarm sounding off and it was d/c'd She is drowsy this AM, appears she has just received Ativan. Stating pain is returning Will give another dose of Toradol, add PO oxycodone, and have PRN IV dilaudid available should she need it. Currently on standing apap Dressing was changed, incision intact with navin and keaton, no signs of infection, small amount of bloody drainage on dressing On clears, no nausea/vomiting. + flatus, consider fulls later Recommend pulmonary toilet and encourage ongoing ambulation as above. some mild hypoxia on transitional nurse...change to oral pain meds. no appetite yet...no bm/+flatus. will stay on clears for now. Admission and Anticipated Discharge Date Admission Date: November 16, 2023 Subjective Patient drowsy this AM, said they just gave her something. Says her pain was well controlled with the VOLUNTEER RECRUITMENT COORDINATOR, but was having issues with the respirations alarm overnight and it was d/c'd. Said her pain is returning, but is in and out of sleep during my conversation. She is tolerating clears without any nausea/vomiting, but in small amounts, not much appetite. Passing flatus. No BMs. Says she has been out of bed yesterday. Physical Exam Physical Exam: drowsy, arousable and communicative, but easily falls back asleep Respiratory: on supplemental O2 Gastrointestinal (Abdomen): Inspection/Auscultation: + abdominal surgical incision (c/d/i with midline navin and [place] drain, no signs of infection. ); abdomen not distended Percussion/Palpation: + abdomen tender (generalized discomfort to palpation, worse on R side) and abdomen soft small amount of bloody drainage to incision Results & Data Vital Signs (Past 12 Hours) Vital Signs Temp Pulse Pulse Resp BP Pulse Ox O2 Del Method 11/20/23 07:22 97.9 F 79 14 144/82 H 97 Nasal Cannula 11/20/23 03:13 98.2 F 75 15 127/74 97 Nasal Cannula 11/20/23 00:31 98.2 F 85 22 171/64 H 98 Nasal Cannula 11/19/23 22:35 99.1 F 101 H 16 179/81 H 93 Nasal Cannula 11/19/23 21:11 Nasal Cannula O2 Flow Rate 11/20/23 07:22 3 11/20/23 03:13 3 11/20/23 00:31 4 11/19/23 22:35 4 11/19/23 21:11 PG Care Time/CCT Total # of Minutes Spent Total Time Spent with Patient: Total time spent is greater than 50% in coordination of care (as documented) at patient's floor/unit and/or counseling patient: Coding Level of Care Code 53327 Post Operative Follow-Up Diagnoses History of small bowel obstruction Z87.19
[2023-11-20] MEDS: KETOROLAC TROMETHAMINE 15 MG/ML VIAL IV ONE (09:29)
[2023-11-20] MEDS: oxyCODONE HCL IR 5 MG TAB (IMMEDIATE RELEASE) PO PRN (10:47)
[2023-11-21] MEDS: HYDROmorphone INJ 0.5 MG/0.5 ML SYR IV PRN (00:18)
[2023-11-21 07:25] LABS: Basophils # (auto) 0.08 K/uL (0.00-0.20); Basophils % (auto) 1.2 %; Eosinophils # (auto) 0.57 K/uL (0.00-0.50); Eosinophils % (auto) 8.4 %; Hematocrit (blood only) 32.5 % (37.0-47.0); Immature Granulocytes # (auto) 0.03 K/uL (0.01-0.20); Immature Granulocytes % (auto) 0.4 %; Lymphocytes # (auto) 1.41 K/uL (1.20-3.40); Lymphocytes % (auto) 20.9 %; Mean Corpuscular Hemoglobin 24.4 pg (25.0-34.0); Mean Corpuscular Hgb Conc 30.8 g/dL (32.0-36.0); Mean Corpuscular Volume 79.3 fL (80.0-100.0); Mean Platelet Volume 9.2 fL (9.4-12.4); Monocytes # (auto) 0.61 K/uL (0.11-0.59); Neutrophils # (auto) 4.06 K/uL (1.40-6.50); Neutrophils % (auto) 60.1 %; Platelet Count 341 K/uL (130-400); RDW Coefficient of Variation 16.4 % (11.5-14.5); RDW Standard Deviation 47.2 fL (36.4-46.3); White Blood Count 6.76 K/ul (4.8-10.8)
[2023-11-21] MEDS: FUROSEMIDE INJ 20 MG/2 ML VIAL IV ONE (07:34)
[2023-11-21 07:47] LABS: Calcium 9.1 mg/dl (8.6-10.3); Creatinine Clr Calc Pharmacy 87.5 ml/min; Est GFR (African American) 96.3 ml/min; Est GFR (Non-African American) 83.1 ml/min; Potassium 3.8 mmol/L (3.5-5.1)
--- NOTE | 2023-11-21 09:19 | Surgery Progress Note ---
Date of Service November 21, 2023 Assessment & Plan (1) History of small bowel obstruction: Plan: #4 Postoperative day status post exploratory lap diagnostic laparoscopy resection of terminal ileum and cecum with primary anastomosis path report pending Will increase her diet to low fiber diet at 20 mg of Lasix and restart her on spironolactone Will reevaluate later today regarding removing the [place] drain from the subcu DC all IV analgesics Labs noted Ordered to weigh patient daily Tentative plan to discharge her tomorrow Admission and Anticipated Discharge Date Admission Date: November 16, 2023 Subjective Only complaint that she has this around the incision that hurts he states he sitting up amount of flatus nurses reported him large bowel movement she said it was just a small amount she is not nauseated she is on a full liquid diet but she would like to have some mashed potatoes Physical Exam Physical Exam: Alert coherent resting comfortably sitting in the side eating her breakfast Normal color and texture skin The abdomen without any guarding symptoms incisional tenderness noted No pedal edema blood pressure noted Results & Data Vital Signs (Past 12 Hours) Vital Signs Temp Pulse Pulse Resp BP BP Pulse Ox 11/21/23 08:13 37.2 C 80 12 189/81 H 95 11/21/23 03:32 36.8 C 78 18 177/90 H 93 11/21/23 00:22 73 173/82 H 94 11/20/23 22:46 11/20/23 22:24 36.6 C 73 18 173/81 H 96 O2 Del Method 11/21/23 08:13 Room Air 11/21/23 03:32 Room Air 11/21/23 00:22 Room Air 11/20/23 22:46 Room Air 11/20/23 22:24 Room Air
[2023-11-21] MEDS: SPIRONOLACTONE 12.5 MG TAB PO SCH (09:31)
--- NOTE | 2023-11-21 11:45 | Hospitalist Consultation ---
Date of Consultation November 21, 2023 Assessment & Plan (1) History of small bowel obstruction: Recurrent SBO s/p surgical intervention - s/p laparoscopy, laparotomy, resection of terminal ileum and cecum 11/17/23 With significant postoperative pain requiring transition to LOANS CONSULTANT however this was discontinued due to concern for respiration suppression. Surgical site without signs of overlying infection, Patient with flatus, tolerating clears was subsequently advanced to full and then low fiber diet -Surgical specimens pending, operative bowel appearance concerning for acute active Crohn's disease. 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 Whitecoat hypertension versus true hypertension above goals Last 36 hours blood pressure has been increasingly elevated, has had a few normal measurements intermittently patient reports she has had significant abdominal discomfort / in the abdomen and suspect she has a significant pain component. Does have baseline hypertension normally well-controlled on spironolactone. Labetalol x 1 given for SBP greater than 180,Oxycodone switched to scaled analgesia Suspect Multimodal both likely with some sympathetic overdrive postoperatively and with continued pain combined with underlying primary hypertension. Pain control switch to scaled oxycodone 5-10 mg every 6 hours 1 dose of labetalol given for hypertension greater than 190, may also help with sympathetic overdrive in the setting of pain Home spironolactone increased to 25 mg starting tomorrow morning, patient has history of hypokalemia; potassium is currently in the normal range Creatinine 0.78, UA added for protein analysis Last echo performed for murmur 10/2023 with EF 60 to 65%, mild aortic sclerosis, no regional wall motion abnormalities Baseline EKG 10/28/2023: Normal sinus rhythm without territorial ST/T wave ischemic changes. Low amplitude T waves are noted, potassium was 2.93.1 at that At bedside assessment no vision change, no focal deficits, no encephalopathy indicate hypertensive emergency (3) Hyperlipidemia: Hyperlipidemia Continue simvastatin on dc (4) Depression: Anxiety/depression Citalopram continued (5) GERD (gastroesophageal reflux disease): GERD Omeprazole converted to Protonix IVP while inpatient (6) Iron deficiency anemia: Transferrin saturation 12%, ferritin 9.0 on. 10/29/2023. Patient with anemia baseline ranging approximately 9.712, 10.0 on 11/20 and microcytic. Suspect combination of malabsorption with? Underlying IBD and potential losses related to such. Denies history of bleeding, melena, hematochezia, hemoptysis. Renal function is normal Patient has had difficulty with oral iron in the past, reports she tried this as a supplement not because she had a known history of anemia or deficiency but it did cause significant constipation Recommend Venofer 300 mg infusion daily up to 3 doses total Plan DVT prophylaxis: Heparin subcu Diet: Per surgical team, has been advanced to low fiber CODE STATUS: Full code Disposition: Medical/surg History of Present Illness Attending Physician: Mauri Marquez MD, FACS History of Present Illness Jennifer is a 68-year-old female with past medical history of hypertension, GERD, chronic hypokalemia, hyperlipidemia with recurrent small bowel obstructions since 2008 who underwent diagnostic laparoscopy, laparotomy, resection of terminal ileum and cecum 11/17/2023 due to recurrent SBO. We have been consulted for postoperative hypertension. Postop pain last 3 days, relatively unchanged. Pain midline and travels the the LLQ. Very sore quality 7-8/10 currently. Was down to 0/10 on the LOANS CONSULTANT and dilaudid. 5mg of oxycodone doesn't seem to bring the pain down much at all. No nausea or vomiting Just had first bowel this morning since Tuesday. BM was very loose, dark brown but not black or bloody.No pain with the bowel movement. Had a lot of gas with it +flatus No fevers chills or sweats. Does get warm and cold intermittently. Has had some night sweats a few nights ago, none in the last 2 days. No chest pain or chest pressure Feels a little tight breathing, no wheezing. No cough. No sputum production. Had a little sore throat after intrubation and had teeth pain with it 'like a muscle strain' and neck tension and hrut when swallowing. That has improved. Feeling of dyspnea worsens when laying flat. Improves with sitting up Denies leg swelling No history of asthma, COPD, or tobacco use Denies history of cardiac, pulmonary, and renal disease. +peeing normally No personal or FHX of IBD/Crohns/autoimmune disease. Endorses history of diverticulitis in a brother. Medical History: Reviewed Medications: Reviewed Surgical History: Reviewed Family history: Reviewed Allergies: Reviewed Social History: Denies hx of tobacco use Code Status: Full Code Allergies Allergy/AdvReac Type Severity Reaction Status Date / Time lisinopril AdvReac Unknown Cough Verified 11/16/23 15:04 Home Medications Medication Instructions Recorded Confirmed Type cholecalciferol (vitamin D3) 50 2,000 units PO DAILY 03/16/19 11/16/23 History mcg (2,000 unit) capsule polyethylene glycol 3350 17 17 gm PO DAILY 06/05/19 11/16/23 History gram/dose oral powder (Miralax) calcium carbonate 500 mg-vitamin 1 tab PO QAM #90 tabs 05/20/20 11/16/23 Rx D3 5 mcg (200 unit) tablet (Calcium 500 + D) citalopram 20 mg tablet 20 mg PO QAM #90 tabs 07/13/23 11/16/23 Rx simvastatin 10 mg tablet 10 mg PO HS #90 tabs 07/13/23 11/16/23 Rx omeprazole 40 mg capsule,delayed 40 mg PO QAM 10/28/23 11/16/23 History release spironolactone 25 mg tablet 12.5 mg (1/2 x 25 mg) PO DAILY #90 11/01/23 11/16/23 Rx tabs meloxicam 15 mg tablet 15 mg PO DAILY 11/16/23 11/16/23 History Patient History Medical History Heart murmur COVID-19 virus infection Tear of medial meniscus of right knee Abnormal abdominal CT scan Small bowel obstruction Hiatal hernia History of claustrophobia Cervical stenosis of spinal canal Osteoarthritis Surgical History H/O knee surgery x 2, not replacements History of neck surgery Fusion of spine CERVICAL History of repair of rotator cuff RT History of colonoscopy History of parathyroidectomy PARTIAL History of tooth extraction Family History Mother Hypertension Father Hypertension Aunt Cancer Maternal Aunt, Liver CA Other COPD (chronic obstructive pulmonary disease) Coronary heart disease Depression Dyslipidemia Heart disease Denies family history of Ovarian cancer Breast cancer Colorectal cancer Social History Smoking Status: Never smoker Second Hand Exposure: No; Do You Dip or Chew Tobacco: No; Hx Alcohol Use: No Hx Substance Use: No Preferred Language: Swiss Communication Ability: Effective Visual Impairment: Limited Hearing Ability: Normal Orthodontic Laboratory Technician Required: No Beliefs That Will Affect Care: None marital status: Current Living Situation: Spouse current occupational status: retired How many Children do You have: 2 Other Information That Helps Us Care for You: No Feels Safe at Home: Yes Safety Concerns: Feels Safe At This Time Childhood Exposure to Second-Hand Smoke: Yes Diet: regular caffeine: Yes during the past year weight has: remained stable Dental Care, Regularly: Yes Physical Activity Frequency: Daily Seatbelt Use: always Sunscreen Use: No Assistive Devices: None Physical Exam Physical Exam: General: A&Ox3. NAD. Cooperative. HEENT: Atraumatic, normocephalic. PERLAA. Pulm: CTAB A&P. -wheezes, -rales, -rhonchi. Symmetrical chest rise. No increased work of breathing. No respiratory distress. Cardiac: RRR, -mrg. Radial pulses intact and symmetrical. Abdominal: RLQ and midline abd TTP. Surgical dressing C/D/I. RLQ minimally tender, no guarding/rebound Ext: warm, dry. No pitting edema, mild soft tissue swelling. Results & Data Results & Data Vital Signs (Past 12 Hours) Vital Signs Temp Pulse Pulse Resp BP BP Pulse Ox 11/21/23 10:58 197/81 H 11/21/23 08:13 37.2 C 80 12 189/81 H 95 11/21/23 03:32 36.8 C 78 18 177/90 H 93 11/21/23 00:22 73 173/82 H 94 O2 Del Method 11/21/23 10:58 11/21/23 08:13 Room Air 11/21/23 03:32 Room Air 11/21/23 00:22 Room Air PG Care Time/CCT Total # of Minutes Spent Total Time Spent with Patient: Total time spent is greater than 50% in coordination of care (as documented) at patient's floor/unit and/or counseling patient: Coding Level of Care Code 38782 IN/OBS CONSULT LVL 4,60M Diagnoses History of small bowel obstruction Z87.19 Hypertension I10 Hyperlipidemia E78.5 Depression F32.9 GERD (gastroesophageal reflux disease) K21.9 Iron deficiency anemia D50.9
[2023-11-21 12:55] LABS: Appearance Urine Clear (Clear); Bilirubin Urine Negative (Negative); Blood Urine Negative (Negative); Color Urine Yellow; Glucose Urine UA Negative (Negative); Ketones Urine Negative (Negative); Leukocyte Esterase Urine Negative (Negative); Nitrite Urine Negative (Negative); Protein Urine Negative (Negative); Specific Gravity Urine 1.007 (1.000-1.030); Urobilinogen Urine Negative (Negative)
[2023-11-21] MEDS: LABETALOL HCL 100 MG TAB PO ONE (14:07)
[2023-11-21] MEDS: oxyCODONE HCL IR 5 MG TAB (IMMEDIATE RELEASE) PO PRN (14:59)
[2023-11-21] MEDS: HYDROmorphone INJ 0.5 MG/0.5 ML SYR IV STA (16:00)
--- NOTE | 2023-11-22 07:20 | Surgery Progress Note ---
Date of Service November 22, 2023 Assessment & Plan (1) History of small bowel obstruction: Plan: 5th POD path report discussed with pt ready for d/c today check with medical service regarding hepertension meds rto 1 week remove drain prior to d/c no driving for one week no lifting greater than 10 lbs until seen Admission and Anticipated Discharge Date Admission Date: November 16, 2023 Subjective no complaints tolerated diet low fiber and bowels moving pain better Physical Exam Constitutional: alert coherent comfortable abd benign incision with minimal bloody drainage(pt on sub cut heparin) some abd wall ecchymosis from injection Results & Data Vital Signs (Past 12 Hours) Vital Signs Temp Pulse Resp BP Pulse Ox O2 Del Method 11/21/23 22:07 37.3 C 96 H 20 182/83 H 95 Room Air
[2023-11-22 07:43] LABS: Basophils # (auto) 0.06 K/uL (0.00-0.20); Basophils % (auto) 0.5 %; Eosinophils # (auto) 0.19 K/uL (0.00-0.50); Eosinophils % (auto) 1.7 %; Hematocrit (blood only) 32.1 % (37.0-47.0); Hemoglobin 10.2 g/dl (12.0-16.0); Immature Granulocytes % (auto) 0.9 %; Lymphocytes # (auto) 1.58 K/uL (1.20-3.40); Lymphocytes % (auto) 13.8 %; Mean Corpuscular Hemoglobin 24.8 pg (25.0-34.0); Mean Corpuscular Hgb Conc 31.8 g/dL (32.0-36.0); Mean Corpuscular Volume 77.9 fL (80.0-100.0); Mean Platelet Volume 9.2 fL (9.4-12.4); Monocytes # (auto) 1.22 K/uL (0.11-0.59); Monocytes % (auto) 10.6 %; Neutrophils # (auto) 8.32 K/uL (1.40-6.50); Neutrophils % (auto) 72.5 %; Platelet Count 375 K/uL (130-400); RDW Coefficient of Variation 17.2 % (11.5-14.5); RDW Standard Deviation 48.1 fL (36.4-46.3); Red Blood Count 4.12 M/uL (4.20-5.40); White Blood Count 11.47 K/ul (4.8-10.8)
[2023-11-22 08:20] LABS: BUN Creatinine Ratio 11.4 (10-20); Calcium 8.9 mg/dl (8.6-10.3); Creatinine Clr Calc Pharmacy 74.4 ml/min; Est GFR (African American) 79.4 ml/min; Est GFR (Non-African American) 68.5 ml/min; Potassium 3.4 mmol/L (3.5-5.1)
[2023-11-22] MEDS: IRON SUCROSE 300 MG in SODIUM CHLORIDE 0.9% 250 ML IV SCH (08:48)
[2023-11-22] MEDS: SPIRONOLACTONE 25 MG TAB PO SCH (08:48)
[2023-11-22] MEDS: PANTOprazole 40 MG TAB PO SCH (08:48)
[2023-11-22] MEDS: oxyCODONE HCL IR 5 MG TAB (IMMEDIATE RELEASE) PO PRN (10:16)
--- NOTE | 2023-11-22 10:39 | Hospitalist Progress Note ---
Date of Service November 22, 2023 Assessment & Plan (1) History of small bowel obstruction: Plan: S/p laparoscopy, laparotomy, resection of terminal ileum and cecum on 11/17/[address] Marquez With significant postoperative pain requiring transition to OIL BURNER INSTALLER, however this was discontinued due to concern for respiration suppression. Surgical site without signs of overlying infection Patient with flatus, tolerated progression to low fiber diet Surgical specimens pending, operative bowel appearance concerning for acute active Crohn's disease. Continue to follow this outpatient. (2) Hypertension: Plan: Consulted for postoperative hypertension On spironolactone at home Outpatient blood control intermittently elevated 150s to 160s but also with multiple measurements in the 120s.? White coat hypertension versus true hypertension above goals Postoperatively, patient had increasingly elevated blood pressures. Suspect Multimodal both likely with some sympathetic overdrive postoperatively and with continued pain combined with underlying primary hypertension. Labetalol x 1 given for SBP greater than 180, Pain control switch to scaled oxycodone 5-10 mg every 6 hours Home spironolactone increased to 25 mg, patient has history of hypokalemia; potassium is currently in the normal range At bedside assessment no vision change, no focal deficits, no encephalopathy indicate hypertensive emergency Continue increased spironolactone at 25 mg upon discharge, and recommend outpatient follow-up with PCP to discuss blood pressure management. (3) Hyperlipidemia: Plan: Continue simvastatin on dc (4) Depression: Plan: Citalopram continued (5) GERD (gastroesophageal reflux disease): Plan: Omeprazole converted to Protonix IVP while inpatient (6) Iron deficiency anemia: Plan: Patient with anemia baseline ranging approximately 9.712, 10.0 on 11/20 and microcytic. Transferrin saturation 12%, ferritin 9.0 on. 10/29/2023. Suspect combination of malabsorption with possible underlying IBD and potential losses related to such. Denies history of bleeding, melena, hematochezia, hemoptysis. Renal function is normal Patient has had difficulty with oral iron in the past, reports she tried this as a supplement not because she had a known history of anemia or deficiency but it did cause significant constipation Recommend Venofer 300 mg infusion daily up to 3 doses total -- only 1 dose given prior to discharge. Recommend further investigation/treatment in outpatient setting as needed. Plan CODE STATUS: Full code Admission and Anticipated Discharge Date Admission Date: November 16, 2023 Subjective Patient seen and evaluated at bedside. She was walking around her hospital room without significant pain. Patient reports she has tolerated her diet well, is moving her bowels, and her pain is controlled. We discussed continuing her increased dose of spironolactone at 25 mg upon discharge. Discussed signs of hypotension. Recommended follow-up with PCP for blood pressure management in 1 week. Physical Exam Physical Exam: General: A&Ox3. NAD. Cooperative. HEENT: Atraumatic, normocephalic. PERLAA. Pulm: CTAB A&P. -wheezes, -rales, -rhonchi. Symmetrical chest rise. No increased work of breathing. No respiratory distress. Cardiac: RRR, -mrg. Radial pulses intact and symmetrical. Abdominal: RLQ and midline abd TTP. Surgical dressing C/D/I. RLQ minimally tender, no guarding/rebound Ext: warm, dry. No pitting edema, mild soft tissue swelling. Results & Data Results & Data Vital Signs (Past 12 Hours) Vital Signs Temp Pulse Resp BP BP Pulse Ox O2 Del Method 11/22/23 10:18 37.2 C 88 16 153/71 H 92 Room Air 11/22/23 07:37 37.2 C 86 18 163/81 H 92 Room Air Laboratory Results Reviewed CBC Reviewed chemistries PG Care Time/CCT Total # of Minutes Spent Total Time Spent with Patient: Total time spent is greater than 50% in coordination of care (as documented) at patient's floor/unit and/or counseling patient: Coding Level of Care Code 21217 SUB INP/OBS CARE 3/50MIN Diagnoses History of small bowel obstruction Z87.19 Hypertension I10 Hyperlipidemia E78.5 Depression F32.9 GERD (gastroesophageal reflux disease) K21.9 Iron deficiency anemia D50.9
== END 2023-11-22 11:56 | disposition home or self-care (01) | DRG 331 ==
LOC: ED 15:44 → 3N 16:21